=== PATIENT | female | born 1930 | race Caucasian/White ===

== ENCOUNTER 2016-10-20 02:20 | Inpatient (IN) | payer OTHER, MEDICARE ==
[~2016-10-20] VITALS: Ht 175.3 cm; Wt 72.6 kg
[~2016-10-20 02:20] MED LIST: ACETAMINOPHEN500 M4 PO; AMITIZA8 MC1 PO; AMLODIPINE BESYL5 M1 PO; AZO CRANBERRY1 EAC1 PO; CIPRO500 M1 PO; DULOXETINE HCL60 MG PO; FENTANYL1 EAC7 TOP; GABAPENTIN100 M2 PO; LASIX40 M1 PO; LEVOTHYROXINE75 MCG PO; LEXAPRO10 M1 PO; LISINOPRIL2.5 M1 PO; MELATONIN3 M4 PO; MIRALAX17 G1 PO; OMEPRAZOLE10 M1 PO; ROXICODONE15 M1 PO; SPIRONOLACTONE25 M1 PO; TRAMADOL HCL50 M1 PO; VITAMIN D250000 UNIT PO
--- NOTE | 2016-10-20 02:34 | ED GENERAL ADULT ---
History of Present Illness General Chief Complaint: General Adult Stated Complaint: " BIBA PER MEDIC INFECTION" Source: patient, old records, EMS, W10 Exam Limitations: no limitations Vital Signs & Intake/Output Vital Signs & Intake/Output Vital Signs Date Time Temp Pulse Resp B/P Pulse O2 O2 Flow FiO2 Ox Delivery Rate 10/20 0304 Nasal 2.0L Cannula 10/20 0257 100.9 10/20 0223 100.9 123 20 114/55 95 Nasal 2.0L Cannula Allergies Coded Allergies: cetirizine (UNKNOWN PER 03/26/16) diazepam (UNKNOWN PER 03/26/16) Reconcile Medications Acetaminophen 500 MG TABLET 1 TAB PO TID PAIN (Reported) Amlodipine Besylate 5 MG TABLET 1 TAB PO DAILY HTN (Reported) Ciprofloxacin HCl (Cipro) 500 MG TABLET 500 MG PO BID INFECTION Cranberry Conc/C/Bacill Coag (Azo Cranberry Tablet) 1 EACH TABLET 1 TAB PO DAILY SUPPLEMENT (Reported) Duloxetine HCl 60 MG CAPSULE. 1 CAP PO DAILY MENTAL HEALTH (Reported) Ergocalciferol (Vitamin D2) (Vitamin D2) 50,000 UNIT CAPSULE 1 CAP PO Q30D SUPPLEMENT (Reported) Escitalopram Oxalate (Lexapro) 10 MG TABLET 1 TAB PO DAILY MENTAL HEALTH ( Reported) Fentanyl 1 EACH PATCH.TD72 1 PAT TOP Q72H PAIN (Reported) Furosemide (Lasix) 40 MG TABLET 1 TAB PO BID DIURETIC (Reported) Gabapentin 100 MG CAPSULE 2 CAP PO TID UNKNOWN (Reported) Levothyroxine Sodium 75 MCG TABLET 1 TAB PO 0600 THYROID (Reported) Lisinopril 2.5 MG TABLET 1 TAB PO DAILY HTN (Reported) Lubiprostone (Amitiza) 8 MCG CAPSULE 1 CAP PO DAILY GI (Reported) Melatonin 3 MG TABLET 1 TAB PO QPM SLEEP (Reported) Omeprazole 10 MG CAPSULE.DR 1 CAP PO 0600 GI (Reported) Oxycodone HCl (Roxicodone) 15 MG TABLET 1 TAB PO TID PAIN (Reported) moderate to severe pain Polyethylene Glycol 3350 (Miralax) 17 GM POWD.PACK 1 PAC PO DAILY GI ( Reported) dissolve in water Spironolactone 25 MG TABLET 12.5 MG PO DAILY DIURETIC (Reported) Tramadol HCl 50 MG TABLET 50 MG PO Q6 PRN PAIN MILD TO MODERATE Triage Nurses Notes Reviewed? yes HPI: Patient sent in from her senior care for evaluation of fever of 101 and confusion. Patient has a history of dementia but she is more confused than her baseline. Patient is unable to provide any history. ED Sepsis Exam Date of Focused Sepsis Exam: 10/20/16 Time of Focused Sepsis Exam: 314 Sepsis Cardiac Exam: Regular Rate/Rhythm Sepsis Resp Exam: CTA Sepsis Cap Refill Exam: <2 Sec Sepsis Peripheral Pulse Exam: Normal Sepsis Peripheral Pulse Location: Radial Sepsis Skin Color Exam: Normal for Ethnicity Skin Temp/Moisture Exam: Warm/Dry Past History Travel History Traveled to [place] past 21 day No Medical History Any Pertinent Medical History? 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 No Review of Systems Review of Systems Constitutional: Reports: see HPI. Physical Exam Physical Exam General Appearance: well developed/nourished, alert, awake, mild distress Head: atraumatic, normal appearance Eyes: Bilateral: PERRL, EOMI. Ears, Nose, Throat: normal pharynx, normal ENT inspection, hearing grossly normal Neck: normal inspection, supple, full range of motion Respiratory: normal breath sounds, chest non-tender, no respiratory distress, lungs clear Cardiovascular: regular rate/rhythm, normal peripheral pulses, systolic murmur Gastrointestinal: normal bowel sounds, soft, non-tender, no organomegaly Back: normal inspection, normal range of motion Extremities: LLE EDEMA AND ERYTHEMA Neurologic/Psych: no motor/sensory deficits, awake, alert, normal mood/affect Skin: intact, normal color, warm/dry Lymphatic: no anterior cervical venus Core Measures ACS in differential dx? No CVA/TIA Diagnosis: No Severe Sepsis Present: No Septic Shock Present: No Progress Differential Diagnoses I considered the following diagnoses in my evaluation of the patient: [AMI, CELLULITIS, UTI, PNEUMONIA] Plan of Care: Orders Procedure Date/time Status LACTIC ACID 10/20 615 Active Admit to inpatient 10/20 333 Active LACTIC ACID 10/20 315 Active Telemetry/Tinner Automatic 10/20 231 Active Straight Cath 10/20 231 Active BLOOD CULTURE 10/20 231 Active URINALYSIS 10/20 231 Complete TROPONIN LEVEL 10/20 231 Complete COMPREHENSIVE METABOLIC PANEL 10/20 231 Complete CBC WITHOUT DIFFERENTIAL 10/20 231 Complete EKG 10/20 231 Active Laboratory Tests 10/20/16 0322: Urine Color YEL, Urine Clarity CLEAR, Urine pH 7.0, Ur Specific [place] 1.010, Urine Protein TRACE H, Urine Ketones NEG, Urine Nitrite NEG, Urine Bilirubin NEG, Urine Urobilinogen 0.2, Ur Leukocyte Esterase NEG, Ur Microscopic SEDIMENT EXAMINED, Urine RBC 25-50 H, Urine WBC 1-3 H, Ur Epithelial Cells RARE, Urine Hemoglobin LARGE H, Urine Glucose NEG 10/20/16 0240: Anion Gap 10, Estimated GFR 39 L, BUN/Creatinine Ratio 22.3, Glucose 128 H, Calcium 8.2 L, Total Bilirubin 0.7, AST 18, ALT 20, Alkaline Phosphatase 45, Troponin I 0.07, Total Protein 6.7, Albumin 3.4 L, Globulin 3.3, Albumin/ Globulin Ratio 1.0 L, CBC w Diff MAN DIFF ORDERED, RBC 4.29, MCV 75.6 L, MCH 24.6 L, RDW 16.6 H, MPV 7.4, Gran % 91.9 H, Lymphocytes % 4.7 L, Monocytes % 3.3, Eosinophils % 0, Basophils % 0.1, Absolute Granulocytes 10.0 H, Segmented Neutrophils 82 H, Band Neutrophils 7 H, Absolute Lymphocytes 0.5 L, Lymphocytes 5 L, Monocytes 6, Absolute Monocytes 0.4, Absolute Eosinophils 0, Absolute Basophils 0, Platelet Estimate DECREASED, Poikilocytosis FEW, Basophilic Stippling SLIGHT, Anisocytosis 1+, Microcytic Cells 1+, Ovalocytes FEW, Stomatocytes FEW, PUBS MCHC 32.5 L Microbiology 10/20 240 BLOOD: Blood Culture - RECD 10/20 237 BLOOD: Blood Culture - RECD Diagnostic Imaging: Viewed by Me: Radiology Read. Discussed w/RAD: Radiology Read. Radiology Impression: PATIENT: MIHAI DUMONT PRESENT AGE: 86 PATIENT ACCOUNT NO: [id number] : 32 LOCATION: [facility] ORDERING PHYSICIAN: RISSA WALKER MD SERVICE DATE: 10/20/16 EXAM TYPE: RAD - [id number], LEFT EXAMINATION: XR TIBIA AND FIBULA, LEFT CLINICAL INFORMATION: Left lower extremity, erythema and swelling. COMPARISON: Left foot radiography 03/29/2016. TECHNIQUE: 2 views of the left tibia/fibula were obtained. FINDINGS: Diffuse subcutaneous edema about the left lower extremity. No subcutaneous gas is demonstrated. No acute osseous abnormalities. No evidence of osseous erosion. Degenerative changes at the knee. IMPRESSION: Diffuse subcutaneous edema about the left lower extremity concerning for cellulitis. No subcutaneous gas demonstrated. DICTATED BY: ANDRADE BLACKBURN MD DATE/TIME DICTATED:10/20/16303 [employer] HARD[employer] INSTALLER:MONROE DATE/TIME TRANSCRIBED:10/20/16303 CONFIDENTIAL, DO NOT COPY WITHOUT APPROPRIATE AUTHORIZATION. <Electronically signed in Other Vendor System> SIGNED BY: ANDRADE BLACKBURN MD 10/20/16315 CXR Impression: PATIENT: MIHAI DUMONT PRESENT AGE: 86 PATIENT ACCOUNT NO: [id number] : 32 LOCATION: [facility] ORDERING PHYSICIAN: RISSA WALKER MD SERVICE DATE: 10/20/16 EXAM TYPE: RAD - XRY-PORTABLE CHEST XRAY EXAMINATION: XR PORTABLE CHEST CLINICAL INFORMATION: Fever. Pneumonia. COMPARISON: Chest radiography 03/28/2016. TECHNIQUE: Portable view of the chest was obtained. FINDINGS: The lungs are fairly well expanded. There is left greater than right basilar opacification. No pneumothorax. Central vasculature prominence and mild interstitial prominence. Mediastinal contours are unchanged. No acute osseous abnormalities. IMPRESSION: 1. Left greater than right basilar opacification, consider atelectasis or other consolidation such as pneumonia. 2. Possible mild interstitial edema. DICTATED BY: ANDRADE BLACKBURN MD DATE/TIME DICTATED:10/20/16300 [employer] HARDWARE INSTALLER:MONROE DATE/TIME TRANSCRIBED:10/20/16300 CONFIDENTIAL, DO NOT COPY WITHOUT APPROPRIATE AUTHORIZATION. <Electronically signed in Other Vendor System> SIGNED BY: ANDRADE BLACKBURN MD 10/20/16 0319 Initial ED EKG: NSR, LVH, nonspecific ST T wave chg Prior EKG: unchanged Departure Departure Disposition: STILL A PATIENT Condition: Guarded Clinical Impression Primary Impression: Cellulitis Secondary Impressions: Pneumonia Referrals: HAILEY VASQUES MD (PCP/Family) Referred to [facility] as new patient No Departure Forms: Customer Survey General Discharge Information Admission Note Spoke With: HAILEY VASQUES MD Documentation of Exam: Documentation of any treatments & extenuating circumstances including Concerns Regarding Discharge (functional status, medication knowledge or non-compliance, living conditions, etc.) that warrant an admission rather than observation: [IV ABX, IV FLUIDS] Critical Care Note Critical Care Note Critical Care Time: non-applicable
[2016-10-20 02:51] LABS: ABSOLUTE BASOPHIL COUNT 0 /CUMM (0.0-0.2); ABSOLUTE EOSINOPHIL COUNT 0 /CUMM (0.0-0.7); ABSOLUTE LYMPH COUNT 0.5 /CUMM (1.2-3.4); ABSOLUTE MONOCYTE COUNT 0.4 /CUMM (0.10-0.60); BASOPHIL % 0.1 % (0.0-2.0); EOSINOPHIL % 0 % (0-5); GRANULOCYTE % 91.9 % (42.2-75.2); HEMATOCRIT 32.5 % (37-47); MEAN CORPUSCULAR HGB 24.6 PG (27.0-31.0); MEAN CORPUSCULAR HGB CONC 32.5 G/DL (33.0-37.0); MEAN CORPUSCULAR VOLUME 75.6 FL (81.0-99.0); MEAN PLATELET VOLUME 7.4 FL (7.4-10.4); PLATELET COUNT 91 /CUMM (130-400); RBC DISTRIBUTION WIDTH 16.6 % (11.5-14.5); RED BLOOD CELL CT 4.29 /CUMM (4.20-5.40); WHITE BLOOD CELL COUNT 10.9 /CUMM (4.8-10.8)
--- NOTE | 2016-10-20 03:10 | RADIOLOGY REPORT ---
EXAMINATION: XR PORTABLE CHEST CLINICAL INFORMATION: Fever. Pneumonia. COMPARISON: Chest radiography 03/28/2016. TECHNIQUE: Portable view of the chest was obtained. FINDINGS: The lungs are fairly well expanded. There is left greater than right basilar opacification. No pneumothorax. Central vasculature prominence and mild interstitial prominence. Mediastinal contours are unchanged. No acute osseous abnormalities. IMPRESSION: 1. Left greater than right basilar opacification, consider atelectasis or other consolidation such as pneumonia. 2. Possible mild interstitial edema.
--- NOTE | 2016-10-20 03:16 | RADIOLOGY REPORT ---
EXAMINATION: XR TIBIA AND FIBULA, LEFT CLINICAL INFORMATION: Left lower extremity, erythema and swelling. COMPARISON: Left foot radiography 03/29/2016. TECHNIQUE: 2 views of the left tibia/fibula were obtained. FINDINGS: Diffuse subcutaneous edema about the left lower extremity. No subcutaneous gas is demonstrated. No acute osseous abnormalities. No evidence of osseous erosion. Degenerative changes at the knee. IMPRESSION: Diffuse subcutaneous edema about the left lower extremity concerning for cellulitis. No subcutaneous gas demonstrated.
[2016-10-20] MEDS ORDERED: BISACODYL10 M1 PR (03:54)
[2016-10-20] MEDS ORDERED: FLEET ENEMA133 ML PR (03:55)
[2016-10-20] MEDS ORDERED: MILK OF MA400 MG/52 PO (03:56)
[2016-10-20] MEDS ORDERED: MINTOX SUSPENS355 ML PO (03:57)
[2016-10-20 07:08] VITALS: BP 100/50
--- NOTE | 2016-10-20 07:42 | Admission Certification ---
Admission Certification Certification Statement - As attending physician, I certify that at the time of - admission, based on clinical presentation, severity of - symptoms, need for further diagnostic testing and - therapeutic interventions, and risk of adverse outcomes - without in-hospital treatment, in my clinical assessment, - this patient requires an acute hospital stay for a minimum - of two nights or longer. I have also considered psychsocial - factors such as support system, advanced age, financial - issues, cognitive issues, and failed out-patient treatments, - past re-admission history, safety of patient, and lack of - compliance as applicable. Specific rationale supporting this admission is: Patient was found unresponsive and lethargic this morning with a fever of 101 she's got sepsis most likely is from the cellulitis of the leg as well as pneumonia.
--- NOTE | 2016-10-20 07:52 | PN- Att Addend ---
Attending Addendum Attending Brief Note Attending note. 86-year-old lady with long-standing history of chronic cellulitis of the leg with chronic skin changes and chronic pain syndrome patient was found lethargic and unresponsive this morning by the nurse at the [facility] facility also accompanied with a fever of 101. She was transferred to the hospital for evaluation. She is a DNR/DNI do not hospitalize but however this situation did notice was worried about her unresponsiveness and therefore she was transferred to the hospital. Patient is awake alert complaining that she is not feeling well she is weak and her legs are painful. She denies any cough or congestion any nausea vomiting. Past medical history History of CHF hypertension dyslipidemia history of 4 para 4 neuropathy history of dementia history of chronic back pain and chronic leg pain history of osteoarthritis of the lumbosacral spine spinal stenosis and osteoarthritis of the hip. History of GERD peptic ulcer disease history of the CKG stage II History of opioid dependence On examination vital signs blood pressure is 120/60 heart rate is 120 respirations are 22 O2 sat this 95% on 2 L temperature is 100.9. Patient awake alert Conjunctivae is pale sclerae anicteric S1-S2 is normal lungs shows diminished air entry bilaterally both bases abdomen is soft nontender bowel sounds are present Extremities shows chronic skin changes bilateral lower extremities with pigmentation of skin and shriveling of the skin with bipedal edema which is 1-2+ . Labs Hemoglobin is 10.6 hematocrit 32.5 white count 10.9sodium 136 potassium 4.0 chloride 99 bicarbonate 30 [place] 20 creatinine 1.3 UA is negative WBC is 2-3 Chest x-ray shows no evidence of any clear-cut infection. EKG shows normal sinus rhythm with LVH and nonspecific ST-T changes. Assessment most likely sepsis secondary to cellulitis of the leg. The patient IV Unasyn. 2 blood cultures urine cultures repeat chest x-ray after 48 hours continue IV fluids.
--- NOTE | 2016-10-20 08:16 | History & Physical ---
See Addendum General Information and HPI MD Statement: I have seen and personally examined JULIANNA DUMONT and documented this H&P. The patient is a 86 year old F who presented with a patient stated chief complaint of fever and lethary. Source of Information: [facility], ER records Exam Limitations: unable to give history, clinical condition, dementia History of Present Illness: 86-year-old woman with past medical history of hypertension, dementia, stage IV kidney disease, episodes of GI bleed in the past, chronic venous stasis ulcers, chronic cellulitis, thick bark-like legs and feet, who presented to ED from [facility] after she was found to be very lethargic , unresponsive and fever. The patient has advanced dementia and is unable to provide any history. Most of the history was taken from the [facility], ED records and Dr. Vasques, who knows the patient well. I called the facility and spoke with her nurse there, Marcela, who provided with further history. According to her the patient was found to have a fever of 101 at the nursing care facility along with being very lethargic and difficult to arouse. She was given Tylenol. She called Dr. Vasques who suggested to do blood work and give her antibiotics at the facility as the patient is DNI/DNR and DO NOT HOSPITALIZE, however because th patient had altered mental status with a fever she sent the patient to the [facility] ED where she was found to be in sepsis with a fever fof 101, hypotensive to 114/55 --> 81/47, leukocytosis of 20.1, no bands, and AMS. I called the POA listed, Justyna Monteiro (Renee), who is the patient's daughter according to Marcela, multiple times on all three numbers listed to discuss goals of care. The three numbers listed were: Home: Bus: [phone] I left a message on the [email or web address] on the cell phone number ([phone] ). The 'bus' number was reached but they stated there is no employee by the name of Justyna Monteiro (Renee) there. Marcela, the facility nurse, stated she got in touch with the POA before sending the patient to the ED. She also mentioned the POA has recently moved to [place] and previoulsy used to visit Julianna at the nursing care facility. The patient, while being examined by medicine on the floor was awake, alert, oriented to person, knew where she is from, that is [place], answerng all questions appropriately, not in any distress but was in pain and was asking for her oxycodone. Also stated Tylenol is 'useless.' Denied any chest pain, SOB, abdominal pain, N/V/D, but has constipation. Allergies/Medications Allergies: Coded Allergies: cetirizine (UNKNOWN PER 03/26/16) diazepam (UNKNOWN PER 03/26/16) Home Med list Acetaminophen 500 MG TABLET 1 TAB PO TID PAIN (Reported) Bisacodyl 10 MG SUPP.RECT 10 MG LA PRN IF MOM NOT EFFECTIVE (Reported) Cranberry Extract (Cranberry) 200 MG CAPSULE 1 TAB PO DAILY UTI PREVENTION ( Reported) Duloxetine HCl 60 MG CAPSULE.DR 1 CAP PO DAILY MENTAL HEALTH (Reported) Escitalopram Oxalate (Lexapro) 10 MG TABLET 1 TAB PO DAILY MENTAL HEALTH ( Reported) Fentanyl 1 EACH PATCH.TD72 1 PAT TOP Q72H PAIN (Reported) Furosemide (Lasix) 40 MG TABLET 1 TAB PO BID DIURETIC (Reported) Reason to Stop at ADM: HYPOTENSIVE AND ON FLUIDS Gabapentin 100 MG CAPSULE 3 CAP PO TID NEUROPATHY/PAIN (Reported) Levothyroxine Sodium 75 MCG TABLET 1 TAB PO 0600 THYROID (Reported) Lisinopril 2.5 MG TABLET 1 TAB PO DAILY HTN (Reported) Reason to Stop at ADM: HYPOTENSIVE Lubiprostone (Amitiza) 8 MCG CAPSULE 1 CAP PO DAILY GI (Reported) Mag Hydrox/Al Hydrox/Simeth (Mintox Suspension) 200 MG-200 MG-20 MG/5 ML ORAL.SUSP 20 ML PO Q6PRN PRN GI UPSET (Reported) Magnesium Hydroxide (Milk Of Magnesia) 400 MG/5 ML ORAL.SUSP 30 ML PO PRN CONSTIPATION (Reported) Na Phos,M-B/Na Phos,Di-Ba (Fleet Enema) 19 GRAM-7 GRAM/118 ML ENEMA IF DUCOLAX INEFFECTIVE (Reported) Omeprazole 10 MG CAPSULE.DR 1 CAP PO 0600 GI (Reported) Oxycodone HCl (Roxicodone) 15 MG TABLET 1 TAB PO TID PAIN (Reported) Reason to Stop at ADM: as per the [facility], THIS WAS DISCONTINUED ON 09/11/16 Oxycodone HCl 10 MG TABLET 1 TAB PO TID PAIN (Reported) Polyethylene Glycol 3350 (Miralax) 17 GM POWD.PACK 1 PAC PO DAILY GI ( Reported) dissolve in water Spironolactone 25 MG TABLET 12.5 MG PO DAILY DIURETIC (Reported) Reason to Stop at ADM: HYPOTENSIVE Compliance With Home Meds: GOOD Past History Travel History Traveled to [place] past 21 day No Medical History Neurological: dementia, NEUROPATHY EENT: NONE Cardiovascular: CHF, hypertension, hyperlipidemia Respiratory: NONE Gastrointestinal: GERD, peptic ulcer disease, upper GI bleed, duodenitis gastritis Hepatic: NONE Renal: STAGE 4 CKD Musculoskeletal: chronic back pain, osteoarthritis Psychiatric: anxiety Endocrine: hypothyroidism Blood Disorders: thrombocytopenia Cancer(s): NONE 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 [facility] Facility Services at Home: Nursing Primary Language: Romansh Living Will? yes Functional Ability ADLs Needs Assist: dressing, eating, toileting, bathing. Ambulation: LIVES AT A NURSING CARE FACILITY IADLs Needs Assist: shopping, housework, finances, food prep, telephone, transportation, medication admin. Review of Systems Review of Systems Constitutional: Reports: see HPI. EENTM: Reports: no symptoms. Cardiovascular: Reports: no symptoms. Respiratory: Reports: no symptoms. GI: Reports: no symptoms. Genitourinary: Reports: no symptoms. Musculoskeletal: Reports: muscle pain. Skin: Reports: change in skin color, erythema. Neurological/Psychological: Reports: confusion, dementia. Exam & Diagnostic Data Last 24 Hrs of Vital Signs/I&O Vital Signs Date Time Temp Pulse Resp B/P Pulse O2 O2 Flow FiO2 Ox Delivery Rate 10/20 0800 Nasal 2.0L Cannula 10/20 0708 98.8 75 20 100/50 95 Nasal 2.0L Cannula 10/20 0501 98.9 82 18 94/52 99 Nasal 2.0L Cannula 10/20 0430 99.3 10/20 0400 99.3 82 18 81/47 96 Nasal 2.0L Cannula 10/20 0304 Nasal 2.0L Cannula 10/20 0257 100.9 10/20 0223 100.9 123 20 114/55 95 Nasal 2.0L Cannula Intake & Output 10/20 1600 10/20 0800 10/20 0000 Intake Total 500 Output Total Balance 500 Intake, IV 500 Patient 130 lb Weight Physical Exam General Appearance Alert, Cooperative, No Acute Distress, ORIENTED TO PERSON AND KNOWS WHERE SHE IS FROM, DID NOT KNOW SHE IS IN [facility] Neck Supple, No JVD Cardiovascular Regular Rate, Normal S1, Normal S2, No Murmurs Lungs Clear to Auscultation, Normal Air Movement Abdomen Normal Bowel Sounds, Soft, No Tenderness Neurological Normal Speech, Normal Tone, ABLE TO FOLLOW SOME COMMANDS, ANSWERING TO QUESTIONS APPROPRIATELY, UNABLE TO MOVE LEGS, NO SENSATIONS IN THE LEGS Extremities LEG EDEMA, THICK, BARK LIKE SKIN OF BILATERAL EXTREMITIES, FOUL SMELL, ERYTHEMATOUS, HYPERPIGMENTED, LEFT > RIGHT Vascular UNABLE TO FEEL PULSES IN NICOLE FEET DUE TO THICK SKIN Last 24 Hrs of Labs/Khang: Laboratory Tests 10/20/16 0409: Lactic Acid 0.9 10/20/16 0322: Urine Color YEL, Urine Clarity CLEAR, Urine pH 7.0, Ur Specific [place] 1.010, Urine Protein TRACE H, Urine Ketones NEG, Urine Nitrite NEG, Urine Bilirubin NEG, Urine Urobilinogen 0.2, Ur Leukocyte Esterase NEG, Ur Microscopic SEDIMENT EXAMINED, Urine RBC 25-50 H, Urine WBC 1-3 H, Ur Epithelial Cells RARE, Urine Hemoglobin LARGE H, Urine Glucose NEG 10/20/16 0240: Anion Gap 10, Estimated GFR 39 L, BUN/Creatinine Ratio 22.3, Glucose 128 H, Calcium 8.2 L, Total Bilirubin 0.7, AST 18, ALT 20, Alkaline Phosphatase 45, Troponin I 0.07, Total Protein 6.7, Albumin 3.4 L, Globulin 3.3, Albumin/ Globulin Ratio 1.0 L, CBC w Diff MAN DIFF ORDERED, RBC 4.29, MCV 75.6 L, MCH 24.6 L, RDW 16.6 H, MPV 7.4, Gran % 91.9 H, Lymphocytes % 4.7 L, Monocytes % 3.3, Eosinophils % 0, Basophils % 0.1, Absolute Granulocytes 10.0 H, Segmented Neutrophils 82 H, Band Neutrophils 7 H, Absolute Lymphocytes 0.5 L, Lymphocytes 5 L, Monocytes 6, Absolute Monocytes 0.4, Absolute Eosinophils 0, Absolute Basophils 0, Platelet Estimate DECREASED, Poikilocytosis FEW, Basophilic Stippling SLIGHT, Anisocytosis 1+, Microcytic Cells 1+, Ovalocytes FEW, Stomatocytes FEW, PUBS MCHC 32.5 L Microbiology 10/200 BLOOD: Blood Culture - RECD 10/20 237 BLOOD: Blood Culture - RECD Diagnostic Data CXR Results 1. Left greater than right basilar opacification, consider atelectasis or other consolidation such as pneumonia. 2. Possible mild interstitial edema. Other Results x RAY OF TIBIA ANF FIBULA: FINDINGS: Diffuse subcutaneous edema about the left lower extremity. No subcutaneous gas is demonstrated. No acute osseous abnormalities. No evidence of osseous erosion. Degenerative changes at the knee. IMPRESSION: Diffuse subcutaneous edema about the left lower extremity concerning for cellulitis. No subcutaneous gas demonstrated. Assessment/Plan Assessment: 86-year-old woman with past medical history of hypertension, dementia, stage IV kidney disease, episodes of GI bleed, chronic venous stasis ulcers, chronic cellulitis, thick bark-like legs and feet, who presented to ED from [facility] after she was found to be very lethargic, unresponsive and fever. The patient has advanced dementia and is unable to provide any history. Most of the history was taken from the -10, ED records and Dr. Vasques, who knows the patient well. The patient was supposed to be DO NOT HOSPITALIZE but she was sent to the ED and was admited due to sepsis secondary to cellulitis. On admission he was found to have a BP of 114/55 that decraesed to 81/47 but responded to fluids and came up to 100/50 after one bag. Temp of 100.9, but this was post Tyenol that was given at the facility, HR of 123, decreased to 75 after hydration, RR 18, and oxygen saturation of 99 on 2 liters of oxygen. The CHEST X ray showed eft greater than right basilar opacification, consider atelectasis or other consolidation such as pneumonia. [id number], LEFT: Diffuse subcutaneous edema about the left lower extremity concerning for cellulitis. No subcutaneous gas demonstrated. WC 10.1, bands of 7, BUN/Cr 29/1.3, Glucose 128 Assesment and Plan: To general med Vitals every shift 1. Sepsis secondary to cellulitis: - Although the patient is a DNI DNR and do not hospitalize, she has been admitted for sepsis due to cellulitis. It is important to note that the patient has history of chronic cellulitis, chronic venous stasis ulcers, and bark-like thick skin. - For now will follow blood cultures - We'll treat for cellulitis with IV Unasyn - Tylenol as needed - Wound consult - Leg elevation - Compression stockings 2. Chronic kidney disease stage IV: - At baseline Will monitor - Avoid nephrotoxic drugs 3. History of chronic pain: The patient has his chronic pain and opioid dependence - As she came in with lethargy, although her mental status is different and she is very much alert now, will avoid overdose of narcotics - We'll continue his fentanyl patch to avoid withdrawal, 50 g every 72 hours, doron [place] 10/19/2016 could attribute and from [place] - Recently, on 09/11/16, dose of Roxicodone was decreased from 15 mg day to 10 mg daily, will continue with that for now. Will hold or decrease dose further if the patient becomes more lethargic - Patient takes gabapentin 300 mg 3 times a day however because of her kidney distally it is advisable that her dose should be lowered. The pharmacy she will be started on 100 mg 3 times a day. Keeping in mind the patient is DNI DNR and was a do not rehospitalize, a few the aim is for her to be more comfortable and she is drifting more towards comfort care measures then we may increase the dose of gabapentin keeping in mind that comfort measures and pain control would be priorities for Dr. greene and keep the chronic kidney disease in mind. 4. Continue with Lexapro, Cymbalta, levothyroxine, omeprazole 5. Constipation: The patient is on MiraLAX, mag ox, and images are, that should be continued while she is in the hospital 6. Patient has history of hypertension and is on lisinopri 2.5 mg daily, Lasix 40 mg twice a day and Aldactone 12.5 mg by mouth daily. Because she came in with hypotension, will hold off on all these medications for now. Keep hematocrit the respirator status and blood pressure and restart as needed. - EF of 65% on last echocardiogram in March 2016 7. Pain pathway with Tylenol as mild, oxycodone as moderate and fentanyl as severe 8. Regular diet with thin liquids (this was confirmed with Marcela, the patient' s nurse at [facility]) 9. Subcutaneous heparin for DVT prophylaxis 10. DNI/DNR - The patient was actually do not rehospitalize however she was sent to the hospital for fever and altered mental status. I tried calling the power of real estate attorney and all the numbers provided as mentioned in HPI however there was no response. Marcela, the nurse that he whacked said that she got in touch with Meli Monteiro, the power of real estate attorney, and that she is aware her mother is in the hospital. - It is important to get in touch with her again to discuss further goals of care and the extent of medical intervention duing this hospital admission, such as central line and transferred to ICU. As Ranked By This Provider Problem List: 1. Chronic pain 2. Sepsis 3. Hypothyroid 4. Fever 5. CKD (chronic kidney disease) 6. Hypertension 7. Cellulitis Core Measures/Miscellaneous Acute Coronary Syndrome ACS Diagnosis: No Cerebrovascular Accident CVA/TIA Diagnosis: No Congestive Heart Failure CHF Diagnosis: No Venous Thromboembolism VTE Risk Factors: Acute medical illness, Age > 40, Immobility, paresis, Obesity VTE Prophylaxis Ordered Inpt: [facility]- [facility] prophylaxis d/t: No contraindications No VTE Pharm Prophylaxis d/t: No contraindications VTE Diagnosis: No VTE Type: NONE VTE Confirmed by (Test): NONE Severe Sepsis Severe Sepsis Present: No BC x2: Yes Lactic Acid x2: Yes IV ABX Broad Spectrum: Yes Septic Shock Septic Shock Present: No Miscellaneous Documentation Attending Case Discussed With: HAILEY VASQUES MD Primary Care Physician: HAILEY VASQUES MD Patient sees these Specialists NONE Level of Patient Care: General Medicine Resident Review Statement Resident Statement: examined this patient, discussed with applications intern, reviewed EMR data (avail), reviewed images Other Findings: SAME ABOVE
--- NOTE | 2016-10-20 10:42 | Cons- Wound Care ---
General Information and HPI Consulting Request Date of Consult: 10/20/16 Requested By: HAILEY VASQUES MD Reason for Consult: Left leg cellulitis History of Present Illness: Patient is an 86-year-old woman with history of dementia chronic lymphedema chronic kidney disease admitted with fever leukocytosis and suspected cellulitis. She was previously seen for right lower extremity venous stasis ulcer which has healed. Allergies/Medications Allergies: Coded Allergies: cetirizine (UNKNOWN PER 03/26/16) diazepam (UNKNOWN PER 03/26/16) Home Med List: Acetaminophen 500 MG TABLET 1 TAB PO TID PAIN (Reported) Amlodipine Besylate 5 MG TABLET 1 TAB PO DAILY HTN (Reported) Bisacodyl 10 MG SUPP.RECT 10 MG PA PRN IF MOM NOT EFFECTIVE (Reported) Duloxetine HCl 60 MG CAPSULE.DR 1 CAP PO DAILY MENTAL HEALTH (Reported) Escitalopram Oxalate (Lexapro) 10 MG TABLET 1 TAB PO DAILY MENTAL HEALTH ( Reported) Fentanyl 1 EACH PATCH.TD72 1 PAT TOP Q72H PAIN (Reported) Furosemide (Lasix) 40 MG TABLET 1 TAB PO BID DIURETIC (Reported) Gabapentin 100 MG CAPSULE 2 CAP PO TID UNKNOWN (Reported) Levothyroxine Sodium 75 MCG TABLET 1 TAB PO 0600 THYROID (Reported) Lisinopril 2.5 MG TABLET 1 TAB PO DAILY HTN (Reported) Lubiprostone (Amitiza) 8 MCG CAPSULE 1 CAP PO DAILY GI (Reported) Mag Hydrox/Al Hydrox/Simeth (Mintox Suspension) 200 MG-200 MG-20 MG/5 ML ORAL.SUSP 20 ML PO Q6PRN PRN GI UPSET (Reported) Magnesium Hydroxide (Milk Of Magnesia) 400 MG/5 ML ORAL.SUSP 30 ML PO PRN CONSTIPATION (Reported) Melatonin 3 MG TABLET 1 TAB PO QPM SLEEP (Reported) Na Phos,M-B/Na Phos,Di-Ba (Fleet Enema) 19 GRAM-7 GRAM/118 ML ENEMA IF DUCOLAX INEFFECTIVE (Reported) Omeprazole 10 MG CAPSULE.DR 1 CAP PO 0600 GI (Reported) Oxycodone HCl (Roxicodone) 15 MG TABLET 1 TAB PO TID PAIN (Reported) Reason to Stop at ADM: as per the [facility], THIS WAS DISCONTINUED ON 09/11/16 Polyethylene Glycol 3350 (Miralax) 17 GM POWD.PACK 1 PAC PO DAILY GI ( Reported) dissolve in water Spironolactone 25 MG TABLET 12.5 MG PO DAILY DIURETIC (Reported) Tramadol HCl 50 MG TABLET 50 MG PO Q6 PRN PAIN MILD TO MODERATE Review of Systems Review of Systems: Noncontributory Past History Travel History Traveled to [place] past 21 day No Medical History Neurological: dementia, NEUROPATHY EENT: NONE Cardiovascular: CHF, hypertension, hyperlipidemia Respiratory: NONE Gastrointestinal: GERD, peptic ulcer disease, upper GI bleed, duodenitis gastritis Hepatic: NONE Renal: STAGE 4 CKD Musculoskeletal: chronic back pain, osteoarthritis Psychiatric: anxiety Endocrine: hypothyroidism Blood Disorders: thrombocytopenia Cancer(s): NONE [employer] 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 [facility] Facility Services at Home: Nursing Primary Language: Bruneian Living Will? yes ECHO Results (as available) Date of last Echo 03/28/16 EF% 65 Exam & Diagnostic Data Vital Signs and I&O Vital Signs Result Date Time O2 Delivery Nasal Cannula 10/20 08 O2 Flow Rate 2.0L 10/20 08 Pulse Ox 95 10/20 0708 B/P 100/50 10/20 07 Temp 98.8 10/20 0708 Pulse 75 10/20 0708 Resp 20 10/20 0708 Exam of both lower extremities show evidence of chronic edema left greater than right there are more specific changes of lymphedema over the left lower extremity there are no open wounds evident there is significant erythema of the left lower extremity extending to the posterior thigh and the popliteal area with erythema induration and some swelling to dorsalis pedis pulses are palpable bilaterally Assessment/Plan Impression/Plan: 86-year-old woman with chronic lymphedema admitted with suspected cellulitis of the left leg. Her edema appears to have diminished with bedrest. There do not appear to be open wounds though she may have small areas of skin breakdown as the portal of entry. Recommend leg elevation and leg moisturization follow-up cultures and complete her course of antibiotics. She would likely benefit from application of compression stockings following discharge to help better manage her edema. Consult Acknowledgment - Thank you for your consult request.
[2016-10-20] MEDS ORDERED: CRANBERRY200 MG PO (10:45)
[2016-10-20] MEDS ORDERED: OXYCODONE HCL10 M2 PO (10:45)
[2016-10-20 14:24] VITALS: BP 140/80
[2016-10-20 22:30] VITALS: BP 100/50
[2016-10-21 06:30] VITALS: BP 112/58
[2016-10-21 08:03] LABS: ABSOLUTE BASOPHIL COUNT 0 /CUMM (0.0-0.2); ABSOLUTE EOSINOPHIL COUNT 0.1 /CUMM (0.0-0.7); ABSOLUTE GRANULOCYTE CT 5.9 /CUMM (1.4-6.5); ABSOLUTE LYMPH COUNT 0.8 /CUMM (1.2-3.4); ABSOLUTE MONOCYTE COUNT 0.3 /CUMM (0.10-0.60); BASOPHIL % 0.1 % (0.0-2.0); EOSINOPHIL % 0.8 % (0-5); GRANULOCYTE % 83.1 % (42.2-75.2); HEMATOCRIT 30.3 % (37-47); MEAN CORPUSCULAR HGB 24.9 PG (27.0-31.0); MEAN CORPUSCULAR HGB CONC 32.8 G/DL (33.0-37.0); MEAN CORPUSCULAR VOLUME 75.9 FL (81.0-99.0); MEAN PLATELET VOLUME 8.1 FL (7.4-10.4); RBC DISTRIBUTION WIDTH 16.2 % (11.5-14.5); RED BLOOD CELL CT 3.99 /CUMM (4.20-5.40); WHITE BLOOD CELL COUNT 7.1 /CUMM (4.8-10.8)
[2016-10-21 09:03] VITALS: BP 120/70
--- NOTE | 2016-10-21 09:03 | Event Note ---
Event Note Event Note: Troponin elevated to 0.12, patient has ongoing chest pain alongwith shortness of breath and nausea. No ekg findings, will transfer to telemetry floor for continous cardiac monitoring. Will trend troponin and ekg. Attending made aware of this event, spoke to , he is okay with the transfer, [facility].
--- NOTE | 2016-10-21 09:20 | PN- Housestaff ---
DANNA PONCE 10/21/16 0911: Subjective Follow-up For: Sepsis secondary to cellulitis: Chronic kidney disease stage IV: Complaints: nausea Subjective: Patient was seen and examined this morning. She was complaining of nausea but denied any chest pain or shortness of breath. Of note patient complained of chest pain around 5:30 AM this morning and EKG and troponin were ordered and around 8:30 AM results came back and her troponins went up from 07 on admission to 0.1 210 creatinine went down from 1.2-1.1. Due to concern of ACS EKG was reviewed which didn't show any acute changes but was informed and I spoke with Dr. Berry and was advised to transfer patient to telemetry floor for closer monitoring. Review of Systems Constitutional: Reports: weakness. EENTM: Denies: blurred vision. Cardiovascular: Reports: edema. Denies: chest pain. Respiratory: Denies: cough, short of breath. Gastrointestinal: Reports: bloating, nausea. Genitourinary: Denies: dysuria. Musculoskeletal: Reports: joint pain. Objective Last 24 Hrs of Vital Signs/I&O Vital Signs Date Time Temp Pulse Resp B/P Pulse O2 O2 Flow FiO2 Ox Delivery Rate 10/21 0903 98.2 71 20 120/70 97 Room Air 10/21 0800 95 Nasal 2.0L Cannula 10/21 0630 97.5 60 18 112/58 95 Nasal 2.0L Cannula 10/20 2230 98.5 76 20 100/50 92 Nasal 2.0L Cannula 10/20 1424 98.5 80 20 140/80 94 10/20 1318 Nasal 2.0L Cannula Intake & Output 10/21 1600 10/21 0800 10/21 0000 Intake Total 600 240 Output Total 200 250 325 Balance -200 350 -85 Intake, IV 600 Intake, Oral 240 Number 1 1 2 Bowel Movements Output, Urine 200 250 325 Physical Exam General Appearance: Alert, Oriented X3, No Acute Distress Cardiovascular: systolic murmur Lungs: Normal Air Movement Abdomen: distended Extremities: bilateral lower extremity edema with chronic skin changes Current Medications: Current Medications Sig/Kian Start time Last Medication Dose Route Stop Time Status Admin Acetaminophen 500 MG TID 10/20 1000 AC 10/20 PO 2126 Acetaminophen 650 MG Q6P PRN 10/20 0830 AC 10/21 PO 0316 Al Hydroxide/Mg 30 ML Q6P PRN 10/20 0945 AC Hydroxide PO Ampicillin Sodium/ 1,500 MG Q12H 10/20 1000 AC 10/21 Sulbactam Sodium IV 0851 Sodium Chloride 100 ML Aspirin 325 MG ONCE ONE 10/21 0900 DC 10/21 PO 10/21 0901 0902 Bisacodyl 10 MG DAILY PRN 10/20 0945 AC [place] Duloxetine HCl 60 MG DAILY 10/21 1000 AC PO Escitalopram Oxalate 10 MG DAILY 10/21 1000 AC PO Fentanyl Citrate 50 MCG Q72H 10/20 0945 AC TOP Gabapentin 100 MG TID 10/20 1600 AC 10/20 PO 2126 Heparin Sodium 5,000 UNIT Q8 10/20 1400 AC 10/21 (Porcine) SC 0614 Influenza Virus 0.5 ML ONCE ONE 10/20 1515 DC Vaccine IM 10/20 1516 Levothyroxine Sodium 0.075 MG 0600 10/21 0600 AC 10/21 PO 0613 Lubiprostone 8 MCG DAILY 10/20 1043 AC PO Magnesium Hydroxide 30 ML DAILY PRN 10/20 0945 AC PO Morphine Sulfate 2 MG Q6 PRN 10/21 0900 AC IV Nitroglycerin 0.4 MG Q 5 MINUTES X 3 DO.. 10/21 0900 AC SL Omeprazole 20 MG DAILY AC 10/20 0945 AC 10/21 PO 0613 Ondansetron HCl 4 MG Q6 PRN 10/21 0900 AC 10/21 IV 0858 Oxycodone HCl 10 MG Q8 10/20 1400 AC 10/21 PO 0618 Oxycodone HCl 5 MG Q6P PRN 10/20 1000 AC 10/20 PO 1126 Polyethylene Glycol 17 GM DAILY 10/20 1000 AC PO Sodium Chloride 1,000 ML Q13H 10/20 0830 AC 10/20 IV 2127 Last 24 Hrs of Lab/Khang Results Last 24 Hrs of Labs/Mics: Laboratory Tests 10/21/16614: Troponin I Cancelled 10/21/16614: Anion Gap 9, Estimated GFR 47 L, BUN/Creatinine Ratio 22.7, Troponin I 0.12 *H, CBC w Diff Pending, WBC Pending, RBC Pending, Hgb Pending, Hct Pending, MCV Pending, MCH Pending, RDW Pending, Plt Count Pending, MPV Pending, PUBS MCHC Pending Assessment/Plan Assessment: 6-year-old woman with past medical history of hypertension, dementia, stage IV kidney disease, episodes of GI bleed, chronic venous stasis ulcers, chronic cellulitis, thick bark-like legs and feet, who presented to ED from [facility] after she was found to be very lethargic, unresponsive and fever. The patient has advanced dementia and is unable to provide any history. Most of the history was taken from the [facility], ED records and Dr. Madsen, who knows the patient well. The patient was supposed to be DO NOT HOSPITALIZE but she was sent to the ED and was admited due to sepsis secondary to cellulitis. On admission he was found to have a BP of 114/55 that decraesed to 81/47 but responded to fluids and came up to 100/50 after one bag. Temp of 100.9, but this was post Tyenol that was given at the facility, HR of 123, decreased to 75 after hydration, RR 18, and oxygen saturation of 99 on 2 liters of oxygen. The CHEST X ray showed eft greater than right basilar opacification, consider atelectasis or other consolidation such as pneumonia. [id number], LEFT: Diffuse subcutaneous edema about the left lower extremity concerning for cellulitis. No subcutaneous gas demonstrated. WC 10.1, bands of 7, BUN/Cr 29/1.3, Glucose 128 Assesment and Plan: To general med Vitals every shift 1. Sepsis secondary to cellulitis: - Although the patient is a DNI DNR and do not hospitalize, she has been admitted for sepsis due to cellulitis. It is important to note that the patient has history of chronic cellulitis, chronic venous stasis ulcers, and bark-like thick skin. - -Patient is on IV Unasyn - Tylenol as needed - Wound consult appreciated - Leg elevation - Compression stockings 2. Chronic kidney disease stage IV: - At baseline Will monitor - Avoid nephrotoxic drugs 3. History of chronic pain: The patient has his chronic pain and opioid dependence - As she came in with lethargy, although her mental status is different and she is very much alert now, will avoid overdose of narcotics - We'll continue his fentanyl patch to avoid withdrawal, 50 g every 72 hours, [facility] 10/19/2016 could attribute and from [facility] - Recently, on 09/11/16, dose of Roxicodone was decreased from 15 mg day to 10 mg daily, will continue with that for now. Will hold or decrease dose further if the patient becomes more lethargic - Patient takes gabapentin 300 mg 3 times a day however because of her kidney distally it is advisable that her dose should be lowered. The pharmacy she will be started on 100 mg 3 times a day. Keeping in mind the patient is DNI DNR and was a do not rehospitalize, a few the aim is for her to be more comfortable and she is drifting more towards comfort care measures then we may increase the dose of gabapentin keeping in mind that comfort measures and pain control would be priorities for Dr. greene and keep the chronic kidney disease in mind. 4. Continue with Lexapro, Cymbalta, levothyroxine, omeprazole 5. Constipation: The patient is on MiraLAX, mag ox, and images are, that should be continued while she is in the hospital 6. Patient has history of hypertension and is on lisinopri 2.5 mg daily, Lasix 40 mg twice a day and Aldactone 12.5 mg by mouth daily. Because she came in with hypotension, will hold off on all these medications for now. Keep hematocrit the respirator status and blood pressure and restart as needed. - EF of 65% on last echocardiogram in March 2016 7. Pain pathway with Tylenol as mild, oxycodone as moderate and fentanyl as severe 8. Regular diet with thin liquids (this was confirmed with Marcela, the patient' s nurse at [facility]) 9. Subcutaneous heparin for DVT prophylaxis 10. An episode of chest pain, nausea and elevated troponins We have to rule out ACS. Patient needs to be transferred to telemetry floor for closer monitoring. Patient was discussed with Dr. Berry and he will see the patient today. Dr. Julian was also informed. We will trend troponins and EKGs. 11. DNI/DNR - The patient was actually do not rehospitalize however she was sent to the hospital for fever and altered mental status. I tried calling the power of corporate associate attorney and all the numbers provided as mentioned in HPI however there was no response. Marcela, the nurse that he whacked said that she got in touch with Meli Monteiro, the power of corporate associate attorney, and that she is aware her mother is in the hospital. - It is important to get in touch with her again to discuss further goals of care and the extent of medical intervention duing this hospital admission, such as central line and transferred to ICU. Problem List: 1. Cellulitis 2. CKD (chronic kidney disease) 3. Hypertension Pain Ratin Pain Location: Lower extremities Pain Goal: Remain pain free Pain Plan: Tylenol Tomorrow's Labs & Rationales: CBC and CMP TIFFANIE ANNA MD 10/21/16 1211: Objective Last 24 Hrs of Vital Signs/I&O Vital Signs Date Time Temp Pulse Resp B/P Pulse O2 O2 Flow FiO2 Ox Delivery Rate 10/21 1045 98.3 79 20 118/54 94 Nasal 2.0L Cannula 10/21 0903 98.2 71 20 120/70 97 Room Air 10/21 0800 95 Nasal 2.0L Cannula 10/21 0630 97.5 60 18 112/58 95 Nasal 2.0L Cannula 10/20 2230 98.5 76 20 100/50 92 Nasal 2.0L Cannula 10/20 1424 98.5 80 20 140/80 94 10/20 1318 Nasal 2.0L Cannula Intake & Output 10/21 1600 10/21 0800 10/21 0000 Intake Total 600 240 Output Total 200 250 325 Balance -200 350 -85 Intake, IV 600 Intake, Oral 240 Number 1 1 2 Bowel Movements Output, Urine 200 250 325 Attending MD Review Statement Attending Statement Attending MD Statement: examined this patient, discuss w/resident/PA/DIVING JUDGE, agreed w/resident/PA/DIVING JUDGE, reviewed EMR data (avail), amended to note Attending Assessment/Plan: Mrs. Monroe was interviewed, examined, and her EMR reviewed. She denies fever, chills, chest pain and shortness of breath. At the time of her examination she is afebrile with stable vital signs. Physical exam shows bilateral fine rales at both bases. Cardiovascular exam reveals regular rate and rhythm with a 3/6 systolic ejection murmur. Lower extremities are notable for edema and stasis changes. They are bilaterally mildly warm to the touch. WBCs are as noted above and cultures are pending. Changes and troponin level are noted. EKG now shows Q waves in leads 3 and aVF. Culture should be followed and antibiotics adjusted accordingly. We await cardiology input but in the meantime we will restart her lisinopril and initiate beta magdy therapy with metoprolol 12.5 mg twice a day. Present maintenance medication should be continued.
[2016-10-21 10:36] LABS: PLATELET COUNT 69 /CUMM (130-400)
[2016-10-21 10:45] VITALS: BP 118/54
--- NOTE | 2016-10-21 15:28 | Cons- Cardiology ---
General Information and HPI Consulting Request Date of Consult: 10/21/16 Requested By: HAILEY VASQUES MD Reason for Consult: Positive troponin History of Present Illness: The patient is an 86-year-old female with history of hypertension, stage IV kidney disease, dementia, chronic venous stasis ulcers, and chronic cellulitis. She is sent to the hospital from her senior care for fever with lethargy and decreased responsiveness. The patient is feeling better now. She denies any recent chest pain, although she does note that she has had chest discomfort with exertion in the past. No current shortness of breath. No diaphoresis. She is found to have sepsis secondary to cellulitis, and is admitted for antibiotic therapy. I am consulted because of a positive troponin. Allergies/Medications Allergies: Coded Allergies: cetirizine (UNKNOWN PER 03/26/16) diazepam (UNKNOWN PER 03/26/16) Home Med List: Acetaminophen 500 MG TABLET 1 TAB PO TID PAIN (Reported) Amoxicillin/Potassium Clav (Augmentin 875-125 Tablet) 875 MG-125 MG TABLET 1 TAB PO BID ANTIBIOTIC, INFECTION Bisacodyl 10 MG SUPP.RECT 10 MG AK PRN IF MOM NOT EFFECTIVE (Reported) Cranberry Extract (Cranberry) 200 MG CAPSULE 1 TAB PO DAILY UTI PREVENTION ( Reported) Duloxetine HCl 60 MG CAPSULE.DR 1 CAP PO DAILY MENTAL HEALTH (Reported) Escitalopram Oxalate (Lexapro) 10 MG TABLET 1 TAB PO DAILY MENTAL HEALTH ( Reported) Fentanyl 1 EACH PATCH.TD72 1 PAT TOP Q72H PAIN (Reported) Furosemide (Lasix) 40 MG TABLET 1 TAB PO BID DIURETIC (Reported) Reason to Stop at ADM: HYPOTENSIVE AND ON FLUIDS Gabapentin 100 MG CAPSULE 3 CAP PO TID NEUROPATHY/PAIN (Reported) Levothyroxine Sodium 75 MCG TABLET 1 TAB PO 0600 THYROID (Reported) Lisinopril 2.5 MG TABLET 1 TAB PO DAILY HTN (Reported) Reason to Stop at ADM: HYPOTENSIVE Lubiprostone (Amitiza) 8 MCG CAPSULE 1 CAP PO DAILY GI (Reported) Mag Hydrox/Al Hydrox/Simeth (Mintox Suspension) 200 MG-200 MG-20 MG/5 ML ORAL.SUSP 20 ML PO Q6PRN PRN GI UPSET (Reported) Magnesium Hydroxide (Milk Of Magnesia) 400 MG/5 ML ORAL.SUSP 30 ML PO PRN CONSTIPATION (Reported) Metoprolol Tartrate 25 MG TABLET 0.5 MG PO BID [employer] Na Phos,M-B/Na Phos,Di-Ba (Fleet Enema) 19 GRAM-7 GRAM/118 ML ENEMA IF DUCOLAX INEFFECTIVE (Reported) Omeprazole 10 MG CAPSULE.DR 1 CAP PO 0600 GI (Reported) Oxycodone HCl 10 MG TABLET 1 TAB PO TID PAIN (Reported) Polyethylene Glycol 3350 (Miralax) 17 GM POWD.PACK 1 PAC PO DAILY GI ( Reported) dissolve in water Spironolactone 25 MG TABLET 12.5 MG PO DAILY DIURETIC (Reported) Reason to Stop at ADM: HYPOTENSIVE Current Medications: Current Medications Sig/Kian Start time Last Medication Dose Route Stop Time Status Admin Acetaminophen 650 MG .STK-MED ONE 10/21 0312 DC PO 10/21 0313 Acetaminophen 500 MG TID 10/20 1000 AC 10/21 PO 0931 Acetaminophen 650 MG Q6P PRN 10/20 0830 AC 10/21 PO 0316 Al Hydroxide/Mg 30 ML Q6P PRN 10/20 0945 AC Hydroxide PO Ampicillin Sodium/ 1,500 MG Q12H 10/20 1000 AC 10/21 Sulbactam Sodium IV 0851 Sodium Chloride 100 ML Aspirin 325 MG ONCE ONE 10/21 0900 DC 10/21 PO 10/21 0901 0902 Bisacodyl 10 MG DAILY PRN 10/20 0945 AC [place] Duloxetine HCl 60 MG DAILY 10/21 1000 AC 10/21 PO 0932 Escitalopram Oxalate 10 MG DAILY 10/21 1000 AC 10/21 PO 0932 Fentanyl Citrate 50 MCG Q72H 10/20 0945 AC TOP Gabapentin 100 MG TID 10/20 1600 AC 10/21 PO 0932 Heparin Sodium 5,000 UNIT Q8 10/20 1400 AC 10/21 (Porcine) SC 1336 Levothyroxine Sodium 0.075 MG 0600 10/21 0600 AC 10/21 PO 0613 Lisinopril 2.5 MG DAILY 10/21 1245 AC 10/21 PO 1441 Lubiprostone 8 MCG DAILY 10/20 1043 AC 10/21 PO 0931 Magnesium Hydroxide 30 ML DAILY PRN 10/20 0945 AC PO Metoprolol Tartrate 12.5 MG BID 10/21 1246 AC 10/21 PO 1442 Morphine Sulfate 2 MG Q6 PRN 10/21 0900 AC IV Nitroglycerin 0.4 MG Q 5 MINUTES X 3 DO.. 10/21 0900 AC SL Omeprazole 20 MG DAILY AC 10/20 0945 AC 10/21 PO 0613 Ondansetron HCl 4 MG Q6 PRN 10/21 0900 AC 10/21 IV 0858 Oxycodone HCl 10 MG Q8 10/21 1400 AC 10/21 PO 1336 Oxycodone HCl 10 MG Q8 10/20 1400 DC 10/21 PO 0618 Oxycodone HCl 5 MG Q6P PRN 10/20 1000 AC 10/21 PO 0931 Patient Medication 1 UNIT ONE NR 10/21 1345 DC Teaching ED 10/21 1400 Polyethylene Glycol 17 GM DAILY 10/20 1000 AC PO Sodium Chloride 1,000 ML Q13H 10/20 0830 AC 10/21 IV 1242 Review of Systems Review of Systems: No rash. No tremor. No diaphoresis. No melena. 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 [facility] Facility Services at Home: Nursing Primary Language: Citizen Of [place] Smoking Status: Never Smoked Living Will? yes Functional Ability ADLs Needs Assist: dressing, eating, toileting, bathing. Ambulation: LIVES AT A NURSING CARE FACILITY IADLs Needs Assist: shopping, housework, finances, food prep, telephone, transportation, medication admin. ECHO Results (as available) Date of last Echo 03/28/16 EF% 65 Exam & Diagnostic Data Vital Signs and I&O Vital Signs Date Time Temp Pulse Resp B/P Pulse O2 O2 Flow FiO2 Ox Delivery Rate 10/21 1442 74 122/64 10/21 1441 72 122/64 10/21 1045 Nasal 2.0L Cannula 10/21 1045 98.3 79 20 118/54 94 Nasal 2.0L Cannula 10/21 0903 98.2 71 20 120/70 97 Room Air 10/21 0800 95 Nasal 2.0L Cannula 10/21 0630 97.5 60 18 112/58 95 Nasal 2.0L Cannula 10/20 2230 98.5 76 20 100/50 92 Nasal 2.0L Cannula Intake & Output 10/21 1600 10/21 0800 10/21 0000 10/20 1600 10/20 0800 10/20 0000 Intake Total 1320 600 240 400 500 Output Total 700 250 325 950 Balance 620 350 -85 -550 500 Intake, IV 600 600 500 Intake, Oral 720 240 400 Number 1 1 2 Bowel Movements Output, Urine 700 250 325 950 Patient 160 lb 130 lb Weight Physical Exam: Gen: The patient is in no acute distress HEENT: Normal nose, ears, and oropharynx. Pupils equal bilaterally. Conjunctiva normal. Neck: Supple with no JVD, no masses, and no thyromegaly Lungs: Clear to auscultation with normal respiratory effort Heart: RRR, S1, S2, 2/6 systolic murmur. 2+ peripheral edema, 2+ pulses in the lower extremities bilaterally Abdomen: Soft, nontender, no masses. No hepatomegaly. No splenomegaly Extremities: No clubbing or cyanosis. Normal muscle strength in the upper and lower extremities Skin: Normal skin turgor with venous stasis changes Neuro: Cranial nerves intact. Sensation intact Psych: Alert and oriented 3 with appropriate affect Labs/Khang Results: Laboratory Tests 10/21 10/21 10/21 1200 0615 0615 Chemistry Sodium (137 - 145 mmol/L) 139 Potassium (3.5 - 5.1 mmol/L) 3.8 Chloride (98 - 107 mmol/L) 103 Carbon Dioxide (22 - 30 mmol/L) 27 Anion Gap (5 - 16) 9 BUN (7 - 17 mg/dL) 25 H Creatinine (0.5 - 1.0 mg/dL) 1.1 H Estimated GFR (>60 ml/min) 47 L BUN/Creatinine Ratio (7 - 25 %) 22.7 Troponin I (< 0.11 ng/ml) 0.11 *H Cancelled 0.12 *H Hematology CBC w Diff NO MAN DIFF REQ WBC (4.8 - 10.8 /CUMM) 7.1 RBC (4.20 - 5.40 /CUMM) 3.99 L Hgb (12.0 - 16.0 G/DL) 9.9 L Hct (37 - 47 %) 30.3 L MCV (81.0 - 99.0 FL) 75.9 L MCH (27.0 - 31.0 PG) 24.9 L RDW (11.5 - 14.5 %) 16.2 H Plt Count (130 - 400 /CUMM) 69 L MPV (7.4 - 10.4 FL) 8.1 Gran % (42.2 - 75.2 %) 83.1 H Lymphocytes % (20.5 - 51.1 %) 11.9 L Monocytes % (1.7 - 9.3 %) 4.1 Eosinophils % (0 - 5 %) 0.8 Basophils % (0.0 - 2.0 %) 0.1 Absolute Granulocytes (1.4 - 6.5 /CUMM) 5.9 Absolute Lymphocytes (1.2 - 3.4 /CUMM) 0.8 L Absolute Monocytes (0.10 - 0.60 /CUMM) 0.3 Absolute Eosinophils (0.0 - 0.7 /CUMM) 0.1 Absolute Basophils (0.0 - 0.2 /CUMM) 0 PUBS MCHC (33.0 - 37.0 G/DL) 32.8 L 10/2015 0409 0322 Chemistry Lactic Acid (0.7 - 2.1 mmol/L) Cancelled 0.9 Urines Urine Color (YEL,AMB,STR) YEL Urine Clarity (CLEAR) CLEAR Urine pH (5.0 - 8.0) 7.0 Ur Specific [place] (1.001 - 1.035) 1.010 Urine Protein (NEG,<30 MG/DL) TRACE H Urine Ketones (NEG) NEG Urine Nitrite (NEG) NEG Urine Bilirubin (NEG) NEG Urine Urobilinogen (0.1 - 1.0 EU/dl) 0.2 Ur Leukocyte Esterase (NEG) NEG Ur Microscopic SEDIMENT EXAMINED Urine RBC (0 - 5 /HPF) 25-50 H Urine WBC (0 - 2 /HPF) 1-3 H Ur Epithelial Cells (NONE,FEW) RARE Urine Hemoglobin (NEG) LARGE H Urine Glucose (N MG/DL) NEG 10/20 0240 Chemistry Sodium (137 - 145 mmol/L) 138 Potassium (3.5 - 5.1 mmol/L) 4.0 Chloride (98 - 107 mmol/L) 99 Carbon Dioxide (22 - 30 mmol/L) 30 Anion Gap (5 - 16) 10 BUN (7 - 17 mg/dL) 29 H Creatinine (0.5 - 1.0 mg/dL) 1.3 H Estimated GFR (>60 ml/min) 39 L BUN/Creatinine Ratio (7 - 25 %) 22.3 Glucose (65 - 99 mg/dL) 128 H Calcium (8.4 - 10.2 mg/dL) 8.2 L Total Bilirubin (0.2 - 1.3 mg/dL) 0.7 AST (14 - 36 U/L) 18 ALT (9 - 52 U/L) 20 Alkaline Phosphatase (<127 U/L) 45 Troponin I (< 0.11 ng/ml) 0.07 Total Protein (6.3 - 8.2 g/dL) 6.7 Albumin (3.5 - 5.0 g/dL) 3.4 L Globulin (1.9 - 4.2 gm/dL) 3.3 Albumin/Globulin Ratio (1.1 - 2.2 %) 1.0 L Hematology CBC w Diff MAN DIFF ORDERED WBC (4.8 - 10.8 /CUMM) 10.9 H RBC (4.20 - 5.40 /CUMM) 4.29 Hgb (12.0 - 16.0 G/DL) 10.6 L Hct (37 - 47 %) 32.5 L MCV (81.0 - 99.0 FL) 75.6 L MCH (27.0 - 31.0 PG) 24.6 L RDW (11.5 - 14.5 %) 16.6 H Plt Count (130 - 400 /CUMM) 91 L MPV (7.4 - 10.4 FL) 7.4 Gran % (42.2 - 75.2 %) 91.9 H Lymphocytes % (20.5 - 51.1 %) 4.7 L Monocytes % (1.7 - 9.3 %) 3.3 Eosinophils % (0 - 5 %) 0 Basophils % (0.0 - 2.0 %) 0.1 Absolute Granulocytes (1.4 - 6.5 /CUMM) 10.0 H Segmented Neutrophils (42.2 - 75.2 %) 82 H Band Neutrophils (0.0 - 5.0 %) 7 H Absolute Lymphocytes (1.2 - 3.4 /CUMM) 0.5 L Lymphocytes (20.5 - 51.1 %) 5 L Monocytes (1.7 - 9.3 %) 6 Absolute Monocytes (0.10 - 0.60 /CUMM) 0.4 Absolute Eosinophils (0.0 - 0.7 /CUMM) 0 Absolute Basophils (0.0 - 0.2 /CUMM) 0 Platelet Estimate (ADEQUATE) DECREASED Poikilocytosis FEW Basophilic Stippling SLIGHT Anisocytosis 1+ Microcytic Cells 1+ Ovalocytes FEW Stomatocytes FEW PUBS MCHC (33.0 - 37.0 G/DL) 32.5 L Diagnostic Data EKG Results EKG tracing is independently reviewed, and reveals normal sinus rhythm at 70, left atrial melena, inferior infarct age undetermined, possible anterior infarct age undetermined CXR Results 1. Left greater than right basilar opacification, consider atelectasis or other consolidation such as pneumonia. 2. Possible mild interstitial edema. Other Results Echocardiogram 03/28/16: Normal size left ventricle. Mild concentric left ventricular hypertrophy. Normal left ventricular ejection fraction visually estimated at greater than 65 %. Mildly elevated LVOT velocity at 1.4 m/s. Normal left ventricular diastolic filling pattern for age. Normal right ventricular size and function. Borderline atrial dilatation. Trace mitral regurgitation. Mild aortic stenosis. Trace tricuspid regurgitation. Mildly dilated IVC. Assessment/Plan Assessment/Plan Assessment: 1. Dementia 2. Hypertension 3. Chronic kidney disease 4. Sepsis secondary to cellulitis 5. Mild troponin elevation with minor EKG changes. Likely demand ischemia. No evidence of acute coronary syndrome at this time. Plan: * Antibiotics as per the medical service * Continue low-dose metoprolol * Continue to monitor troponin. * Repeat EKG tomorrow. Consult Acknowledgment - Thank you for your consult request.
[2016-10-21 16:00] VITALS: BP 122/60
[2016-10-22] VITALS: BP 130/54
[2016-10-22 06:36] LABS: ABSOLUTE BASOPHIL COUNT 0 /CUMM (0.0-0.2); ABSOLUTE EOSINOPHIL COUNT 0 /CUMM (0.0-0.7); ABSOLUTE GRANULOCYTE CT 7.2 /CUMM (1.4-6.5); ABSOLUTE LYMPH COUNT 0.7 /CUMM (1.2-3.4); ABSOLUTE MONOCYTE COUNT 0.4 /CUMM (0.10-0.60); BASOPHIL % 0.1 % (0.0-2.0); EOSINOPHIL % 0.5 % (0-5); GRANULOCYTE % 86.2 % (42.2-75.2); HEMATOCRIT 31.9 % (37-47); MEAN CORPUSCULAR HGB 24.9 PG (27.0-31.0); MEAN CORPUSCULAR HGB CONC 32.4 G/DL (33.0-37.0); MEAN CORPUSCULAR VOLUME 76.6 FL (81.0-99.0); MEAN PLATELET VOLUME 8.2 FL (7.4-10.4); PLATELET COUNT 89 /CUMM (130-400); RBC DISTRIBUTION WIDTH 16.4 % (11.5-14.5); RED BLOOD CELL CT 4.17 /CUMM (4.20-5.40)
[2016-10-22 07:09] LABS: WHITE BLOOD CELL COUNT 8.4 /CUMM (4.8-10.8)
[2016-10-22 08:08] VITALS: BP 140/70
--- NOTE | 2016-10-22 13:00 | PN- Att Addend ---
Attending Addendum Attending Brief Note Mrs. Monroe was interviewed, examined and her EMR was reviewed. Of note is a low-grade temperature to 99.2 with an increase in oxygen requirement as well as mild to moderate tachypnea. Her surveillance culture is growing MRSA as well as 1 of 2 blood cultures with gram-positive cocci and clusters. Her previous chest x-ray is showing mildly increased interstitial markings. We will institute contact precautions and follow her blood culture to tailor her antibiotic regimen. In addition given her pulmonary findings above we should do a follow-up chest x-ray and if indicated restart her diuretic.
--- NOTE | 2016-10-22 13:03 | RADIOLOGY REPORT ---
EXAMINATION: XR CHEST CLINICAL INFORMATION: Sepsis and leukocytosis. Evaluate for pneumonia. COMPARISON: 10/20/2016 TECHNIQUE: PA and lateral views of the chest were obtained. FINDINGS: Interval worsening bilateral patchy pulmonary opacities -- now involving upper lobes -- from pneumonia and/or superimposed septic emboli. Small bilateral pleural effusions. Stable cardiomegaly. Atherosclerotic calcification of the thoracic aorta. Bones appear diffusely osteopenic. IMPRESSION: Interval worsening pulmonary disease. There are patchy bilateral airspace opacities and small pleural effusions.
--- NOTE | 2016-10-22 15:44 | PN- Housestaff ---
Subjective Follow-up For: Sepsis secondary to cellulitis Chronic kidney disease stage IV Subjective: I saw and examined the patient today morning. She is doing much better today, alert and oriented. Review of Systems Constitutional: Reports: see HPI, malaise, weakness. EENTM: Reports: no symptoms. Cardiovascular: Reports: see HPI, edema. Denies: chest pain. Respiratory: Denies: cough, short of breath. Comments: ROS negative except the above. Objective Last 24 Hrs of Vital Signs/I&O Vital Signs Date Time Temp Pulse Resp B/P Pulse O2 O2 Flow FiO2 Ox Delivery Rate 10/22 1600 97.6 84 18 142/70 93 Nasal 5.0L Cannula 10/22 1600 95 Nasal 5.0L Cannula 10/22 0808 97.0 70 20 140/70 93 Nasal 5.0L Cannula 10/22 0800 94 Nasal 5.0L Cannula 10/22 0000 94 Nasal 4.0L Cannula 10/22 0000 99.2 77 26 130/54 94 Nasal 4.0L Cannula Intake & Output 10/22 1600 10/22 0800 10/22 0000 Intake Total 1000 120 682 Output Total 550 200 200 Balance 450 -80 482 Intake, IV 600 562 Intake, Oral 400 120 120 Number 0 0 Bowel Movements Output, Urine 550 200 200 Physical Exam General Appearance: Alert, Oriented X3, No Acute Distress Skin: No Rashes HEENT: Atraumatic, PERRLA Neck: Supple, No JVD Cardiovascular: Regular Rate, Normal S1, Normal S2, systolic murmur Lungs: Clear to Auscultation Abdomen: Normal Bowel Sounds, Soft, No Tenderness Neurological: Normal Speech Extremities: No Clubbing, No Cyanosis Vascular: Pulses Symmetrical Current Medications: Current Medications Sig/Kian Start time Last Medication Dose Route Stop Time Status Admin Acetaminophen 500 MG TID 10/20 1000 AC 10/22 PO 1529 Acetaminophen 650 MG Q6P PRN 10/20 0830 AC 10/21 PO 0316 Al Hydroxide/Mg 30 ML Q6P PRN 10/20 0945 AC Hydroxide PO Ampicillin Sodium/ 1,500 MG Q12H 10/20 1000 AC 10/22 Sulbactam Sodium IV 1000 Sodium Chloride 100 ML Bisacodyl 10 MG DAILY PRN 10/20 0945 AC OK Duloxetine HCl 60 MG DAILY 10/21 1000 AC 10/22 PO 1006 Escitalopram Oxalate 10 MG DAILY 10/21 1000 AC 10/22 PO 1005 Fentanyl Citrate 50 MCG Q72H 10/20 0945 AC TOP Furosemide 40 MG 7:30 AM, & 4:30 PM 10/23 0730 AC PO Furosemide 40 MG ONCE ONE 10/22 1430 DC 10/22 IV 10/22 1431 1513 Gabapentin 100 MG TID 10/20 1600 AC 10/22 PO 1530 Heparin Sodium 5,000 UNIT Q8 10/20 1400 AC 10/22 (Porcine) SC 1348 Levothyroxine Sodium 0.075 MG 0600 10/21 0600 AC 10/22 PO 0541 Lisinopril 2.5 MG DAILY 10/21 1245 AC 10/22 PO 1529 Lubiprostone 8 MCG DAILY 10/20 1043 AC 10/22 PO 1530 Magnesium Hydroxide 30 ML DAILY PRN 10/20 0945 PO Metoprolol Tartrate 12.5 MG BID 10/21 1246 AC 10/22 PO 1100 Morphine Sulfate 2 MG Q6 PRN 10/21 0900 AC IV Nitroglycerin 0.4 MG Q 5 MINUTES X 3 DO.. 10/21 0900 AC SL Omeprazole 20 MG DAILY AC 10/20 0945 AC 10/22 PO 0541 Ondansetron HCl 4 MG Q6 PRN 10/21 0900 AC 10/21 IV 1802 Oxycodone HCl 10 MG Q8 10/21 1400 AC 10/22 PO 1345 Oxycodone HCl 5 MG Q6P PRN 10/20 1000 AC 10/22 PO 0828 Polyethylene Glycol 17 GM DAILY 10/20 1000 AC 10/22 PO 1006 Sodium Chloride 1,000 ML Q13H 10/20 0830 AC 10/22 IV 1513 Last 24 Hrs of Lab/Khang Results Last 24 Hrs of Labs/Mics: Laboratory Tests 10/22/16 0600: Sodium Cancelled, Potassium Cancelled, Chloride Cancelled, Carbon Dioxide Cancelled, Anion Gap Cancelled, BUN Cancelled, Creatinine Cancelled, BUN/ Creatinine Ratio Cancelled, CBC w Diff Cancelled, WBC Cancelled, RBC Cancelled, Hgb Cancelled, Hct Cancelled, MCV Cancelled, MCH Cancelled, RDW Cancelled, Plt Count Cancelled, MPV Cancelled, PUBS MCHC Cancelled 10/22/16 0514: Anion Gap 13, Estimated GFR 43 L, BUN/Creatinine Ratio 17.5, Phosphorus 3.1, Magnesium 2.1, CBC w Diff NO MAN DIFF REQ, RBC 4.17 L, MCV 76.6 L, MCH 24.9 L , RDW 16.4 H, MPV 8.2, Gran % 86.2 H, Lymphocytes % 8.8 L, Monocytes % 4.4, Eosinophils % 0.5, Basophils % 0.1, Absolute Granulocytes 7.2 H, Absolute Lymphocytes 0.7 L, Absolute Monocytes 0.4, Absolute Eosinophils 0, Absolute Basophils 0, PUBS MCHC 32.4 L Assessment/Plan Assessment: 86-year-old woman with past medical history of hypertension, dementia, stage IV kidney disease, episodes of GI bleed, chronic venous stasis ulcers, chronic cellulitis, thick bark-like legs and feet, who presented to ED from [facility] after she was found to be very lethargic, unresponsive and fever. The patient has advanced dementia and is unable to provide any history. Most of the history was taken from the , ED records and Dr. Madsen, who knows the patient well. The patient was supposed to be DO NOT HOSPITALIZE but she was sent to the ED and was admited due to sepsis secondary to cellulitis. On admission he was found to have a BP of 114/55 that decraesed to 81/47 but responded to fluids and came up to 100/50 after one bag. Temp of 100.9, but this was post Tyenol that was given at the facility, HR of 123, decreased to 75 after hydration, RR 18, and oxygen saturation of 99 on 2 liters of oxygen. The CHEST X ray showed eft greater than right basilar opacification, consider atelectasis or other consolidation such as pneumonia. [id number], LEFT: Diffuse subcutaneous edema about the left lower extremity concerning for cellulitis. No subcutaneous gas demonstrated. WC 10.1, bands of 7, BUN/Cr 29/1.3, Glucose 128 Assesment and Plan: To general med Vitals every shift 1. Sepsis secondary to cellulitis - Although the patient is a DNI DNR and do not hospitalize, she has been admitted for sepsis due to cellulitis. It is important to note that the patient has history of chronic cellulitis, chronic venous stasis ulcers, and bark-like thick skin. * Cultures positive for gram positive cocci. 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 * Patient is on IV Unasyn * Wound consult appreciated * Leg elevation * Compression stockings * ?? ECHO to rule out endocarditis. * May need prolonged antibiotics in view of recurrent cellulitis. 2. Chronic kidney disease stage IV * At baseline Will monitor * Avoid nephrotoxic drugs 3. History of chronic pain and opioid dependence * As she came in with lethargy, although her mental status is different and she is very much alert now, will avoid overdose of narcotics * We'll continue her fentanyl patch to avoid withdrawal, 50 g every 72 hours, last [place] 10/19/2016 could attribute and from [facility] * Recently, on 09/11/16, dose of Roxicodone was decreased from 15 mg day to 10 mg daily, will continue with that for now. Will hold or decrease dose further if the patient becomes more lethargic * Patient takes gabapentin 300 mg 3 times a day however because of her kidney distally it is advisable that her dose should be lowered. The pharmacy she will be started on 100 mg 3 times a day. * Keeping in mind the patient is DNI DNR and was a do not rehospitalize, a few the aim is for her to be more comfortable and she is drifting more towards comfort care measures then we may increase the dose of gabapentin keeping in mind that comfort measures and pain control would be priorities for Dr. greene and keep the chronic kidney disease in mind. 4. Continue with Lexapro, Cymbalta, levothyroxine, omeprazole 5. Constipation: * The patient is on MiraLAX, mag ox, and images are, that should be continued while she is in the hospital 6. history of hypertension * on lisinopri 2.5 mg daily, Lasix 40 mg twice a day and Aldactone 12.5 mg by mouth daily. Because she came in with hypotension, will hold off on all these medications for now. Keep hematocrit the respirator status and blood pressure and restart as needed. * EF of 65% on last echocardiogram in March 2016 7. Pain pathway with Tylenol as mild, oxycodone as moderate and fentanyl as severe 8. Regular diet with thin liquids (this was confirmed with Marcela, the patient' s nurse at [facility]) 9. Subcutaneous heparin for DVT prophylaxis 10. An episode of chest pain, nausea and elevated troponins We have to rule out ACS. Patient needs to be transferred to telemetry floor for closer monitoring. Patient was discussed with Dr. Berry and he will see the patient today. Dr. Phillips was also informed. We will trend troponins and EKGs. 11. DNI/DNR * The patient was actually do not rehospitalize however she was sent to the hospital for fever and altered mental status. I tried calling the power of securities attorney and all the numbers provided as mentioned in HPI however there was no response. Marcela, the nurse that he whacked said that she got in touch with Meli Monteiro, the power of securities attorney, and that she is aware her mother is in the hospital. * It is important to get in touch with her again to discuss further goals of care and the extent of medical intervention duing this hospital admission, such as central line and transferred to tele. Problem List: 1. Cellulitis 2. Hypertension 3. CKD (chronic kidney disease) 4. Sepsis 5. Elevated troponin Pain Ratin Pain Location: Lower extremity cellulitis Pain Goal: Pain 4 or less Pain Plan: tyleonol PRN Tomorrow's Labs & Rationales: cbc and bep
[2016-10-22 16:00] VITALS: BP 142/70
--- NOTE | 2016-10-22 20:00 | PN- Cardiology ---
Subjective Subjective: The patient denies any chest pain or shortness of breath. No palpitations. No diaphoresis. She is noted to have a blood culture which is positive for gram- positive cocci. Objective Vital Signs and I&Os Vital Signs Date Time Temp Pulse Resp B/P Pulse O2 O2 Flow FiO2 Ox Delivery Rate 10/22 1600 97.6 84 18 142/70 93 Nasal 5.0L Cannula 10/22 1600 95 Nasal 5.0L Cannula 10/22 0808 97.0 70 20 140/70 93 Nasal 5.0L Cannula 10/22 08 94 Nasal 5.0L Cannula 10/22 0000 94 Nasal 4.0L Cannula 10/22 0000 99.2 77 26 130/54 94 Nasal 4.0L Cannula 10/21 2108 77 30 130/58 Intake & Output 10/22 1600 10/22 0810/22 0000 10/21 1600 10/21 0800 10/21 0000 Intake Total 1000 918 742 8630 600 240 Output Total 550 200 200 700 250 325 Balance 450 -80 482 620 350 -85 Intake, IV 600 562 600 600 Intake, Oral 400 120 120 720 240 Number 0 0 1 1 2 Bowel Movements Output, Urine 550 200 200 700 250 325 Physical Exam: Gen: The patient is in no acute distress HEENT: Normal nose, ears, and oropharynx. Pupils equal bilaterally. Conjunctiva normal. Neck: Supple with no JVD, no masses, and no thyromegaly Lungs: Clear to auscultation with normal respiratory effort Heart: RRR, S1, S2, 2/6 systolic murmur. 2+ peripheral edema, 2+ pulses in the lower extremities bilaterally Abdomen: Soft, nontender, no masses. No hepatomegaly. No splenomegaly Extremities: No clubbing or cyanosis. Normal muscle strength in the upper and lower extremities Skin: Normal skin turgor with venous stasis changes Neuro: Cranial nerves intact. Sensation intact Current Medications: Current Medications Sig/Kian Start time Last Medication Dose Route Stop Time Status Admin Acetaminophen 500 MG TID 10/20 1000 AC 10/22 PO 1529 Acetaminophen 650 MG Q6P PRN 10/20 0830 AC 10/21 PO 0316 Al Hydroxide/Mg 30 ML Q6P PRN 10/20 0945 AC Hydroxide PO Ampicillin Sodium/ 1,500 MG Q12H 10/20 1000 AC 10/22 Sulbactam Sodium IV 1000 Sodium Chloride 100 ML Bisacodyl 10 MG DAILY PRN 10/20 0945 AC [place] Duloxetine HCl 60 MG DAILY 10/21 1000 AC 10/22 PO 1006 Escitalopram Oxalate 10 MG DAILY 10/21 1000 AC 10/22 PO 1005 Fentanyl Citrate 50 MCG Q72H 10/20 0945 AC TOP Furosemide 40 MG 7:30 AM, & 4:30 PM 10/23 0730 AC PO Furosemide 40 MG ONCE ONE 10/22 1430 DC 10/22 IV 10/22 1431 1513 Gabapentin 100 MG TID 10/20 1600 AC 10/22 PO 1530 Heparin Sodium 5,000 UNIT Q8 10/20 1400 AC 10/22 (Porcine) SC 1348 Levothyroxine Sodium 0.075 MG 0600 10/21 0600 AC 10/22 PO 0541 Lisinopril 2.5 MG DAILY 10/21 1245 AC 10/22 PO 1529 Lubiprostone 8 MCG DAILY 10/20 1043 AC 10/22 PO 1530 Magnesium Hydroxide 30 ML DAILY PRN 10/20 0945 AC PO Metoprolol Tartrate 12.5 MG BID 10/21 1246 AC 10/22 PO 1100 Morphine Sulfate 2 MG Q6 PRN 10/21 0900 AC IV Nitroglycerin 0.4 MG Q 5 MINUTES X 3 DO.. 10/21 0900 AC SL Omeprazole 20 MG DAILY AC 10/20 0945 AC 10/22 PO 0541 Ondansetron HCl 4 MG Q6 PRN 10/21 0900 AC 10/21 IV 1802 Oxycodone HCl 10 MG Q8 10/21 1400 AC 10/22 PO 1345 Oxycodone HCl 5 MG Q6P PRN 10/20 1000 AC 10/22 PO 0828 Polyethylene Glycol 17 GM DAILY 10/20 1000 AC 10/22 PO 1006 Sodium Chloride 1,000 ML Q13H 10/20 0830 AC 10/22 IV 1513 Results Last 48 Hrs of Labs/Mics: Laboratory Tests 10/22/16 0600: Sodium Cancelled, Potassium Cancelled, Chloride Cancelled, Carbon Dioxide Cancelled, Anion Gap Cancelled, BUN Cancelled, Creatinine Cancelled, BUN/ Creatinine Ratio Cancelled, CBC w Diff Cancelled, WBC Cancelled, RBC Cancelled, Hgb Cancelled, Hct Cancelled, MCV Cancelled, MCH Cancelled, RDW Cancelled, Plt Count Cancelled, MPV Cancelled, PUBS MCHC Cancelled 10/22/16 0514: Anion Gap 13, Estimated GFR 43 L, BUN/Creatinine Ratio 17.5, Phosphorus 3.1, Magnesium 2.1, CBC w Diff NO MAN DIFF REQ, RBC 4.17 L, MCV 76.6 L, MCH 24.9 L , RDW 16.4 H, MPV 8.2, Gran % 86.2 H, Lymphocytes % 8.8 L, Monocytes % 4.4, Eosinophils % 0.5, Basophils % 0.1, Absolute Granulocytes 7.2 H, Absolute Lymphocytes 0.7 L, Absolute Monocytes 0.4, Absolute Eosinophils 0, Absolute Basophils 0, PUBS MCHC 32.4 L 10/21/16 1758: Troponin I 0.10 10/21/16 1200: Troponin I 0.11 *H 10/21/16 0615: Troponin I Cancelled 10/21/16 0615: Anion Gap 9, Estimated GFR 47 L, BUN/Creatinine Ratio 22.7, Troponin I 0.12 *H, CBC w Diff NO MAN DIFF REQ, RBC 3.99 L, MCV 75.9 L, MCH 24.9 L, RDW 16.2 H, MPV 8.1, Gran % 83.1 H, Lymphocytes % 11.9 L, Monocytes % 4.1, Eosinophils % 0.8, Basophils % 0.1, Absolute Granulocytes 5.9, Absolute Lymphocytes 0.8 L, Absolute Monocytes 0.3, Absolute Eosinophils 0.1, Absolute Basophils 0, PUBS MCHC 32.8 L Microbiology 10/21 1016 UPPER RESP: Surveillance Culture - COMP METH RESIST STAPH AUREUS Assessment/Plan Assessment/Plan Assessment: 1. Dementia 2. Hypertension 3. Chronic kidney disease 4. Sepsis secondary to cellulitis 5. Mild troponin elevation with minor EKG changes. Likely demand ischemia. No evidence of acute coronary syndrome at this time. 6. Blood culture positive for gram-positive cocci Plan: * Antibiotics as per the medical service * Further dilatation of positive blood culture is pending. * Continue low-dose metoprolol Continue telemetry? Yes
[2016-10-22 23:00] VITALS: BP 130/58
[2016-10-23 07:54] LABS: ABSOLUTE BASOPHIL COUNT 0 /CUMM (0.0-0.2); ABSOLUTE EOSINOPHIL COUNT 0.1 /CUMM (0.0-0.7); ABSOLUTE GRANULOCYTE CT 3.4 /CUMM (1.4-6.5); ABSOLUTE LYMPH COUNT 0.9 /CUMM (1.2-3.4); ABSOLUTE MONOCYTE COUNT 0.4 /CUMM (0.10-0.60); BASOPHIL % 0.3 % (0.0-2.0); EOSINOPHIL % 1.2 % (0-5); GRANULOCYTE % 70.9 % (42.2-75.2); MEAN CORPUSCULAR HGB 24.7 PG (27.0-31.0); MEAN CORPUSCULAR HGB CONC 32.7 G/DL (33.0-37.0); MEAN CORPUSCULAR VOLUME 75.7 FL (81.0-99.0); MEAN PLATELET VOLUME 8.1 FL (7.4-10.4); RBC DISTRIBUTION WIDTH 16.1 % (11.5-14.5); RED BLOOD CELL CT 3.49 /CUMM (4.20-5.40); WHITE BLOOD CELL COUNT 4.7 /CUMM (4.8-10.8)
[2016-10-23 09:01] VITALS: BP 118/58
--- NOTE | 2016-10-23 09:11 | PN- Att Addend ---
Attending Addendum Attending Brief Note Attending note. Patient feels a lot better she is also looks better, she has no complaints today her leg pain and swelling is markedly decreased. Vital signs blood pressure 130/58 heart rate is 72 respirations are 18 temperature is 98.0 O2 sat is 97% On examination patient is awake alert oriented 3 S1-S2 is normal Lungs are good by basilar crackles. With diminished breath sound both bases. Abdomen is soft nontender bowel sounds are present Both lower 70 shows chronic skin changes. Labs sodium 1:30 potassium 3.5 chloride 99 bicarbonate is 30 [place] is 16 creatinine 1.1 Today shows small the atelectasis at bases abdomen is atelectasis with small effusions. Blood cultures were +1 of them of the 2 cultures were positive history of MRSA. Assessment the cellulitis of the leg. With the patient on IV Unasyn. Plan #1 is switched to by mouth patient to by mouth Augmentin #21 other cultures is positive most like most likely contaminant. #3 bibasilar atelectasis, basal patient out of bed to chair incentive spirometry. Await identification of further bacteria and for a patient's cultures are stable discharge the [facility] on by mouth Augmentin.
[2016-10-23] MEDS ORDERED: AUGMENTIN 500-1 EACH PO (09:28)
[2016-10-23] MEDS ORDERED: TOPROL XL25 M1 PO (09:29)
[2016-10-23] MEDS ORDERED: METOPROLOL TART25 M1 PO (09:30)
--- NOTE | 2016-10-23 09:38 | Patient Discharge Instructions ---
Discharge Instructions General Discharge Information You were seen/treated for: Sepsis secondary to left leg cellulitis Demand ischemia Watch for these problems: Fever or chills Increasing pain in the infected area Worsening redness or swelling Pus or drainage from the infected area Other wound care: Please elevate your legs and keep them moisturized as much as possible. Wear compression stockings to improve blood flow in your legs. Special Instructions: Please see your primary care physician Dr. Madsen within one week of discharge. Please follow up with regional facilities manager Dr. Berry for your heart within one week of discharge. [facility] within two weeks of discharge. Diet Continue normal diet: Yes Recommended Diet: Regular Activity Activity Self Limited: Yes Additional ACTIVITY Info: As tolerated with assistance Acute Coronary Syndrome Inclusion Criteria At DC or during hospital stay patient has or had the following: ACS DIAGNOSIS No Discharge Core Measures Meds if any: Prescribed or Continued at Discharge Meds if any: NOT Prescribed or Continued at Discharge Congestive Heart Failure Inclusion Criteria At DC or during hospital stay patient has or had the following: CHF DIAGNOSIS No Discharge Core Measures Meds if any: Prescribed or Continued at Discharge Meds if any: NOT Prescribed or Continued at Discharge Cerebrovascular accident Inclusion Criteria At DC or during hospital stay patient has or had the following: CVA/TIA Diagnosis No Discharge Core Measures Meds if any: Prescribed or Continued at Discharge Meds if any: NOT Prescribed or Continued at Discharge Venous thromboembolism Inclusion Criteria VTE Diagnosis No VTE Type NONE VTE Confirmed by (Test) NONE Discharge Core Measures - Per Current guidelines, there needs to be overlap - treatment for the first 5 days of Warfarin therapy. - If discharged on Warfarin prior to 5 days of - overlap therapy, the patient will need to be - assessed for post discharge needs including - *Post discharge parental anticoagulation - *Warfarin and/or parental anticoagulation education - *Follow up date to check INR post discharge At least 5 days overlap therapy as Inpatient No Meds if any: Prescribed or Continued at Discharge Note: Overlap Therapy is Warfarin and Anticoagulant Meds if any: NOT Prescribed or Continued at Discharge
[2016-10-23] MEDS ORDERED: AUGMENTIN 875-1 EACH PO (09:43)
[2016-10-23 09:51] LABS: HEMATOCRIT 26.4 % (37-47)
[2016-10-23 09:52] LABS: PLATELET COUNT 75 /CUMM (130-400)
--- NOTE | 2016-10-23 10:48 | Discharge Summary ---
Visit Information Visit Dates Admission Date: 10/20/16 Discharge Date: 10/23/16 Hospital Course Course Attending Physician: HAILEY VASQUES MD Primary Care Physician: HAILEY VASQUES MD Consulting Request: Consulting Specialty: Cardiology Consulting Physician: Jarred Berry MD Reason for Consult: Positive troponin Hospital Course: Ms Monroe is a 86 y/o F with PMHx of dementia, HTN, CKD stage IV and chronic venous insufficiency who was BIBA from [facility] after found to be febrile, lethargic and unresponsive. On initial presentation, patient was febrile with Tmax 100.9, tachycardic to 123 and hypotensive to 81/47 , which improved with fluid resuscitation, and saturating at 95% on 2 L NC. Examination of bilateral lower extremities showed chronic edema and venous stasis changes, left worse than right. Labs revealed WBC 10.9 and 7% bands, H/H 10.6/32.5, platelets 91 and BUN/Cr 29/1.3. Urinalysis was negative. CXR was without clear evidence of infection. X-Ray of left tibia/fibula showed diffuse subcutaneous edema involving the left lower extremity concerning for cellulitis and no subcutaneous gas. Patient was admitted for sepsis secondary to left leg cellulitis. Below are the issues that were actively addressed during current admission: #Sepsis secondary to cellulitis of the left leg: Patient met the criteria for severe sepsis on admission in the presence of fever, tachycardia and hypotension. Patient was initially given 1 dose each of IV azithromycin and ceftriaxone and later switched to Unasyn which he received for 3 days (10/20-10/23 ) with improvement of symptoms including mental status, leg pain and swelling. Sepsis resolved; patient defervesced and leukocytosis improved. Patient received IV fluids with improvement of creatinine to 1.1 on day of discharge. One out of two sets of blood cultures from admission (10/20) grew diptheroids which was most likely a contaminant. Blood cultures were repeated the following day (10/21 ), however only one set of cultures could be drawn which grew MRSA. Wound care team was consulted who were unable to detect open wounds on patient's legs but felt that she could have small areas as skin breakdown as portals of entry. * Patient was discharged on 5-day course of Augmentin 875 mg PO BID for a total of 8 days of antibiotics. * Patient was instructed to elevate her legs, keep them moisturized and wear compression stockings according to recommendations from the wound care team. #Demand ischemia: Patient had a mild elevation in her troponins to 0.12, but the troponin curve remained flat and serial EKGs showed normal sinus rhythm and only minor nonspecific ST-T changes. Patient was started on metoprolol 12.5 mg PO BID. Help Aid Dr. Berry was consulted who felt that this represented demand ischemia and also recommended continuing the low-dose metoprolol. * Patient was given outpatient referral for Dr. Berry. * Metoprolol 12.5 mg PO BID was added to discharge medications. Allergies: Coded Allergies: cetirizine (UNKNOWN PER 03/26/16) diazepam (UNKNOWN PER 03/26/16) Disposition Summary Disposition Principal Diagnosis: Sepsis secondary to left leg cellulitis Additional Diagnosis: Demand ischemia Discharge Disposition: SNF Discharge Instructions General Discharge Information Code Status: Do Not Resucitate/Intubat Patient's Diet: Regular Patient's Activity: As tolerated with assistance Follow-Up Instructions/Appts: Please elevate your legs and keep them moisturized as much as possible. Wear compression stockings to improve blood flow in your legs. Please see your primary care physician Dr. Vasques within one week of discharge. Please follow up with supervisor mold construction Dr. Berry for your heart within one week of discharge. Please [facility] within two weeks of discharge. Medications at Discharge Discharge Medications: Stop taking the following medications: Oxycodone HCl (Roxicodone) 15 MG TABLET ORAL THREE TIMES DAILY Continue taking these medications: Levothyroxine Sodium (Levothyroxine Sodium) 75 MCG TABLET 1 Tablet ORAL 0600 Qty = 14 Comments: GIVEN 10/23/16 @ 0617 Omeprazole (Omeprazole) 10 MG CAPSULE. 1 Capsule ORAL 0600 Qty = 30 Comments: GIVEN 10/23/16 @ 616 Polyethylene Glycol 3350 (Miralax) 17 GM POWD.PACK 1 Packet ORAL DAILY Instructions: dissolve in water Comments: GIVEN 10/23/16 @ 0919 Duloxetine HCl (Duloxetine HCl) 60 MG CAPSULE. 1 Capsule ORAL DAILY Comments: GIVEN 10/23/16 @ 18 Lubiprostone (Amitiza) 8 MCG CAPSULE 1 Capsule ORAL DAILY Comments: GIVEN 10/23/16 @ 0918 Lisinopril (Lisinopril) 2.5 MG TABLET 1 Tablet ORAL DAILY Instructions: Reason to Stop at ADM: HYPOTENSIVE Comments: GIVEN 10/23/16 @ 0918 Escitalopram Oxalate (Lexapro) 10 MG TABLET 1 Tablet ORAL DAILY Comments: GIVEN 10/23/16 @ 0918 Spironolactone (Spironolactone) 25 MG TABLET 12.5 Milligram ORAL DAILY Instructions: Reason to Stop at ADM: HYPOTENSIVE Comments: NOT GIVEN Furosemide (Lasix) 40 MG TABLET 1 Tablet ORAL TWICE DAILY Instructions: Reason to Stop at ADM: HYPOTENSIVE AND ON FLUIDS Comments: GIVEN 10/23/16 @ 0639 Acetaminophen (Acetaminophen) 500 MG TABLET 1 Tablet ORAL THREE TIMES DAILY Comments: GIVEN 10/23/16 @ 0918 Fentanyl (Fentanyl) 1 EACH PATCH.TD72 1 Patch On the skin Q72H Qty = 10 Comments: GIVEN 10/23/16 @ 0919 Gabapentin (Gabapentin) 100 MG CAPSULE 3 Capsule ORAL THREE TIMES DAILY Qty = 60 Comments: GIVEN 10/23/16 @ 0918 Bisacodyl (Bisacodyl) 10 MG SUPP.RECT 10 Milligram RECTALLY as needed for IF MOM NOT EFFECTIVE Comments: NOT GIVEN Na Phos,M-B/Na Phos,Di-Ba (Fleet Enema) 19 GRAM-7 GRAM/118 ML ENEMA RECTALLY as needed for IF DUCOLAX INEFFECTIVE Comments: NOT GIVEN Magnesium Hydroxide (Milk Of Magnesia) 400 MG/5 ML ORAL.SUSP 30 Milliliters ORAL as needed for CONSTIPATION Mag Hydrox/Al Hydrox/Simeth (Mintox Suspension) 200 MG-200 MG-20 MG/5 ML ORAL.SUSP 20 Milliliters ORAL EVERY 6 HOURS NEEDED as needed for GI UPSET Comments: NOT GIVEN Oxycodone HCl (Oxycodone HCl) 10 MG TABLET 1 Tablet ORAL THREE TIMES DAILY Comments: GIVEN 10/23/16 @ 0617 Cranberry Extract (Cranberry) 200 MG CAPSULE 1 Tablet ORAL DAILY Comments: NOT GIVEN Start taking the following new medications: Metoprolol Tartrate (Metoprolol Tartrate) 25 MG TABLET 0.5 Milligram ORAL TWICE DAILY Days = 30 No Refills Comments: GIVEN 10/23/16 @ 0918 Amoxicillin/Potassium Clav (Augmentin 875-125 Tablet) 875 MG-125 MG TABLET 1 Tablet ORAL TWICE DAILY Qty = 10 No Refills Comments: NOT GIVEN Copies To: DAVID WYNN,RAMÓN Iraheta; CAPRICE WYNN,HAILEY Edge; SEVERO WYNN,JARRED
[2016-10-23 11:07] VITALS: BP 118/58
== END 2016-10-23 12:15 | DRG 872 ==
LOC: ERH 02:20 → 2NA 03:33 → ERHI 03:33 → CRI 03:33 → 1NO 03:33 → 2NA 05:39 → CRI 10-21 09:54 → 1NO 10-22 15:46
PROVIDERS: Emergency Medicine; Internal Medicine; Internal Medicine Interventional Cardiology; ADMIT Internal Medicine
DX: A41.9 Sepsis, unspecified organism (principal); N18.4 Chronic kidney disease, stage 4 (severe); D69.6 Thrombocytopenia, unspecified; I24.8 Other forms of acute ischemic heart disease; I13.0 Hypertensive heart and chronic kidney disease with heart failure and stage 1 through stage 4 chronic kidney disease, or unspecified chronic kidney disease; I50.9 Heart failure, unspecified; F03.90 Unspecified dementia, unspecified severity, without behavioral disturbance, psychotic disturbance, mood disturbance, and anxiety; L03.115 Cellulitis of right lower limb; F11.20 Opioid dependence, uncomplicated; L03.116 Cellulitis of left lower limb; E78.5 Hyperlipidemia, unspecified; I87.8 Other specified disorders of veins; E03.9 Hypothyroidism, unspecified; I89.0 Lymphedema, not elsewhere classified
CPT/HCPCS: 1NP; 2NASP; CCU; 36415; 73590-LT; 81001; 82436; 87040; 87071; 90662; 93005; 93010; 96374; 96375; J0456; J0696; J1644; J1940; J2405; J7040

== ENCOUNTER 2018-05-06 16:24 | Inpatient (IN) | payer OTHER, MEDICARE ==
[~2018-05-06] VITALS: Ht 162.6 cm; Wt 68.6 kg
[~2018-05-06 16:24] MED LIST changes: +AUGMENTIN 500-1 EACH PO; +AUGMENTIN 875-1 EACH PO; +BISACODYL10 M1 PR; +CRANBERRY200 MG PO; +DURAGESIC1 EACH TD; -FENTANYL1 EAC7 TOP; +FLEET ENEMA133 ML PR; +METOPROLOL TART25 M1 PO; +MILK OF MA400 MG/52 PO; +MINTOX SUSPENS355 ML PO; +OXYCODONE HCL10 M2 PO; +TOPROL XL25 M1 PO
--- NOTE | 2018-05-06 16:48 | ED GENERAL ADULT ---
History of Present Illness General Chief Complaint: Altered Mental Status Stated Complaint: BIBA,AMS Source: EMS Exam Limitations: confusion, dementia, poor historian Allergies Coded Allergies: cetirizine (UNKNOWN PER 03/26/16) diazepam (UNKNOWN PER 03/26/16) Reconcile Medications Acetaminophen 500 MG TABLET 1 TAB PO TID PAIN (Reported) Bisacodyl 10 MG SUPP.RECT 10 MG MA PRN IF MOM NOT EFFECTIVE (Reported) Cranberry Extract (Cranberry) 200 MG CAPSULE 1 TAB PO DAILY UTI PREVENTION ( Reported) Duloxetine HCl 60 MG CAPSULE.DR 1 CAP PO DAILY MENTAL HEALTH (Reported) Escitalopram Oxalate (Lexapro) 10 MG TABLET 1 TAB PO DAILY MENTAL HEALTH ( Reported) Fentanyl 1 EACH PATCH.TD72 1 PAT TOP Q72H PAIN (Reported) Furosemide (Lasix) 40 MG TABLET 1 TAB PO BID DIURETIC (Reported) Reason to Stop at ADM: HYPOTENSIVE AND ON FLUIDS Gabapentin 100 MG CAPSULE 3 CAP PO TID NEUROPATHY/PAIN (Reported) Levothyroxine Sodium 75 MCG TABLET 1 TAB PO 0600 THYROID (Reported) Lisinopril 2.5 MG TABLET 1 TAB PO DAILY HTN (Reported) Reason to Stop at ADM: HYPOTENSIVE Lubiprostone (Amitiza) 8 MCG CAPSULE 1 CAP PO DAILY GI (Reported) Mag Hydrox/Al Hydrox/Simeth (Mintox Suspension) 200 MG-200 MG-20 MG/5 ML ORAL.SUSP 20 ML PO Q6PRN PRN GI UPSET (Reported) Magnesium Hydroxide (Milk Of Magnesia) 400 MG/5 ML ORAL.SUSP 30 ML PO PRN CONSTIPATION (Reported) Metoprolol Tartrate 25 MG TABLET 0.5 MG PO BID [facility] Na Phos,M-B/Na Phos,Di-Ba (Fleet Enema) 19 GRAM-7 GRAM/118 ML ENEMA IF DUCOLAX INEFFECTIVE (Reported) Omeprazole 10 MG CAPSULE.DR 1 CAP PO 0600 GI (Reported) Oxycodone HCl 10 MG TABLET 1 TAB PO TID PAIN (Reported) Polyethylene Glycol 3350 (Miralax) 17 GM POWD.PACK 1 PAC PO DAILY GI ( Reported) dissolve in water Spironolactone 25 MG TABLET 12.5 MG PO DAILY DIURETIC (Reported) Reason to Stop at ADM: HYPOTENSIVE Triage Note: PT BIBA FROM [facility] WITH C/O AMS AND HYPOTENSION. PER EMS, PT WAS RECENTLY TREATED AT ANOTHER ACUTE FACILITY FOR A UTI AND WAS DC'd. EMS REPORTED TO EMS THAT PT IS NOW EXHIBITING SIMILAR SX PRIOR TO PREVIOUS ILLNESS. PT ARRIVES LETHARGIC AND MINIMALLY RESPONSIVE, HYPOTENSIVE WITH SBP IN 80's. PLACED ON TELEMETRY WITH NSR IN 70's. (Carlita Bardales) Vital Signs & Intake/Output Vital Signs & Intake/Output Vital Signs Date Time Temp Pulse Resp B/P B/P Pulse O2 O2 Flow FiO2 Mean Ox Delivery Rate 05/06 2245 69 116/57 05/06 2114 79/49 05/06 1839 98.7 67 16 93/53 95 Nasal 2.0L Cannula 05/06 1806 75 85/56 05/06 1805 95 Nasal 2.0L Cannula 05/06 1635 99.1 70 20 80/47 95 Nasal 2.0L Cannula (Balaji WYNN,Inder Iraheta) Past History Travel History Traveled to [place] past 21 day No Medical History Neurological: dementia, NEUROPATHY EENT: NONE Cardiovascular: CHF, hypertension, hyperlipidemia Respiratory: NONE Gastrointestinal: GERD, peptic ulcer disease, upper GI bleed, duodenitis gastritis Hepatic: NONE Renal: STAGE 4 CKD UTI Musculoskeletal: chronic back pain, osteoarthritis Psychiatric: anxiety Endocrine: hypothyroidism Blood Disorders: thrombocytopenia Cancer(s): NONE FRONT END DRIVER/Reproductive: NONE Other Medical Hx: HISTORY OF OPIATE/BENZO ABUSE History of MRSA: Yes History of VRE: No History of CDIFF: No Surgical History Surgical History: hysterectomy, s/p ORIF right hip Psychosocial History Who do you live with Patient/Self Services at Home Nursing Family History Family History, If Any: Relation not specified for: No pertinent family history (Carlita Bardales) Progress Plan of Care: Orders Procedure Date/time Status US-RENAL/KIDNEY 05/07 0600 Active TROPONIN LEVEL 05/07 0500 Active TOTAL IRON BINDING CAPACITY 05/07 0500 Active FERRITIN 05/07 0500 Active SERUM IRON 05/07 0500 Active CBC WITHOUT DIFFERENTIAL 05/07 0500 Active Regular Diet 05/06 D Active Code Status 05/06 2223 Active Pathway - chart 05/06 2205 Active Add-on Test (ER Only) 05/06 220 Active Patient Data 05/06 2149 Active Admit to inpatient 05/06 2148 Active Intake & Output 05/06 2131 Active LACTIC ACID 05/06 1934 Active URINE LYTES, SPOT 05/06 1740 Complete TSH REFLEX 05/06 1735 Complete CORTISOL PM 05/06 1735 Complete CULTURE,URINE 05/06 1634 Active BLOOD CULTURE 05/06 1634 Active URINALYSIS 05/06 1634 Complete TROPONIN LEVEL 05/06 1634 Complete LACTIC ACID 05/06 1634 Complete COMPREHENSIVE METABOLIC PANEL 05/06 1634 Complete CBC WITHOUT DIFFERENTIAL 05/06 1634 Complete EKG 05/06 1634 Active VTE Mechanical Prophylaxis 05/06 UNK Active Hemoccult 05/06 UNK Active Perez, Insertion/Removal/Asses 05/06 UNK Active Current Medications Sig/Kian Start time Last Medication Dose Stop Time Status Admin Ceftriaxone Sodium 1,000 MG DAILY 05/07 09 AC (Rocephin) Duloxetine HCl 60 MG DAILY 05/07 09 AC (Cymbalta) Escitalopram Oxalate 10 MG DAILY 05/07 09 AC (Lexapro) Polyethylene Glycol 17 GM DAILY 05/07 09 AC (Miralax) Senna/Docusate Sodium 2 TAB DAILY 05/07 09 AC (Senokot S) Omeprazole 40 MG DAILY AC 05/07 0700 AC (Prilosec) Heparin Sodium 5,000 UNIT Q8 05/07 0600 AC (Porcine) Levothyroxine Sodium 0.075 MG 0600 05/07 0600 AC (Synthroid) Fentanyl Citrate 50 MCG Q72H 05/06 2315 UNVr (Duragesic) Sodium Chloride 1,000 ML Q10H 05/06 2315 UNVr (Normal Saline 0.9%) Oxycodone HCl 5 MG TID PRN 05/06 2245 AC (Roxicodone) Acetaminophen 325 MG Q6P PRN 05/06 2215 AC (Tylenol) Laboratory Tests 05/06/18 1740: Urinalysis LIGHT H, Urine Color YEL, Urine Clarity CLEAR, Urine pH 6.0, Ur Specific Hanna 1.020, Urine Protein NEG, Urine Ketones NEG, Urine Nitrite NEG, Urine Bilirubin NEG, Urine Urobilinogen 0.2, Ur Leukocyte Esterase NEG, Ur Microscopic SEDIMENT EXAMINED, Urine RBC RARE, Urine WBC RARE, Ur Epithelial Cells FEW, Hyaline Casts 1-3 H, Urine Hemoglobin TRACE-INTACT, Urine Glucose NEG 05/06/18 1740: Ur Random Creatinine 73.0, Ur Random Sodium 28 L, Ur Random Potassium 42.4, Fraction Sodium Excret 1.4 H 05/06/18 1735: Anion Gap 11, Estimated GFR 9 L, BUN/Creatinine Ratio 8.8, Glucose 93, Lactic Acid 0.8, Calcium 7.7 L, Total Bilirubin 0.5, AST 35, ALT 37, Alkaline Phosphatase 37, Troponin I 0.03, Total Protein 5.7 L, Albumin 2.8 L, Globulin 2.9, Albumin/Globulin Ratio 1.0 L, TSH &T3 &Free T4 Intrp 1.170, Cortisol PM Sample 7.0, CBC w Diff NO MAN DIFF REQ, RBC 3.88 L, MCV 70.8 L, MCH 22.8 L, MCHC 32.2 L, RDW 17.3 H, MPV 7.3 L, Gran % 65.7, Lymphocytes % 21.5, Monocytes % 10.7 H, Eosinophils % 1.8, Basophils % 0.3, Absolute Granulocytes 2.7, Absolute Lymphocytes 0.9 L, Absolute Monocytes 0.4, Absolute Eosinophils 0.1, Absolute Basophils 0 05/06/18 1657: TSH &T3 &Free T4 Intrp Cancelled Microbiology 05/06 1740 URINE ROUT: Urine Culture - RECD 05/06 1735 BLOOD: Blood Culture - RECD 05/06 1720 BLOOD: Blood Culture - RECD (Balaji WYNN,Inder Iraheta) Departure Departure Condition: Stable Referrals: Salinas Madsen MD (PCP/Family) Departure Forms: Customer Survey General Discharge Information (Carlita Bardales) Admission Note Spoke With: Tg Pastor MD Documentation of Exam: Documentation of any treatments & extenuating circumstances including Concerns Regarding Discharge (functional status, medication knowledge or non-compliance, living conditions, etc.) that warrant an admission rather than observation: [ HYPOTENSION, CELLULITIS, CURRENTLY BEING TREATED WITH CIPRO FOR UTI, UA CURERENTLY CLEAN, PT REMIANS HYPOTENSIVE, LAST EF 65% IN 2016, D/W FAMILY, DNR/ DNI BUT THEY WOULD LIKE A CENTRAL LINE WITH PRESSURES NEEDED, ADMIT TO ICU, AGGRESSIVE HYDRATION, IV ABX, CRITICAL CARE CONSULT, PRESSURES NEEDED] PA/STEAM CLEANING MACHINE OPERATOR Co-Sign Statement Statement: ED Attending supervision documentation- [X] I saw and evaluated the patient. I have also reviewed all the pertinent lab results and diagnostic results. I agree with the findings and the plan of care as documented in the PA's/STEAM CLEANING MACHINE OPERATOR's documentation. [X] I have reviewed the ED Record and agree with the PA's/STEAM CLEANING MACHINE OPERATOR's documentation. [] Additions or exceptions (if any) to the PAs/STEAM CLEANING MACHINE OPERATOR's note and plan are summarized below: [SEE ABOVE] (Balaji WYNN,Inder Iraheta)
[2018-05-06 18:04] LABS: ABSOLUTE BASOPHIL COUNT 0 /CUMM (0.0-0.2); ABSOLUTE EOSINOPHIL COUNT 0.1 /CUMM (0.0-0.7); ABSOLUTE GRANULOCYTE CT 2.7 /CUMM (1.4-6.5); ABSOLUTE LYMPH COUNT 0.9 /CUMM (1.2-3.4); ABSOLUTE MONOCYTE COUNT 0.4 /CUMM (0.10-0.60); BASOPHIL % 0.3 % (0.0-2.0); EOSINOPHIL % 1.8 % (0-5); GRANULOCYTE % 65.7 % (42.2-75.2); HEMATOCRIT 27.5 % (37-47); MEAN CORPUSCULAR HGB 22.8 PG (27.0-31.0); MEAN CORPUSCULAR HGB CONC 32.2 G/DL (33.0-37.0); MEAN CORPUSCULAR VOLUME 70.8 FL (81.0-99.0); MEAN PLATELET VOLUME 7.3 FL (7.4-10.4); PLATELET COUNT 175 /CUMM (130-400); RBC DISTRIBUTION WIDTH 17.3 % (11.5-14.5); RED BLOOD CELL CT 3.88 /CUMM (4.20-5.40); WHITE BLOOD CELL COUNT 4.2 /CUMM (4.8-10.8)
--- NOTE | 2018-05-06 18:27 | RADIOLOGY REPORT ---
EXAMINATION: CHEST 1 VIEW CLINICAL INFORMATION: Altered mental status. COMPARISON: 10/22/2016. TECHNIQUE: An AP view of the chest is provided. FINDINGS: The cardiac silhouette is stable. The mediastinal and hilar contours are unremarkable. There are neither pleural effusions nor pneumothoraces. There are no consolidations. The osseous structures are unremarkable. IMPRESSION: No evidence for acute disease.
--- NOTE | 2018-05-06 22:07 | History & Physical ---
Daniel Pugh MD 05/06/18 8567: General Information and HPI MD Statement: I have seen and personally examined MIHAI DUMONT and documented this H&P. The patient is a 88 year old F who presented with a patient stated chief complaint of altered mental status and hypotension. Source of Information: patient, old records, [facility] Exam Limitations: clinical condition, dementia History of Present Illness: 88 year old female with past medical history significant for HTN, h/o NSTEMI, CKD Stage IIIA, chronic venous insufficiency, peptic ulcer disease, depression, chronic pain, and dementia was brought in from [place] for a change in mental status and hypotension. She is able to provide a very limited history due to dementia and most of the history is obtained from the [facility]. The patient was recently treated with Ciprofloxacin 500mg po bid started 05/01/18 for a UTI. She complains of dysuria and feeling cold. She denies any fevers. She states she is having some difficulty breathing but denies cough, congestion, or sore throat. She was placed on 2L of supplemental oxygen in the ED. She denies any complaints of pain. She apparently was difficult to arouse this morning, with laboratory abnormalities including anemia and worsening renal function. She was found to be hypotensive with an SBP in the 80s and brought to the hospital. In the ED, she had a chest x-ray, blood and urine cultures were performed. She was bolused two liters of crystalloid with an improvement in her systolic blood pressure. She was given a dose of vancomycin and ceftriaxone for possible sepsis and admitted to critical care for further management. Allergies/Medications Allergies: Coded Allergies: cetirizine (UNKNOWN PER 03/26/16) diazepam (UNKNOWN PER 03/26/16) Compliance With Home Meds: GOOD Past History Travel History Traveled to [place] past 21 day No Medical History Neurological: dementia, NEUROPATHY EENT: NONE Cardiovascular: CHF, hypertension, hyperlipidemia Respiratory: NONE Gastrointestinal: GERD, peptic ulcer disease, upper GI bleed, duodenitis gastritis Hepatic: NONE Renal: STAGE 4 CKD UTI Musculoskeletal: chronic back pain, osteoarthritis Psychiatric: anxiety Endocrine: hypothyroidism Blood Disorders: thrombocytopenia Cancer(s): NONE 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 yes Functional Ability ADLs Needs Assist: dressing, eating, toileting, bathing. Ambulation: LIVES AT A NURSING CARE FACILITY IADLs Needs Assist: shopping, housework, finances, food prep, telephone, transportation, medication admin. Review of Systems Review of Systems Constitutional: Reports: see HPI. Comments patient unable to provide a meaningful review of systems because of dementia Exam & Diagnostic Data Last 24 Hrs of Vital Signs/I&O Vital Signs Date Time Temp Pulse Resp B/P B/P Pulse O2 O2 Flow FiO2 Mean Ox Delivery Rate 05/06 2114 79/49 05/06 1839 98.7 67 16 93/53 95 Nasal 2.0L Cannula 05/06 1806 75 85/56 05/06 1805 95 Nasal 2.0L Cannula 05/06 1635 99.1 70 20 80/47 95 Nasal 2.0L Cannula Physical Exam General Appearance Alert, Cooperative, No Acute Distress, oriented to self only, on 2L NC, no respiratory distress Skin No Rashes, No Breakdown Skin Temp/Moisture Exam: Warm/Dry HEENT Atraumatic, PERRLA, EOMI Neck Supple, No JVD Cardiovascular Regular Rate, Normal S1, Normal S2, systolic murmur 2/6 Lungs Clear to Auscultation, Normal Air Movement Abdomen Normal Bowel Sounds, Soft, No Tenderness, No Masses Extremities chronic venous insufficiency changes of the bilateral lower extremities, skin thickening, some brawny mild edema, lymphedema left worse than right Sepsis Peripheral Pulse Location: Radial Sepsis Peripheral Pulse Exam: Normal Sepsis Cap Refill Exam: <2 Sec Last 24 Hrs of Labs/Khang: Laboratory Tests 05/06/180: Urinalysis LIGHT H, Urine Color YEL, Urine Clarity CLEAR, Urine pH 6.0, Ur Specific Lindley 1.020, Urine Protein NEG, Urine Ketones NEG, Urine Nitrite NEG, Urine Bilirubin NEG, Urine Urobilinogen 0.2, Ur Leukocyte Esterase NEG, Ur Microscopic SEDIMENT EXAMINED, Urine RBC RARE, Urine WBC RARE, Ur Epithelial Cells FEW, Hyaline Casts 1-3 H, Urine Hemoglobin TRACE-INTACT, Urine Glucose NEG 05/06/180: Ur Random Creatinine 73.0, Ur Random Sodium 28 L, Ur Random Potassium 42.4, Fraction Sodium Excret 1.4 H 05/06/18 1735: Anion Gap 11, Estimated GFR 9 L, BUN/Creatinine Ratio 8.8, Glucose 93, Lactic Acid 0.8, Calcium 7.7 L, Total Bilirubin 0.5, AST 35, ALT 37, Alkaline Phosphatase 37, Troponin I 0.03, Total Protein 5.7 L, Albumin 2.8 L, Globulin 2.9, Albumin/Globulin Ratio 1.0 L, TSH &T3 &Free T4 Intrp 1.170, Cortisol PM Sample Pending, CBC w Diff NO MAN DIFF REQ, RBC 3.88 L, MCV 70.8 L, MCH 22.8 L, MCHC 32.2 L, RDW 17.3 H, MPV 7.3 L, Gran % 65.7, Lymphocytes % 21.5, Monocytes % 10.7 H, Eosinophils % 1.8, Basophils % 0.3, Absolute Granulocytes 2.7, Absolute Lymphocytes 0.9 L, Absolute Monocytes 0.4, Absolute Eosinophils 0.1, Absolute Basophils 0 05/06/18 1657: TSH &T3 &Free T4 Intrp Cancelled Microbiology 05/06 1740 URINE ROUT: Urine Culture - RECD 05/06 1735 BLOOD: Blood Culture - RECD 05/06 1720 BLOOD: Blood Culture - RECD Diagnostic Data EKG Results sinus rhythm, old inferior infarct CXR Results no acute disease Assessment/Plan Assessment: 88 year old female with past medical history significant for HTN, CKD Stage IIIA , chronic venous insufficiency, peptic ulcer disease, depression, chronic pain, and dementia was brought in from [place] for a change in mental status and hypotension. She was admitted to critical care for hypotension not responsive to fluid resuscitation and sepsis evaluation. Hypotension: SBP in the 80s Given 3L crystalloid resuscitation in the ED Continue maintanence NS @ 75cc/hr Bolus as needed to maintain MAP >65 Consider central line and pressors if necessary Hold all antihypertensive: metoprolol, lisinopril, aldactone TSH wnl, check random cortisol Lactic acid wnl Rule out sepsis, h/o pseudomonas bacteremia Urinalysis not suggestive of infection, although she recently completed antibiotics Continue ceftriaxone 1g daily, given 1 dose of vancomycin for possible stasis dermatitis LLE Follow up blood and urine cultures Anemia: Microcytic anemia Hemoglobin ~9, was 10-11 last month Repeat CBC Guiaic stool Check iron studies Acute kidney injury on CKD Stage IIIA: Possibly medication related, on diuretics, and recently added ciprofloxacin Creatinine elevated to 4.8, previously baseline around 1.3 Urinalysis unremarkable, no pyuria, proteinuria, LE or nitrite, hyaline casts Check urine electrolytes, FeNa Continue IVFs Repeat renal function Avoid nephrotoxins, NSAIDs, contrast Restart ACEi when BP permits Perez catheter, strict I/O's Check renal ultrasound Chronic pain: Continue fentanyl patch Continue oxycodone 5mg prn Continue cymbalta Gabapentin held for now Depression: Continue lexapro Hypothyroidism: TSH wnl Continue synthroid HTN: Aldactone, lasix, and metoprolol on hold h/o HFpEF/NSTEMI: Should be on aspirin, statin, ACEi therapy Metoprolol, lasix, and aldactone held EKG sinus rhythm, old inferior infarct Check troponins and EKGs x 2, first troponin 0.03 proBNP elevated to 5650 Chronic venous insufficiency: Restart diuretics as blood pressure allows Evidence of peripheral vascular disease in the LLE popliteal/SFA on arterial ultrasound 2015 Consider venous doppler for DVT evaluation PUD: Continue PO PPI Regular diet DVT ppx-heparin sc DNR As Ranked By This Provider Problem List: 1. Cellulitis of left leg 2. Sepsis 3. CKD (chronic kidney disease) 4. Hypotension 5. Altered mental status 6. Acute kidney injury Core Measures/Misc (07/08) Acute Coronary Syndrome ACS Diagnosis: No Congestive Heart Failure Congestive Heart Failure Diagnosis No Cerebrovascular Accident CVA/TIA Diagnosis: No VTE (View Protocol) VTE Risk Factors Age>40 No Mechanical VTE Prophylaxis d/t N/A MechProphylax Ordered No VTE Pharm Prophylaxis d/t NA PharmProphylax ordered Sepsis (View protocol) Sepsis Present: No If YES complete Sepsis Event Note If YES complete Sepsis Event Note Tg Pastor MD 05/06/18 7684: General Information and HPI Allergies/Medications Home Med list Acetaminophen 500 MG TABLET 1 TAB PO TID PAIN (Reported) Bisacodyl 10 MG SUPP.RECT 10 MG [place] PRN IF MOM NOT EFFECTIVE (Reported) Cranberry Extract (Cranberry) 200 MG CAPSULE 1 TAB PO DAILY UTI PREVENTION ( Reported) Duloxetine HCl 60 MG CAPSULE.DR 1 CAP PO DAILY MENTAL HEALTH (Reported) Escitalopram Oxalate (Lexapro) 10 MG TABLET 1 TAB PO DAILY MENTAL HEALTH ( Reported) Fentanyl (Duragesic) 25 MCG/HOUR PATCH.TD72 1 PATCH TD Q72 PAIN (Reported) Furosemide (Lasix) 40 MG TABLET 0.75 TAB PO BID DIURETIC (Reported) Reason to Stop at ADM: HYPOTENSIVE AND ON FLUIDS Gabapentin 100 MG CAPSULE 3 CAP PO TID NEUROPATHY/PAIN (Reported) Levothyroxine Sodium (Synthroid) 88 MCG TABLET 1 TAB PO DAILY HYPOTHYROID ( Reported) Lubiprostone (Amitiza) 8 MCG CAPSULE 1 CAP PO DAILY GI (Reported) Mag Hydrox/Al Hydrox/Simeth (Mintox Suspension) 200 MG-200 MG-20 MG/5 ML ORAL.SUSP 20 ML PO Q6PRN PRN GI UPSET (Reported) Magnesium Hydroxide (Milk Of Magnesia) 400 MG/5 ML ORAL.SUSP 30 ML PO PRN CONSTIPATION (Reported) Metoprolol Tartrate 25 MG TABLET 0.5 MG PO BID HEART HEALTH Na Phos,M-B/Na Phos,Di-Ba (Fleet Enema) 19 GRAM-7 GRAM/118 ML ENEMA IF DUCOLAX INEFFECTIVE (Reported) Omeprazole 10 MG CAPSULE.DR 1 CAP PO 0600 GI (Reported) Oxycodone HCl 10 MG TABLET 0.5 TAB PO TID PAIN (Reported) Polyethylene Glycol 3350 (Miralax) 17 GM POWD.PACK 1 PAC PO DAILY GI ( Reported) dissolve in water Spironolactone 25 MG TABLET 12.5 MG PO DAILY DIURETIC (Reported) Reason to Stop at ADM: HYPOTENSIVE Core Measures/Misc (07/08) Sepsis (View protocol) If YES complete Sepsis Event Note If YES complete Sepsis Event Note Attending MD Review Statement Attending Statement Attending MD Statement: examined this patient, discuss w/resident/PA/NUCLEAR INSTRUCTOR, agreed w/resident/PA/NUCLEAR INSTRUCTOR, reviewed EMR data (avail), discussed with nursing, amended to note Attending Assessment/Plan: 86-year-old female with history of dementia, kidney disease stage IV, chronic leg swelling secondary to venous stasis, hypothyroidism, depression, chronic pain syndrome. Sent in from [place] term with reports of altered mental status. She was found to be hypotensive in the emergency room with blood pressure in the 70s. No clear etiology of infectious process other than chronic bilateral lower extremity swelling. She has had a history of cellulitis of lower extremities in the past that was bacteremic in the past. She was started empirically on vancomycin and Rocephin and was referred to the medical service for further evaluation and management. Unable to obtain any reasonable history from the patient due to her dementia. She did answer simple questions. She did complain of generalized pain. Pupils were equal and reactive. No jugular venous distention. Heart sounds are regular with a 3/6 systolic murmur. Lungs are clear to auscultation bilaterally. Abdomen was nondistended soft and nontender. She has bilateral lower extremity lymphedema. There is no open areas. There is no area of erythema. She has a skin lesion on the left shoulder. Problems: 1. Septic shock 2. Bilateral chronic lymphedema 3. Hypothyroidism 4. Chronic pain syndrome 5. Dementia 6. Acute kidney injury 7. Acute on chronic anemia. Plan: -Admit to inpatient medical service. -Close monitoring in the intensive care unit. -Patient presents with evidence of sepsis. Etiology does not appear clear present. Broad-spectrum antibiotic therapy with IV vancomycin given history of MRSA bacteremia and Rocephin for possible cellulitis. -Continue aggressive hydration to maintain a map of greater than 60. Following 3 L of fluid if patient remains hypotensive with map less than 60 recommend placement of a triple-lumen catheter and initiation of vasopressor therapy. If blood pressure is stable recommend maintaining patient on D5 half-normal saline at 100 cc an hour for another 1 L. -Hold metoprolol, lisinopril, Lasix, Aldactone. -Hold gabapentin. Hold oxycodone may resume if blood pressure is stable in a.m. -Okay to continue her fentanyl patch for now for pain control. -Trend cardiac enzymes. Obtain echocardiogram to rule out cardiogenic component to her shock. -Follow-up on cultures. -Repeat hemoglobin level tonight and again in the morning. Check stool guaiac. If hemoglobin levels continue to trend downwards and stool guaiac positive obtain GI consultation. -Obtain renal sonogram to rule out obstructive disease as contributing to her HPI and also to evaluate for possible renal source of infection. -DVT prophylaxis heparin subcu. -Recommend cleaning legs thoroughly with warm water and soap.
[2018-05-06] MEDS ORDERED: SYNTHROID88 MCG PO (23:58)
[2018-05-07] VITALS: BP 104/52
[2018-05-07 02:16] LABS: ABSOLUTE BASOPHIL COUNT 0 /CUMM (0.0-0.2); ABSOLUTE EOSINOPHIL COUNT 0 /CUMM (0.0-0.7); ABSOLUTE GRANULOCYTE CT 3.3 /CUMM (1.4-6.5); ABSOLUTE LYMPH COUNT 0.6 /CUMM (1.2-3.4); ABSOLUTE MONOCYTE COUNT 0.5 /CUMM (0.10-0.60); BASOPHIL % 0.1 % (0.0-2.0); EOSINOPHIL % 0.8 % (0-5); GRANULOCYTE % 75.1 % (42.2-75.2); HEMATOCRIT 27.9 % (37-47); MEAN CORPUSCULAR HGB 23.3 PG (27.0-31.0); MEAN CORPUSCULAR HGB CONC 32.3 G/DL (33.0-37.0); MEAN PLATELET VOLUME 7.7 FL (7.4-10.4); PLATELET COUNT 161 /CUMM (130-400); RBC DISTRIBUTION WIDTH 16.9 % (11.5-14.5); RED BLOOD CELL CT 3.87 /CUMM (4.20-5.40); WHITE BLOOD CELL COUNT 4.4 /CUMM (4.8-10.8)
[2018-05-07 04:54] LABS: ABSOLUTE BASOPHIL COUNT 0 /CUMM (0.0-0.2); ABSOLUTE EOSINOPHIL COUNT 0 /CUMM (0.0-0.7); ABSOLUTE GRANULOCYTE CT 2.9 /CUMM (1.4-6.5); ABSOLUTE LYMPH COUNT 0.6 /CUMM (1.2-3.4); ABSOLUTE MONOCYTE COUNT 0.4 /CUMM (0.10-0.60); BASOPHIL % 0.4 % (0.0-2.0); EOSINOPHIL % 0.9 % (0-5); GRANULOCYTE % 73.5 % (42.2-75.2); HEMATOCRIT 28.4 % (37-47); MEAN CORPUSCULAR HGB 23.2 PG (27.0-31.0); MEAN CORPUSCULAR VOLUME 72.5 FL (81.0-99.0); MEAN PLATELET VOLUME 7.4 FL (7.4-10.4); PLATELET COUNT 164 /CUMM (130-400); RBC DISTRIBUTION WIDTH 17.1 % (11.5-14.5); RED BLOOD CELL CT 3.92 /CUMM (4.20-5.40)
--- NOTE | 2018-05-07 07:20 | Cons- CRCU ---
Derrick WYNN,[facility] 05/07/18 0720: General Information and HPI Consulting Request Date of Consult: 05/07/18 Requested By: Dr Pastor. Reason for Consult: Hypertension Infection Source of Information: W10 Exam Limitations: confusion History of Present Illness: 88 year old female with past medical history significant for HTN, h/o NSTEMI, CKD Stage IIIA, chronic venous insufficiency, peptic ulcer disease, depression, chronic pain, and dementia was brought in from [place] for a change in mental status and hypotension. She is able to provide a very limited history due to dementia and most of the history is obtained from the W10. The patient was recently treated with Ciprofloxacin 500mg po bid started 05/01/18 for a UTI. She complains of dysuria and feeling cold. She denies any fevers. She states she is having some difficulty breathing but denies cough, congestion, or sore throat. She was placed on 2L of supplemental oxygen in the ED. She denies any complaints of pain. She apparently was difficult to arouse this morning, with laboratory abnormalities including anemia and worsening renal function. She was found to be hypotensive with an SBP in the 80s and brought to the hospital. In the ED, she had a chest x-ray, blood and urine cultures were performed. She was bolused two liters of crystalloid with an improvement in her systolic blood pressure. She was given a dose of vancomycin and ceftriaxone for possible sepsis and admitted to critical care for further management. Allergies/Medications Allergies: Coded Allergies: cetirizine (UNKNOWN PER 03/26/16) diazepam (UNKNOWN PER 03/26/16) Home Med List: Acetaminophen 500 MG TABLET 1 TAB PO TID PAIN (Reported) Bisacodyl 10 MG SUPP.RECT 10 MG NH PRN IF MOM NOT EFFECTIVE (Reported) Cranberry Extract (Cranberry) 200 MG CAPSULE 1 TAB PO DAILY UTI PREVENTION ( Reported) Duloxetine HCl 60 MG CAPSULE.DR 1 CAP PO DAILY MENTAL HEALTH (Reported) Escitalopram Oxalate (Lexapro) 10 MG TABLET 1 TAB PO DAILY MENTAL HEALTH ( Reported) Fentanyl (Duragesic) 25 MCG/HOUR PATCH.TD72 1 PATCH TD Q72 PAIN (Reported) Furosemide (Lasix) 40 MG TABLET 0.75 TAB PO BID DIURETIC (Reported) Reason to Stop at ADM: HYPOTENSIVE AND ON FLUIDS Gabapentin 100 MG CAPSULE 3 CAP PO TID NEUROPATHY/PAIN (Reported) Levothyroxine Sodium (Synthroid) 88 MCG TABLET 1 TAB PO DAILY HYPOTHYROID ( Reported) Lubiprostone (Amitiza) 8 MCG CAPSULE 1 CAP PO DAILY GI (Reported) Mag Hydrox/Al Hydrox/Simeth (Mintox Suspension) 200 MG-200 MG-20 MG/5 ML ORAL.SUSP 20 ML PO Q6PRN PRN GI UPSET (Reported) Magnesium Hydroxide (Milk Of Magnesia) 400 MG/5 ML ORAL.SUSP 30 ML PO PRN CONSTIPATION (Reported) Metoprolol Tartrate 25 MG TABLET 0.5 MG PO BID [facility] Na Phos,M-B/Na Phos,Di-Ba (Fleet Enema) 19 GRAM-7 GRAM/118 ML ENEMA IF DUCOLAX INEFFECTIVE (Reported) Omeprazole 10 MG CAPSULE.DR 1 CAP PO 0600 GI (Reported) Oxycodone HCl 10 MG TABLET 0.5 TAB PO TID PAIN (Reported) Polyethylene Glycol 3350 (Miralax) 17 GM POWD.PACK 1 PAC PO DAILY GI ( Reported) dissolve in water Spironolactone 25 MG TABLET 12.5 MG PO DAILY DIURETIC (Reported) Reason to Stop at ADM: HYPOTENSIVE Review of Systems Review of Systems Constitutional: Reports: no symptoms (and everybody in a month 9 pre). 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 Extended Care Facility Services at Home: Nursing Primary Language: Congolese Smoking Status: Unknown If Ever Smoked Living Will? yes Functional Ability ADLs Needs Assist: dressing, eating, toileting, bathing. Ambulation: LIVES AT A NURSING CARE FACILITY IADLs Needs Assist: shopping, housework, finances, food prep, telephone, transportation, medication admin. Exam & Diagnostic Data Last 24 Hrs of Vital Signs/I&O Vital Signs Date Time Temp Pulse Resp B/P B/P Pulse O2 O2 Flow FiO2 Mean Ox Delivery Rate 05/07 1600 98.6 73 18 102/60 99 Nasal 2.0L Cannula 05/07 1600 95 Nasal 2.0L Cannula 05/07 1200 94 Nasal 2.0L Cannula 05/07 0800 97.7 64 25 96/46 92 Nasal 2.0L Cannula 05/07 0800 93 Nasal 2.0L Cannula 05/07 0400 97 Nasal 2.0L Cannula 05/07 0000 97.6 78 22 104/52 92 Nasal 2.0L Cannula 05/06 2355 92 Nasal 2.0L Cannula 05/06 2245 69 116/57 05/06 2114 79/49 Intake & Output 05/07 1600 05/07 0800 05/07 0000 Intake Total 2009 1682 1250 Output Total 750 650 800 Balance 1260 1032 450 Intake, IV 1290 1682 1250 Intake, Oral 720 0 Number 1 1 Bowel Movements Output, Urine 750 650 800 Patient 66.848 kg 63.673 kg 63.673 kg Weight Weight Bed scale Bed scale Bed scale Measurement Method Physical Exam General Appearance: alert, awake, oriented to person and place Other Physical Findings: Skin No Rashes, No Breakdown Skin Temp/Moisture Exam: Warm/Dry HEENT Atraumatic, PERRLA, EOMI Neck Supple, No JVD Cardiovascular Regular Rate, Normal S1, Normal S2, systolic murmur 2/6 Lungs Clear to Auscultation, Normal Air Movement Abdomen Normal Bowel Sounds, Soft, No Tenderness, No Masses Extremities chronic venous insufficiency changes of the bilateral lower extremities, skin thickening, some brawny mild edema, lymphedema left worse than right Last 48 Hrs of Labs/Khang: Laboratory Tests 05/07/18 1059: Troponin I 0.06 05/07/18 0420: Iron 38, TIBC 290, Ferritin 39.4, Troponin I 0.05 05/07/18 0420: Anion Gap 11, Estimated GFR 11 L, Glucose 88, Calcium 7.0 L, Phosphorus 6.1 H , Magnesium 1.8, Total Bilirubin 0.4, AST 27, ALT 28, Albumin 2.3 L, CBC w Diff NO MAN DIFF REQ, RBC 3.92 L, MCV 72.5 L, MCH 23.2 L, MCHC 32.0 L, RDW 17.1 H, MPV 7.4, Gran % 73.5, Lymphocytes % 16.1 L, Monocytes % 9.1, Eosinophils % 0.9, Basophils % 0.4, Absolute Granulocytes 2.9, Absolute Lymphocytes 0.6 L, Absolute Monocytes 0.4, Absolute Eosinophils 0, Absolute Basophils 0 05/07/18 0200: CBC w Diff NO MAN DIFF REQ, RBC 3.87 L, MCV 72.0 L, MCH 23.3 L, MCHC 32.3 L, RDW 16.9 H, MPV 7.7, Gran % 75.1, Lymphocytes % 13.2 L, Monocytes % 10.8 H, Eosinophils % 0.8, Basophils % 0.1, Absolute Granulocytes 3.3, Absolute Lymphocytes 0.6 L, Absolute Monocytes 0.5, Absolute Eosinophils 0, Absolute Basophils 0 05/06/18 1934: Lactic Acid Cancelled 05/06/18 1740: Urinalysis LIGHT H, Urine Color YEL, Urine Clarity CLEAR, Urine pH 6.0, Ur Specific [place] 1.020, Urine Protein NEG, Urine Ketones NEG, Urine Nitrite NEG, Urine Bilirubin NEG, Urine Urobilinogen 0.2, Ur Leukocyte Esterase NEG, Ur Microscopic SEDIMENT EXAMINED, Urine RBC RARE, Urine WBC RARE, Ur Epithelial Cells FEW, Hyaline Casts 1-3 H, Urine Hemoglobin TRACE-INTACT, Urine Glucose NEG 05/06/18 1740: Ur Random Creatinine 73.0, Ur Random Sodium 28 L, Ur Random Potassium 42.4, Fraction Sodium Excret 1.4 H 05/06/18 1735: Anion Gap 11, Estimated GFR 9 L, BUN/Creatinine Ratio 8.8, Glucose 93, Lactic Acid 0.8, Calcium 7.7 L, Total Bilirubin 0.5, AST 35, ALT 37, Alkaline Phosphatase 37, Troponin I 0.03, Total Protein 5.7 L, Albumin 2.8 L, Globulin 2.9, Albumin/Globulin Ratio 1.0 L, TSH &T3 &Free T4 Intrp 1.170, Cortisol PM Sample 7.0, CBC w Diff NO MAN DIFF REQ, RBC 3.88 L, MCV 70.8 L, MCH 22.8 L, MCHC 32.2 L, RDW 17.3 H, MPV 7.3 L, Gran % 65.7, Lymphocytes % 21.5, Monocytes % 10.7 H, Eosinophils % 1.8, Basophils % 0.3, Absolute Granulocytes 2.7, Absolute Lymphocytes 0.9 L, Absolute Monocytes 0.4, Absolute Eosinophils 0.1, Absolute Basophils 0 05/06/18 1657: TSH &T3 &Free T4 Intrp Cancelled Assessment/Plan CRCU Impression/Plan: 88-year-old lady with a past medical history significant for hypertension, CHF, CAD, hypothyroidism, also arthritis, peptic ulcer disease, chronic venous stasis change on both lower extremities, currently residing at [facility] presented to [facility] ED for evaluation of altered mental status and progressive decrease of oral intake in the past few days. On presentation patient is found to have hypotension with systolic in the 80s in addition to altered mental status. Patient was admitted to ICU for close monitoring of hypertensive with possible infection as the cause. CXR and UA unremarkable. Impression and plan Respiratory: Currently on 2 L nasal cannula, patient does not appear in any respiratory distress. Chest x-ray is unremarkable for any acute infectious pathology. We'll taper off oxygen appropriately to maintain sats above 90%. Infection: Her hypotension and a white count of 4 suggestive of infection especially the context of left lower extremity which is more erythematous compared to the right one, these findings could suggest cellulitis. The induration on the left deltoid area c with no significant could also possibly be associated with infection especially given that records indicate her PCP had once obtain cultures after drainage which were positive for MRSA. For now we'll continue with ceftriaxone and follow-up on white count and blood cultures tomorrow morning. Cardiovascular: Her hypotension is most likely secondary to dehydration as the BUN/creatinine and acute on chronic rise of creatinine is suggestive of prerenal etiology from dehydration. She did improve after IV fluids hydration. We'll continue with hydration and monitor ins and outs. Hematology: Chronic anemia with an MCV of 72 suggestive of microcytic anemia. Unclear whether this is iron deficiency or CKD (this normally presents with an normocytic anemia). There is no acute blood loss right now. We'll continue to monitor H&H. Metabolic: JETHRO superimposed on CKD as evident by an elevated creatinine of 5.0 on presentation when compared to average baseline of 1.2. Acute kidney injury is probably secondary to acute tubular necrosis secondary to infection/sepsis as evident by urine sediment and a FeNa of greater than 1 dehydration. There is a component of prerenal azotemia given that she improved with IV fluid hydration. Phosphatemia is more consistent with worsening kidney function. We'll continue with IV hydration, trend kidney function and start calcium carbonate as a phosphate binder per nephrology recommendation. Alimentary; we'll continue regular diet. Neurology; no focal neurological deficit. Awake and alert oriented to person and place only. Will avoid any delirium triggers such as constipation, pain, unnecessary nursing intervention.. Consult Acknowledgment - Thank you for your consult request. Chance Gonzalez MD 05/07/18 0914: Assessment/Plan CRCU Other Findings/Comments: I have: examined this patient, reviewed aval EMR data, personally reviewd images, discussd w/resident/PA/PRECISE WINDER, discussed mgmt plan w/jhonny, discussed mgmt plan w/CM, discussed mgmt plan w/pt, agreed w/resident/PA/PRECISE WINDER, amended to note. Impression 88 year old woman * Hypotension - can be secondary to dehydration and pre-renal azotemia and also consistent with severe sepsis secondary to most likely cellulitis of LE, also a left shoulder purulence and fluctuation * JETHRO likely secondary to dehydration/pre-renal azotemia * anemia Plan -antibiotics - vancomycin and ceftriaxone were administered overnight -will call Dr. Barreto for tailoring antibiotics -will call surgical consultation for evaluation if the left shoulder requires any I&D -nephrology consultation -continue IVF -check ECHO given systolic murmur -dc steroids for now DVT prophylaxis at all times TTS 40 min Per the ER documentation - discussion documented that patient is DNR/DNI Consult Acknowledgment - Thank you for your consult request.
[2018-05-07 08:00] VITALS: BP 96/46
--- NOTE | 2018-05-07 08:57 | ULTRASOUND REPORT ---
EXAMINATION: US RETROPERITONEAL COMPLETE (RENAL) CLINICAL INFORMATION: Hypotension. JETHRO. COMPARISON: Chest CTA 10/29/2012. TECHNIQUE: Real-time imaging of the kidneys and bladder. The study was performed portably. FINDINGS: RIGHT KIDNEY: 11.6 x 5.0 x 6.3 cm (SAG x AP x TRV). The kidney is normal in size, contour, and echogenicity. Renal cortical thickness is normal. No calculi or focal parenchymal lesions. No hydronephrosis. LEFT KIDNEY: Not visualized. In correlation with prior studies including chest CTA from 08/29/2013 there is marked left renal atrophy. BLADDER: Empty and not well evaluated. The ureteral jets were not seen. IMPRESSION: Normal appearance of the right kidney. Left kidney is markedly atrophic and could not be visualized.
--- NOTE | 2018-05-07 11:26 | Cons- Nephrology ---
General Information and HPI Consulting Request Date of Consult: 05/07/18 Requested By: Tg Pastor MD Reason for Consult: JETHRO Source of Information: old records Exam Limitations: dementia History of Present Illness: The patient is an 88-year-old woman with a past medical history most significant for stage III chronic kidney disease with baseline creatinine approximately 1.2- 1.5 with an atrophic left kidney, hypertension, CAD, chronic venous insufficiency, peptic ulcer disease who presents from extended care facility with altered mental status and hypotension. 3 difficult to obtain history from the patient as she is not specific, however, it sounds like she went to her primary care doctor on 05/01unclear if this is an appointment previously scheduled or for specific reasonsat which time she was thought to have a urinary tract infection and started on ciprofloxacin 500 mg by mouth twice a day. He is unable to remember any symptoms that she was having at that time but says that she always feels bad. She was sent in for altered mental status. In the Emergency room, initial blood pressure 80/47 heart rate 70afebrile. She was found on lab work to have a creatinine 5.0, bicarbonate 28, lactate 0.8, negative troponin, albumin 2.8, white count 4.2, hemoglobin 8.8. No Peripheral eosinophilia. Urinalysis negative for protein or cells. FENa 1.4%Chest x-ray negative for any acute disease. Renal ultrasound unable to visualize left kidney which was noted to be markedly atrophic in 2012. Right kidney 11.6 cm without any hydronephrosis. The thought is that she may have left lower extremity cellulitis and/or possible left shoulder infection as well for which she has been started on empiric abx. She has received approx 3L of IVF. SBP now Patient herself is not a good historian, however, her outpatient med list (lives at an [facility]) noted 30 mg of Lasix twice a day with spironolactone 12.5 mg daily. I don't see any NSAIDs. She is unable to detail any history of urinary difficulties. She is unable to tell me how her PO intake has been. Allergies/Medications Allergies: Coded Allergies: cetirizine (UNKNOWN PER 03/26/16) diazepam (UNKNOWN PER 03/26/16) Home Med List: Acetaminophen 500 MG TABLET 1 TAB PO TID PAIN (Reported) Bisacodyl 10 MG SUPP.RECT 10 MG IA PRN IF MOM NOT EFFECTIVE (Reported) Cranberry Extract (Cranberry) 200 MG CAPSULE 1 TAB PO DAILY UTI PREVENTION ( Reported) Duloxetine HCl 60 MG CAPSULE.DR 1 CAP PO DAILY MENTAL HEALTH (Reported) Escitalopram Oxalate (Lexapro) 10 MG TABLET 1 TAB PO DAILY MENTAL HEALTH ( Reported) Fentanyl (Duragesic) 25 MCG/HOUR PATCH.TD72 1 PATCH TD Q72 PAIN (Reported) Furosemide (Lasix) 40 MG TABLET 0.75 TAB PO BID DIURETIC (Reported) Reason to Stop at ADM: HYPOTENSIVE AND ON FLUIDS Gabapentin 100 MG CAPSULE 3 CAP PO TID NEUROPATHY/PAIN (Reported) Levothyroxine Sodium (Synthroid) 88 MCG TABLET 1 TAB PO DAILY HYPOTHYROID ( Reported) Lubiprostone (Amitiza) 8 MCG CAPSULE 1 CAP PO DAILY GI (Reported) Mag Hydrox/Al Hydrox/Simeth (Mintox Suspension) 200 MG-200 MG-20 MG/5 ML ORAL.SUSP 20 ML PO Q6PRN PRN GI UPSET (Reported) Magnesium Hydroxide (Milk Of Magnesia) 400 MG/5 ML ORAL.SUSP 30 ML PO PRN CONSTIPATION (Reported) Metoprolol Tartrate 25 MG TABLET 0.5 MG PO BID [facility] Na Phos,M-B/Na Phos,Di-Ba (Fleet Enema) 19 GRAM-7 GRAM/118 ML ENEMA IF DUCOLAX INEFFECTIVE (Reported) Omeprazole 10 MG CAPSULE.DR 1 CAP PO 0600 GI (Reported) Oxycodone HCl 10 MG TABLET 0.5 TAB PO TID PAIN (Reported) Polyethylene Glycol 3350 (Miralax) 17 GM POWD.PACK 1 PAC PO DAILY GI ( Reported) dissolve in water Spironolactone 25 MG TABLET 12.5 MG PO DAILY DIURETIC (Reported) Reason to Stop at ADM: HYPOTENSIVE Current Medications: Current Medications Sig/Kian Start time Last Medication Dose Route Stop Time Status Admin Acetaminophen 325 MG Q6P PRN 05/06 2215 AC PO Ceftriaxone Sodium 1,000 MG DAILY 05/07 0900 DC IV Ceftriaxone Sodium 1,000 MG DAILY 05/07 0900 AC 05/07 IV 1014 Ceftriaxone Sodium 0 .STK-MED ONE 05/06 1813 DC .ROUTE Ceftriaxone Sodium 1,000 MG ONCE ONE 05/06 1700 DC 05/06 IV 05/06 1701 1825 Duloxetine HCl 60 MG DAILY 05/07 0900 AC 05/07 PO 0901 Escitalopram Oxalate 10 MG DAILY 05/07 0900 CAN PO Fentanyl Citrate 25 MCG Q72H 05/06 2345 AC TOP Fentanyl Citrate 50 MCG Q72H 05/06 2315 DC TOP Heparin Sodium 5,000 UNIT Q8 05/07 0600 AC 05/07 (Porcine) SC 0627 Hydrocortisone 50 MG Q8H 05/07 0730 DC 05/07 Sodium Succinate IV 0752 Levothyroxine Sodium 0.075 MG 0600 05/07 0600 CAN PO Levothyroxine Sodium 0.088 MG 0600 05/07 0600 AC 05/07 PO 0900 Omeprazole 40 MG DAILY AC 05/07 0700 AC 05/07 PO 0900 Oxycodone HCl 5 MG TID PRN 05/06 2245 DC PO Polyethylene Glycol 17 GM DAILY 05/07 0900 AC 05/07 PO 0901 Senna/Docusate Sodium 2 TAB DAILY 05/07 0900 AC 05/07 PO 0900 Sodium Chloride 1,000 ML BOLUS ONE 05/07 0200 DC 05/07 IV 05/07 0259 0200 Sodium Chloride 1,000 ML Q10H 05/06 2315 AC 05/07 IV 0901 Sodium Chloride 1,000 ML BOLUS ONE 05/06 2145 DC 05/06 IV 05/06 2244 2205 Sodium Chloride 1,000 ML BOLUS ONE 05/06 2115 DC 05/06 IV 05/06 2214 2130 Sodium Chloride 1,000 ML BOLUS ONE 05/06 1700 DC 05/06 IV 05/06 1759 1804 Vancomycin HCl 0 .STK-MED ONE 05/06 1814 DC .ROUTE Vancomycin HCl 1,000 MG ONCE ONE 05/06 1700 DC 05/06 Sodium Chloride 250 ML IV 05/06 1759 1825 Review of Systems Review of Systems: ROS limited by dementia - unable to obtain. The patient herself is not really able to provide any complaints Past History Travel History Traveled to [place] past 21 day No Medical History Blood Transfusion Hx: No Neurological: dementia, NEUROPATHY EENT: NONE Cardiovascular: CHF, hypertension, hyperlipidemia Respiratory: NONE Gastrointestinal: GERD, peptic ulcer disease, upper GI bleed, duodenitis gastritis Hepatic: NONE Renal: STAGE 4 CKD UTI Musculoskeletal: chronic back pain, osteoarthritis Psychiatric: anxiety Endocrine: hypothyroidism Blood Disorders: thrombocytopenia Cancer(s): NONE GALLERY OR MUSEUM GUIDE/Reproductive: NONE Other Medical Hx: HISTORY OF OPIATE/BENZO ABUSE Surgical History Surgical History: hysterectomy, s/p ORIF right hip Family History Relations & Conditions If Any: Relation not specified for: No pertinent family history Psychosocial History Where Do You Live? Extended Care Facility Services at Home: Nursing Primary Language: Burmese Smoking Status: Unknown If Ever Smoked Living Will? yes Functional Ability ADLs Needs Assist: dressing, eating, toileting, bathing. Ambulation: LIVES AT A NURSING CARE FACILITY IADLs Needs Assist: shopping, housework, finances, food prep, telephone, transportation, medication admin. Exam & Diagnostic Data Vital Signs and I&O Vital Signs Date Time Temp Pulse Resp B/P B/P Pulse O2 O2 Flow FiO2 Mean Ox Delivery Rate 05/07 0800 97.7 64 25 96/46 92 Nasal 2.0L Cannula 05/07 0800 93 Nasal 2.0L Cannula 05/07 0400 97 Nasal 2.0L Cannula 05/07 0000 97.6 78 22 104/52 92 Nasal 2.0L Cannula 05/06 2355 92 Nasal 2.0L Cannula 05/06 2245 69 116/57 05/06 2114 79/49 05/06 1839 98.7 67 16 93/53 95 Nasal 2.0L Cannula 05/06 1806 75 85/56 05/06 1805 95 Nasal 2.0L Cannula 05/06 1635 99.1 70 20 80/47 95 Nasal 2.0L Cannula Intake & Output 05/07 1600 05/07 0400 05/06 1600 05/06 0400 05/05 1600 05/05 0400 Intake Total 1682 1250 Output Total 650 800 Balance 1032 450 Intake, IV 1682 1250 Intake, Oral 0 Number 1 Bowel Movements Output, Urine 650 800 Patient 147 lb 140 lb Weight Weight Bed scale Bed scale Measurement Method Physical Exam: Gen - chronically ill appearing in no clear distress Head - NCAT Eyes - anicteric sclera, EOMI Neck - supple, no LAD CV - RRR, no m/r/g Chest - clear anteriorly, no w/r/r Abd - soft, NTND Upper ext - warm, no edema Lower ext - warm, purplish discoloration with some erythema on LLE, trace edema Skin - significant chronic venous stasis of b/l LE, no jaundice Neuro - alert, oriented to place but not time; not completely oriented to situation Results Pertinent Lab Results: Laboratory Tests 05/07 05/07 05/07 1059 0420 0420 Chemistry Sodium (137 - 145 mmol/L) 140 Potassium (3.5 - 5.1 mmol/L) 4.2 Chloride (98 - 107 mmol/L) 104 Carbon Dioxide (22 - 30 mmol/L) 25 Anion Gap (5 - 16) 11 BUN (7 - 17 mg/dL) 37 H Creatinine (0.5 - 1.0 mg/dL) 4.0 H Estimated GFR (>60 ml/min) 11 L Glucose (65 - 99 mg/dL) 88 Calcium (8.4 - 10.2 mg/dL) 7.0 L Phosphorus (2.5 - 4.5 mg/dL) 6.1 H Magnesium (1.6 - 2.3 mg/dL) 1.8 Iron (37 - 170 ug/dL) 38 TIBC (265 - 497 ug/dL) 290 Ferritin (11.1 - 264 ng/mL) 39.4 Total Bilirubin (0.2 - 1.3 mg/dL) 0.4 AST (14 - 36 U/L) 27 ALT (9 - 52 U/L) 28 Troponin I (< 0.11 ng/ml) Pending 0.05 Albumin (3.5 - 5.0 g/dL) 2.3 L Hematology CBC w Diff NO MAN DIFF REQ WBC (4.8 - 10.8 /CUMM) 4.0 L RBC (4.20 - 5.40 /CUMM) 3.92 L Hgb (12.0 - 16.0 G/DL) 9.1 L Hct (37 - 47 %) 28.4 L MCV (81.0 - 99.0 FL) 72.5 L MCH (27.0 - 31.0 PG) 23.2 L MCHC (33.0 - 37.0 G/DL) 32.0 L RDW (11.5 - 14.5 %) 17.1 H Plt Count (130 - 400 /CUMM) 164 MPV (7.4 - 10.4 FL) 7.4 Gran % (42.2 - 75.2 %) 73.5 Lymphocytes % (20.5 - 51.1 %) 16.1 L Monocytes % (1.7 - 9.3 %) 9.1 Eosinophils % (0 - 5 %) 0.9 Basophils % (0.0 - 2.0 %) 0.4 Absolute Granulocytes (1.4 - 6.5 /CUMM) 2.9 Absolute Lymphocytes (1.2 - 3.4 /CUMM) 0.6 L Absolute Monocytes (0.10 - 0.60 /CUMM) 0.4 Absolute Eosinophils (0.0 - 0.7 /CUMM) 0 Absolute Basophils (0.0 - 0.2 /CUMM) 0 05/07 05/06 0200 1934 Chemistry Lactic Acid Cancelled Hematology CBC w Diff NO MAN DIFF REQ WBC (4.8 - 10.8 /CUMM) 4.4 L RBC (4.20 - 5.40 /CUMM) 3.87 L Hgb (12.0 - 16.0 G/DL) 9.0 L Hct (37 - 47 %) 27.9 L MCV (81.0 - 99.0 FL) 72.0 L MCH (27.0 - 31.0 PG) 23.3 L MCHC (33.0 - 37.0 G/DL) 32.3 L RDW (11.5 - 14.5 %) 16.9 H Plt Count (130 - 400 /CUMM) 161 MPV (7.4 - 10.4 FL) 7.7 Gran % (42.2 - 75.2 %) 75.1 Lymphocytes % (20.5 - 51.1 %) 13.2 L Monocytes % (1.7 - 9.3 %) 10.8 H Eosinophils % (0 - 5 %) 0.8 Basophils % (0.0 - 2.0 %) 0.1 Absolute Granulocytes (1.4 - 6.5 /CUMM) 3.3 Absolute Lymphocytes (1.2 - 3.4 /CUMM) 0.6 L Absolute Monocytes (0.10 - 0.60 /CUMM) 0.5 Absolute Eosinophils (0.0 - 0.7 /CUMM) 0 Absolute Basophils (0.0 - 0.2 /CUMM) 0 05/06 05/06 1740 1740 Urines Urinalysis LIGHT H Urine Color (YEL,AMB,STR) YEL Urine Clarity (CLEAR) CLEAR Urine pH (5.0 - 8.0) 6.0 Ur Specific [place] (1.001 - 1.035) 1.020 Urine Protein (NEG,<30 MG/DL) NEG Urine Ketones (NEG) NEG Urine Nitrite (NEG) NEG Urine Bilirubin (NEG) NEG Urine Urobilinogen (0.1 - 1.0 EU/dl) 0.2 Ur Leukocyte Esterase (NEG) NEG Ur Microscopic SEDIMENT EXAMINED Urine RBC (0 - 5 /HPF) RARE Urine WBC (0 - 2 /HPF) RARE Ur Epithelial Cells (NONE,FEW) FEW Hyaline Casts (0/LPF) 1-3 H Urine Hemoglobin (NEG) TRACE-INTACT Ur Random Creatinine (mg/dL) 73.0 Ur Random Sodium (30 - 90 mmol/L) 28 L Ur Random Potassium (mmol/L) 42.4 Fraction Sodium Excret (<1% %) 1.4 H Urine Glucose (N MG/DL) NEG 05/06 05/06 1735 1657 Chemistry Sodium (137 - 145 mmol/L) 135 L Potassium (3.5 - 5.1 mmol/L) 4.6 Chloride (98 - 107 mmol/L) 95 L Carbon Dioxide (22 - 30 mmol/L) 28 Anion Gap (5 - 16) 11 BUN (7 - 17 mg/dL) 42 H Creatinine (0.5 - 1.0 mg/dL) 4.8 H Estimated GFR (>60 ml/min) 9 L BUN/Creatinine Ratio (7 - 25 %) 8.8 Glucose (65 - 99 mg/dL) 93 Lactic Acid (0.7 - 2.1 mmol/L) 0.8 Calcium (8.4 - 10.2 mg/dL) 7.7 L Total Bilirubin (0.2 - 1.3 mg/dL) 0.5 AST (14 - 36 U/L) 35 ALT (9 - 52 U/L) 37 Alkaline Phosphatase (<127 U/L) 37 Troponin I (< 0.11 ng/ml) 0.03 Total Protein (6.3 - 8.2 g/dL) 5.7 L Albumin (3.5 - 5.0 g/dL) 2.8 L Globulin (1.9 - 4.2 gm/dL) 2.9 Albumin/Globulin Ratio (1.1 - 2.2 %) 1.0 L TSH &T3 &Free T4 Intrp (0.270 - 4.20 uIU/mL) 1.170 Cancelled Cortisol PM Sample (1.7 - 14.1) 7.0 Hematology CBC w Diff NO MAN DIFF REQ WBC (4.8 - 10.8 /CUMM) 4.2 L RBC (4.20 - 5.40 /CUMM) 3.88 L Hgb (12.0 - 16.0 G/DL) 8.8 L Hct (37 - 47 %) 27.5 L MCV (81.0 - 99.0 FL) 70.8 L MCH (27.0 - 31.0 PG) 22.8 L MCHC (33.0 - 37.0 G/DL) 32.2 L RDW (11.5 - 14.5 %) 17.3 H Plt Count (130 - 400 /CUMM) 175 MPV (7.4 - 10.4 FL) 7.3 L Gran % (42.2 - 75.2 %) 65.7 Lymphocytes % (20.5 - 51.1 %) 21.5 Monocytes % (1.7 - 9.3 %) 10.7 H Eosinophils % (0 - 5 %) 1.8 Basophils % (0.0 - 2.0 %) 0.3 Absolute Granulocytes (1.4 - 6.5 /CUMM) 2.7 Absolute Lymphocytes (1.2 - 3.4 /CUMM) 0.9 L Absolute Monocytes (0.10 - 0.60 /CUMM) 0.4 Absolute Eosinophils (0.0 - 0.7 /CUMM) 0.1 Absolute Basophils (0.0 - 0.2 /CUMM) 0 Imaging/Other Studies: EXAM TYPE: US - US-RENAL/KIDNEY EXAMINATION: US RETROPERITONEAL COMPLETE (RENAL) CLINICAL INFORMATION: Hypotension. JETHRO. COMPARISON: Chest CTA 10/29/2012. TECHNIQUE: Real-time imaging of the kidneys and bladder. The study was performed portably. FINDINGS: RIGHT KIDNEY: 11.6 x 5.0 x 6.3 cm (SAG x AP x TRV). The kidney is normal in size, contour, and echogenicity. Renal cortical thickness is normal. No calculi or focal parenchymal lesions. No hydronephrosis. LEFT KIDNEY: Not visualized. In correlation with prior studies including chest CTA from 08/29/2013 there is marked left renal atrophy. BLADDER: Empty and not well evaluated. The ureteral jets were not seen. IMPRESSION: Normal appearance of the right kidney. Left kidney is markedly atrophic and could not be visualized. Assessment/Plan Assessment/Recommendations Assessment: Stage III CKD - nonproteinuric - likely 2/2 reduced nephron mass in the setting of an atrophic L kidney. May also be a component of age related changes. Cannot get a great history in terms of her HTN as to whether or not this may be contributing to her baseline kidney disease. Although a UA cannot rule out non- albumin protein, I think it'd be OK to hold off on a paraprotein work-up at her age with her comorbidities. JETHRO - Likely 2/2 ATN in the setting of hypotension and likely sepsis. Should note that ciprofloxacin can cause crystal induced ATN. Her SCr is getting better with IVF and improvement in her blood pressure (there may be some component of pre-renal azotemia). [place] urine sediment supportive of these diagnoses. Doubt infection related GN and/or acute interstitial nephritis which are both associated with an active urine sediment. Hypocalcemia/Hypophosphatemia - Electrolyte derangements commonly seen in JETHRO from CaXPhos deposition and decreased 25 Vit D activation. Can be fixed with calcium based phos binders. Anemia - Not clearly related to kidney disease presuming that this is all acute. Would look for other etiologies. Recommendations: -Cont supportive care/IVF resuscitation as you are -Start calcium acetate 667mg TID with meals -No dialysis need at this time Please call [phone] with ?'s
--- NOTE | 2018-05-07 12:06 | Cons- General Surgery ---
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 She was found to have what was thought to be an abscess on her Left Shoulder and surgery was consulted. The nurse reports that she aspirated some purulent fluid from proximal to the lesion. Nursing states she has also been complaining of pain in the area. They have been dressing the area with a dry sterile dressing and a tegederm. No further history is able to be obtained secondary to her dementia and sepsis. Allergies/Medications Allergies: Coded Allergies: cetirizine (UNKNOWN PER 03/26/16) diazepam (UNKNOWN PER 03/26/16) Home Med List: Acetaminophen 500 MG TABLET 1 TAB PO TID PAIN (Reported) Bisacodyl 10 MG SUPP.RECT 10 MG MS PRN IF MOM NOT EFFECTIVE (Reported) Cranberry Extract (Cranberry) 200 MG CAPSULE 1 TAB PO DAILY UTI PREVENTION ( Reported) Duloxetine HCl 60 MG CAPSULE.DR 1 CAP PO DAILY MENTAL HEALTH (Reported) Escitalopram Oxalate (Lexapro) 10 MG TABLET 1 TAB PO DAILY MENTAL HEALTH ( Reported) Fentanyl (Duragesic) 25 MCG/HOUR PATCH.TD72 1 PATCH TD Q72 PAIN (Reported) Furosemide (Lasix) 40 MG TABLET 0.75 TAB PO BID DIURETIC (Reported) Reason to Stop at ADM: HYPOTENSIVE AND ON FLUIDS Gabapentin 100 MG CAPSULE 3 CAP PO TID NEUROPATHY/PAIN (Reported) Levothyroxine Sodium (Synthroid) 88 MCG TABLET 1 TAB PO DAILY HYPOTHYROID ( Reported) Lubiprostone (Amitiza) 8 MCG CAPSULE 1 CAP PO DAILY GI (Reported) Mag Hydrox/Al Hydrox/Simeth (Mintox Suspension) 200 MG-200 MG-20 MG/5 ML ORAL.SUSP 20 ML PO Q6PRN PRN GI UPSET (Reported) Magnesium Hydroxide (Milk Of Magnesia) 400 MG/5 ML ORAL.SUSP 30 ML PO PRN CONSTIPATION (Reported) Metoprolol Tartrate 25 MG TABLET 0.5 MG PO BID [facility] Na Phos,M-B/Na Phos,Di-Ba (Fleet Enema) 19 GRAM-7 GRAM/118 ML ENEMA IF DUCOLAX INEFFECTIVE (Reported) Omeprazole 10 MG CAPSULE.DR 1 CAP PO 0600 GI (Reported) Oxycodone HCl 10 MG TABLET 0.5 TAB PO TID PAIN (Reported) Polyethylene Glycol 3350 (Miralax) 17 GM POWD.PACK 1 PAC PO DAILY GI ( Reported) dissolve in water Spironolactone 25 MG TABLET 12.5 MG PO DAILY DIURETIC (Reported) Reason to Stop at ADM: HYPOTENSIVE Current Medications: Current Medications Sig/Kian Start time Last Medication Dose Route Stop Time Status Admin Acetaminophen 325 MG Q6P PRN 05/06 2215 AC PO Calcium Acetate 667 MG WITH MEALS 05/07 1200 AC PO Ceftriaxone Sodium 1,000 MG DAILY 05/07 0900 DC IV Ceftriaxone Sodium 1,000 MG DAILY 05/07 0900 AC 05/07 IV 1014 Ceftriaxone Sodium 0 .STK-MED ONE 05/06 1813 DC .ROUTE Ceftriaxone Sodium 1,000 MG ONCE ONE 05/06 1700 DC 05/06 IV 05/06 1701 1825 Duloxetine HCl 60 MG DAILY 05/07 0900 AC 05/07 PO 0901 Escitalopram Oxalate 10 MG DAILY 05/07 0900 CAN PO Fentanyl Citrate 25 MCG Q72H 05/06 2345 AC TOP Fentanyl Citrate 50 MCG Q72H 05/06 2315 DC TOP Heparin Sodium 5,000 UNIT Q8 05/07 0600 AC 05/07 (Porcine) SC 0627 Hydrocortisone 50 MG Q8H 05/07 0730 DC 05/07 Sodium Succinate IV 0752 Levothyroxine Sodium 0.075 MG 0600 05/07 0600 CAN PO Levothyroxine Sodium 0.088 MG 0600 05/07 0600 AC 05/07 PO 0900 Omeprazole 40 MG DAILY AC 05/07 0700 AC 05/07 PO 0900 Oxycodone HCl 5 MG TID PRN 05/06 2245 DC PO Polyethylene Glycol 17 GM DAILY 05/07 0900 AC 05/07 PO 0901 Senna/Docusate Sodium 2 TAB DAILY 05/07 0900 AC 05/07 PO 0900 Sodium Chloride 1,000 ML BOLUS ONE 05/07 0200 DC 05/07 IV 05/07 0259 0200 Sodium Chloride 1,000 ML Q10H 05/06 2315 AC 05/07 IV 0901 Sodium Chloride 1,000 ML BOLUS ONE 05/06 2145 DC 05/06 IV 05/06 2244 2205 Sodium Chloride 1,000 ML BOLUS ONE 05/06 2115 DC / IV 05/06 2214 2130 Sodium Chloride 1,000 ML BOLUS ONE 05/06 1700 DC 05/06 IV 05/06 1759 1804 Vancomycin HCl 0 .STK-MED ONE 05/06 1814 DC .ROUTE Vancomycin HCl 1,000 MG ONCE ONE 05/06 1700 DC 05/06 Sodium Chloride 250 ML IV 05/06 1759 1825 Past History Medical History Blood Transfusion Hx: No Neurological: dementia, NEUROPATHY EENT: NONE Cardiovascular: CHF, hypertension, hyperlipidemia Respiratory: NONE Gastrointestinal: GERD, peptic ulcer disease, upper GI bleed, duodenitis gastritis Hepatic: NONE Renal: STAGE 4 CKD UTI Musculoskeletal: chronic back pain, osteoarthritis Psychiatric: anxiety Endocrine: hypothyroidism Blood Disorders: thrombocytopenia Cancer(s): NONE 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 Extended Care Facility Services at Home: Nursing Primary Language: Faroese Smoking Status: Unknown If Ever Smoked Living Will? yes Functional Ability ADLs Needs Assist: dressing, eating, toileting, bathing. Ambulation: LIVES AT A NURSING CARE FACILITY IADLs Needs Assist: shopping, housework, finances, food prep, telephone, transportation, medication admin. Review of Systems Review of Systems: unable to be obtained Exam & Diagnostic Data Vital Signs and I&O Vital Signs Date Time Temp Pulse Resp B/P B/P Pulse O2 O2 Flow FiO2 Mean Ox Delivery Rate 05/07 0800 97.7 64 25 96/46 92 Nasal 2.0L Cannula 05/07 0800 93 Nasal 2.0L Cannula 05/07 0400 97 Nasal 2.0L Cannula 05/07 0000 97.6 78 22 104/52 92 Nasal 2.0L Cannula 05/06 2355 92 Nasal 2.0L Cannula 05/06 2245 69 116/57 05/064 79/49 05/06 1839 98.7 67 16 93/53 95 Nasal 2.0L Cannula 05/06 1806 75 85/56 05/06 1805 95 Nasal 2.0L Cannula 05/06 1635 99.1 70 20 80/47 95 Nasal 2.0L Cannula Intake & Output 05/07 0800 05/07 0000 05/06 1600 05/06 0800 05/06 0000 Intake Total 1682 1250 Output Total 650 800 Balance 1032 450 Intake, IV 1682 1250 Intake, Oral 0 Number 1 Bowel Movements Output, Urine 650 800 Patient 147 lb 140 lb 140 lb Weight Weight Bed scale Bed scale Bed scale Measurement Method Physical Exam: General: Arousable but drowsy Left Shoulder: 0.5cm round Lesion noted over the humeral head, spongy in nature with noted vascularity, some blood expressed, circumfrentially noted ecchymosis measuring 2.5cm, non tender on my examination Last 24 Hours of Labs: Laboratory Tests 05/07 05/07 05/07 1059 0420 0420 Chemistry Sodium (137 - 145 mmol/L) 140 Potassium (3.5 - 5.1 mmol/L) 4.2 Chloride (98 - 107 mmol/L) 104 Carbon Dioxide (22 - 30 mmol/L) 25 Anion Gap (5 - 16) 11 BUN (7 - 17 mg/dL) 37 H Creatinine (0.5 - 1.0 mg/dL) 4.0 H Estimated GFR (>60 ml/min) 11 L Glucose (65 - 99 mg/dL) 88 Calcium (8.4 - 10.2 mg/dL) 7.0 L Phosphorus (2.5 - 4.5 mg/dL) 6.1 H Magnesium (1.6 - 2.3 mg/dL) 1.8 Iron (37 - 170 ug/dL) 38 TIBC (265 - 497 ug/dL) 290 Ferritin (11.1 - 264 ng/mL) 39.4 Total Bilirubin (0.2 - 1.3 mg/dL) 0.4 AST (14 - 36 U/L) 27 ALT (9 - 52 U/L) 28 Troponin I (< 0.11 ng/ml) Pending 0.05 Albumin (3.5 - 5.0 g/dL) 2.3 L Hematology CBC w Diff NO MAN DIFF REQ WBC (4.8 - 10.8 /CUMM) 4.0 L RBC (4.20 - 5.40 /CUMM) 3.92 L Hgb (12.0 - 16.0 G/DL) 9.1 L Hct (37 - 47 %) 28.4 L MCV (81.0 - 99.0 FL) 72.5 L MCH (27.0 - 31.0 PG) 23.2 L MCHC (33.0 - 37.0 G/DL) 32.0 L RDW (11.5 - 14.5 %) 17.1 H Plt Count (130 - 400 /CUMM) 164 MPV (7.4 - 10.4 FL) 7.4 Gran % (42.2 - 75.2 %) 73.5 Lymphocytes % (20.5 - 51.1 %) 16.1 L Monocytes % (1.7 - 9.3 %) 9.1 Eosinophils % (0 - 5 %) 0.9 Basophils % (0.0 - 2.0 %) 0.4 Absolute Granulocytes (1.4 - 6.5 /CUMM) 2.9 Absolute Lymphocytes (1.2 - 3.4 /CUMM) 0.6 L Absolute Monocytes (0.10 - 0.60 /CUMM) 0.4 Absolute Eosinophils (0.0 - 0.7 /CUMM) 0 Absolute Basophils (0.0 - 0.2 /CUMM) 0 05/07 05/06 0200 1934 Chemistry Lactic Acid Cancelled Hematology CBC w Diff NO MAN DIFF REQ WBC (4.8 - 10.8 /CUMM) 4.4 L RBC (4.20 - 5.40 /CUMM) 3.87 L Hgb (12.0 - 16.0 G/DL) 9.0 L Hct (37 - 47 %) 27.9 L MCV (81.0 - 99.0 FL) 72.0 L MCH (27.0 - 31.0 PG) 23.3 L MCHC (33.0 - 37.0 G/DL) 32.3 L RDW (11.5 - 14.5 %) 16.9 H Plt Count (130 - 400 /CUMM) 161 MPV (7.4 - 10.4 FL) 7.7 Gran % (42.2 - 75.2 %) 75.1 Lymphocytes % (20.5 - 51.1 %) 13.2 L Monocytes % (1.7 - 9.3 %) 10.8 H Eosinophils % (0 - 5 %) 0.8 Basophils % (0.0 - 2.0 %) 0.1 Absolute Granulocytes (1.4 - 6.5 /CUMM) 3.3 Absolute Lymphocytes (1.2 - 3.4 /CUMM) 0.6 L Absolute Monocytes (0.10 - 0.60 /CUMM) 0.5 Absolute Eosinophils (0.0 - 0.7 /CUMM) 0 Absolute Basophils (0.0 - 0.2 /CUMM) 0 05/06 05/06 1740 1740 Urines Urinalysis LIGHT H Urine Color (YEL,AMB,STR) YEL Urine Clarity (CLEAR) CLEAR Urine pH (5.0 - 8.0) 6.0 Ur Specific [place] (1.001 - 1.035) 1.020 Urine Protein (NEG,<30 MG/DL) NEG Urine Ketones (NEG) NEG Urine Nitrite (NEG) NEG Urine Bilirubin (NEG) NEG Urine Urobilinogen (0.1 - 1.0 EU/dl) 0.2 Ur Leukocyte Esterase (NEG) NEG Ur Microscopic SEDIMENT EXAMINED Urine RBC (0 - 5 /HPF) RARE Urine WBC (0 - 2 /HPF) RARE Ur Epithelial Cells (NONE,FEW) FEW Hyaline Casts (0/LPF) 1-3 H Urine Hemoglobin (NEG) TRACE-INTACT Ur Random Creatinine (mg/dL) 73.0 Ur Random Sodium (30 - 90 mmol/L) 28 L Ur Random Potassium (mmol/L) 42.4 Fraction Sodium Excret (<1% %) 1.4 H Urine Glucose (N MG/DL) NEG 05/06 05/06 1735 1657 Chemistry Sodium (137 - 145 mmol/L) 135 L Potassium (3.5 - 5.1 mmol/L) 4.6 Chloride (98 - 107 mmol/L) 95 L Carbon Dioxide (22 - 30 mmol/L) 28 Anion Gap (5 - 16) 11 BUN (7 - 17 mg/dL) 42 H Creatinine (0.5 - 1.0 mg/dL) 4.8 H Estimated GFR (>60 ml/min) 9 L BUN/Creatinine Ratio (7 - 25 %) 8.8 Glucose (65 - 99 mg/dL) 93 Lactic Acid (0.7 - 2.1 mmol/L) 0.8 Calcium (8.4 - 10.2 mg/dL) 7.7 L Total Bilirubin (0.2 - 1.3 mg/dL) 0.5 AST (14 - 36 U/L) 35 ALT (9 - 52 U/L) 37 Alkaline Phosphatase (<127 U/L) 37 Troponin I (< 0.11 ng/ml) 0.03 Total Protein (6.3 - 8.2 g/dL) 5.7 L Albumin (3.5 - 5.0 g/dL) 2.8 L Globulin (1.9 - 4.2 gm/dL) 2.9 Albumin/Globulin Ratio (1.1 - 2.2 %) 1.0 L TSH &T3 &Free T4 Intrp (0.270 - 4.20 uIU/mL) 1.170 Cancelled Cortisol PM Sample (1.7 - 14.1) 7.0 Hematology CBC w Diff NO MAN DIFF REQ WBC (4.8 - 10.8 /CUMM) 4.2 L RBC (4.20 - 5.40 /CUMM) 3.88 L Hgb (12.0 - 16.0 G/DL) 8.8 L Hct (37 - 47 %) 27.5 L MCV (81.0 - 99.0 FL) 70.8 L MCH (27.0 - 31.0 PG) 22.8 L MCHC (33.0 - 37.0 G/DL) 32.2 L RDW (11.5 - 14.5 %) 17.3 H Plt Count (130 - 400 /CUMM) 175 MPV (7.4 - 10.4 FL) 7.3 L Gran % (42.2 - 75.2 %) 65.7 Lymphocytes % (20.5 - 51.1 %) 21.5 Monocytes % (1.7 - 9.3 %) 10.7 H Eosinophils % (0 - 5 %) 1.8 Basophils % (0.0 - 2.0 %) 0.3 Absolute Granulocytes (1.4 - 6.5 /CUMM) 2.7 Absolute Lymphocytes (1.2 - 3.4 /CUMM) 0.9 L Absolute Monocytes (0.10 - 0.60 /CUMM) 0.4 Absolute Eosinophils (0.0 - 0.7 /CUMM) 0.1 Absolute Basophils (0.0 - 0.2 /CUMM) 0 Assessment/Plan Assessment/Plan This is an 88 year old female with past medical history significant for HTN, h/o NSTEMI, CKD Stage IIIA, chronic venous insufficiency, peptic ulcer disease, depression, chronic pain, and dementia who is admitted to the ICU with sepsis and hypotension. She was found to have what was thought to be an abscess on her Left Shoulder and surgery was consulted. Appears to be either traumatic or possibly a SCCA. Consider x-ray/us to r/o traumatic cause or abscess/cellulitis, if negative may need to consider biopsy to r/o skin cancer. Case d/w Dr. Cervantes. Will follow peripherally, please call with any problems, questions, concerns or change in clinical picture. Thank you for allowing us to participate in this patients care. Problem List: 1. Shoulder lesion, left Consult Acknowledgment - Thank you for your consult request. Helen WOODSDevante 05/07/18 8873: Assessment/Plan Consult Acknowledgment - Thank you for your consult request. Attending MD Review Statement Attending Statement Attending MD Statement: examined this patient, discuss w/resident/PA/ASSOCIATE ACCOUNT MANAGER, agreed w/resident/PA/ASSOCIATE ACCOUNT MANAGER, reviewed EMR data (avail), reviewed images Attending Assessment/Plan: Patient seen and examined, agree with above. Left shoulder lesion examined, no evidence of purulent drainage, no obvious palpable fluctuance/induration. Karla ?~ 1cm mass vs collection. Unlikely source of infection, could have been a small cyst that drained but unclear, no acute surgical intervention, care as per ICU team, reconsult as needed.
[2018-05-07 16:00] VITALS: BP 102/60
--- NOTE | 2018-05-07 16:21 | ULTRASOUND REPORT ---
EXAMINATION: US SUPERFICIAL IMAGING, EXTREMITY CLINICAL INFORMATION: Fluctuating area, minimal pus expressed. Please assess the left deltoid area. Abscess versus soft tissues. COMPARISON: None TECHNIQUE: Focused ultrasound of the region of clinical concern in the left upper biceps region was performed. FINDINGS: In region of the patient's clinical concern, there is a 1.7 x 0.6 x 1.5 cm superficial complex avascular fluid collection with internal echogenic foci, suggestive of calcifications. On the images submitted for review, the collection appears to be within the superficial soft tissues, overlying the muscle bundles and separate from the glenohumeral joint. Finding may represent a ganglion cyst with internal calcifications versus a complex infected fluid collection. IMPRESSION: Complex superficial fluid collection in the superficial soft tissues of the left shoulder, possibly a ganglion cyst with internal calcifications versus a complex infected fluid collection. Findings are nonspecific. Further assessment with MRI scan can be performed
--- NOTE | 2018-05-07 17:15 | Cons- Infect Disease ---
General Information and HPI Consulting Request Date of Consult: 05/07/18 Requested By: Chance Gonazlez MD Reason for Consult: Rule out sepsis Source of Information: patient, old records Exam Limitations: dementia, poor historian History of Present Illness: This is an 88-year-old woman, [place] [facility] resident, with mild dementia, hypertension, CHF, chronic renal insufficiency, hypothyroidism, osteoarthritis with chronic back pain, chronic thrombocytopenia, peptic ulcer disease and chronic venous stasis changes of both lower extremities, status post multiple hospitalizations for cellulitis, with bacteremia secondary to Pseudomonas and Group G strep in the past, last hospitalized at [facility] 1 1/2 years prior to admission with a left leg cellulitis, treated with Unasyn and discharged on Augmentin, with MRSA isolated from a left shoulder abscess culture 3 months prior to admission, with no further details regarding this available, apparently treated recently at another institution for a urinary tract infection, admitted on May 06 after she was sent to the emergency room because of an altered mental status and hypotension. On admission she was afebrile, with a blood pressure of 80/47. Laboratory data revealed a white blood cell count of 4.6, BUN/creatinine 42 and 4.8, with normal liver enzymes. Urinalysis rare RBC/rare WBCs. Chest x- ray was negative. She was given 1 dose of Vancomycin and begun on Ceftriaxone. She was also given 3 L of fluid. She has remained afebrile overnight. This morning she was noted to have purulent drainage from her left shoulder, with an ultrasound revealing a complex superficial fluid collection, measuring 1.7 x 0.6 x 1.5 cm, in the superficial soft tissues of the left shoulder. Presently she does not offer any complaints. Allergies/Medications Allergies: Coded Allergies: cetirizine (UNKNOWN PER 03/26/16) diazepam (UNKNOWN PER 03/26/16) Home Med List: Acetaminophen 500 MG TABLET 1 TAB PO TID PAIN (Reported) Bisacodyl 10 MG SUPP.RECT 10 MG SC PRN IF MOM NOT EFFECTIVE (Reported) Cranberry Extract (Cranberry) 200 MG CAPSULE 1 TAB PO DAILY UTI PREVENTION ( Reported) Duloxetine HCl 60 MG CAPSULE.DR 1 CAP PO DAILY MENTAL HEALTH (Reported) Escitalopram Oxalate (Lexapro) 10 MG TABLET 1 TAB PO DAILY MENTAL HEALTH ( Reported) Fentanyl (Duragesic) 25 MCG/HOUR PATCH.TD72 1 PATCH TD Q72 PAIN (Reported) Furosemide (Lasix) 40 MG TABLET 0.75 TAB PO BID DIURETIC (Reported) Reason to Stop at ADM: HYPOTENSIVE AND ON FLUIDS Gabapentin 100 MG CAPSULE 3 CAP PO TID NEUROPATHY/PAIN (Reported) Levothyroxine Sodium (Synthroid) 88 MCG TABLET 1 TAB PO DAILY HYPOTHYROID ( Reported) Lubiprostone (Amitiza) 8 MCG CAPSULE 1 CAP PO DAILY GI (Reported) Mag Hydrox/Al Hydrox/Simeth (Mintox Suspension) 200 MG-200 MG-20 MG/5 ML ORAL.SUSP 20 ML PO Q6PRN PRN GI UPSET (Reported) Magnesium Hydroxide (Milk Of Magnesia) 400 MG/5 ML ORAL.SUSP 30 ML PO PRN CONSTIPATION (Reported) Metoprolol Tartrate 25 MG TABLET 0.5 MG PO BID HEART HEALTH Na Phos,M-B/Na Phos,Di-Ba (Fleet Enema) 19 GRAM-7 GRAM/118 ML ENEMA IF DUCOLAX INEFFECTIVE (Reported) Omeprazole 10 MG CAPSULE.DR 1 CAP PO 0600 GI (Reported) Oxycodone HCl 10 MG TABLET 0.5 TAB PO TID PAIN (Reported) Polyethylene Glycol 3350 (Miralax) 17 GM POWD.PACK 1 PAC PO DAILY GI ( Reported) dissolve in water Spironolactone 25 MG TABLET 12.5 MG PO DAILY DIURETIC (Reported) Reason to Stop at ADM: HYPOTENSIVE Past History Travel History Traveled to [place] past 21 day No Medical History Blood Transfusion Hx: No Neurological: dementia, NEUROPATHY EENT: NONE Cardiovascular: CHF, chronic venous insuff, hypertension, hyperlipidemia Respiratory: NONE Gastrointestinal: GERD, peptic ulcer disease, upper GI bleed, duodenitis gastritis Hepatic: NONE Renal: STAGE 4 CKD UTI Musculoskeletal: chronic back pain, osteoarthritis Psychiatric: anxiety Endocrine: hypothyroidism Blood Disorders: thrombocytopenia Cancer(s): NONE 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 Extended Care Facility Services at Home: Nursing Primary Language: Greenlandic Smoking Status: Unknown If Ever Smoked Living Will? yes Functional Ability ADLs Needs Assist: dressing, eating, toileting, bathing. Ambulation: LIVES AT A NURSING CARE FACILITY IADLs Needs Assist: shopping, housework, finances, food prep, telephone, transportation, medication admin. Review of Systems Review of Systems All Other Systems: Reviewed and Negative Exam & Diagnostic Data Last 24 Hrs of Vital Signs/I&O Vital Signs Date Time Temp Pulse Resp B/P B/P Pulse O2 O2 Flow FiO2 Mean Ox Delivery Rate 05/07 1200 94 Nasal 2.0L Cannula 05/07 0800 97.7 64 25 96/46 92 Nasal 2.0L Cannula 05/07 0800 93 Nasal 2.0L Cannula 05/07 0400 97 Nasal 2.0L Cannula 05/07 0000 97.6 78 22 104/52 92 Nasal 2.0L Cannula 05/06 2355 92 Nasal 2.0L Cannula 05/06 2245 69 116/57 05/06 2114 79/49 05/06 1839 98.7 67 16 93/53 95 Nasal 2.0L Cannula 05/06 1806 75 85/56 05/06 1805 95 Nasal 2.0L Cannula Intake & Output 05/07 1600 05/07 0800 05/07 0000 Intake Total 2009 1682 1250 Output Total 750 650 800 Balance 1260 1032 450 Intake, IV 1290 1682 1250 Intake, Oral 720 0 Number 1 1 Bowel Movements Output, Urine 750 650 800 Patient 147 lb 140 lb 140 lb Weight Weight Bed scale Bed scale Bed scale Measurement Method Physical Exam Other Physical Findings: She is awake and alert in no acute distress. She is afebrile. Skin reveals no rash. HEENT exam is negative. Neck is supple with no adenopathy. Lungs are clear. Heart regular rhythm with a 2/6 systolic murmur. Abdomen is soft, nontender with positive bowel sounds. Back no CVA tenderness. Extremities chronic venous stasis changes both lower extremities, with left leg erythema, edema, warmth and mild tenderness; pulses 2+ and equal; left shoulder wound, with no surrounding erythema. Neuro is without focality. Perez catheter is in place. Last 24 Hours of Lab Results: Laboratory Tests 05/07 05/07 05/07 1059 0420 0420 Chemistry Sodium (137 - 145 mmol/L) 140 Potassium (3.5 - 5.1 mmol/L) 4.2 Chloride (98 - 107 mmol/L) 104 Carbon Dioxide (22 - 30 mmol/L) 25 Anion Gap (5 - 16) 11 BUN (7 - 17 mg/dL) 37 H Creatinine (0.5 - 1.0 mg/dL) 4.0 H Estimated GFR (>60 ml/min) 11 L Glucose (65 - 99 mg/dL) 88 Calcium (8.4 - 10.2 mg/dL) 7.0 L Phosphorus (2.5 - 4.5 mg/dL) 6.1 H Magnesium (1.6 - 2.3 mg/dL) 1.8 Iron (37 - 170 ug/dL) 38 TIBC (265 - 497 ug/dL) 290 Ferritin (11.1 - 264 ng/mL) 39.4 Total Bilirubin (0.2 - 1.3 mg/dL) 0.4 AST (14 - 36 U/L) 27 ALT (9 - 52 U/L) 28 Troponin I (< 0.11 ng/ml) 0.06 0.05 Albumin (3.5 - 5.0 g/dL) 2.3 L Hematology CBC w Diff NO MAN DIFF REQ WBC (4.8 - 10.8 /CUMM) 4.0 L RBC (4.20 - 5.40 /CUMM) 3.92 L Hgb (12.0 - 16.0 G/DL) 9.1 L Hct (37 - 47 %) 28.4 L MCV (81.0 - 99.0 FL) 72.5 L MCH (27.0 - 31.0 PG) 23.2 L MCHC (33.0 - 37.0 G/DL) 32.0 L RDW (11.5 - 14.5 %) 17.1 H Plt Count (130 - 400 /CUMM) 164 MPV (7.4 - 10.4 FL) 7.4 Gran % (42.2 - 75.2 %) 73.5 Lymphocytes % (20.5 - 51.1 %) 16.1 L Monocytes % (1.7 - 9.3 %) 9.1 Eosinophils % (0 - 5 %) 0.9 Basophils % (0.0 - 2.0 %) 0.4 Absolute Granulocytes (1.4 - 6.5 /CUMM) 2.9 Absolute Lymphocytes (1.2 - 3.4 /CUMM) 0.6 L Absolute Monocytes (0.10 - 0.60 /CUMM) 0.4 Absolute Eosinophils (0.0 - 0.7 /CUMM) 0 Absolute Basophils (0.0 - 0.2 /CUMM) 0 05/07 05/06 0200 1934 Chemistry Lactic Acid Cancelled Hematology CBC w Diff NO MAN DIFF REQ WBC (4.8 - 10.8 /CUMM) 4.4 L RBC (4.20 - 5.40 /CUMM) 3.87 L Hgb (12.0 - 16.0 G/DL) 9.0 L Hct (37 - 47 %) 27.9 L MCV (81.0 - 99.0 FL) 72.0 L MCH (27.0 - 31.0 PG) 23.3 L MCHC (33.0 - 37.0 G/DL) 32.3 L RDW (11.5 - 14.5 %) 16.9 H Plt Count (130 - 400 /CUMM) 161 MPV (7.4 - 10.4 FL) 7.7 Gran % (42.2 - 75.2 %) 75.1 Lymphocytes % (20.5 - 51.1 %) 13.2 L Monocytes % (1.7 - 9.3 %) 10.8 H Eosinophils % (0 - 5 %) 0.8 Basophils % (0.0 - 2.0 %) 0.1 Absolute Granulocytes (1.4 - 6.5 /CUMM) 3.3 Absolute Lymphocytes (1.2 - 3.4 /CUMM) 0.6 L Absolute Monocytes (0.10 - 0.60 /CUMM) 0.5 Absolute Eosinophils (0.0 - 0.7 /CUMM) 0 Absolute Basophils (0.0 - 0.2 /CUMM) 0 05/06 05/06 1740 1740 Urines Urinalysis LIGHT H Urine Color (YEL,AMB,STR) YEL Urine Clarity (CLEAR) CLEAR Urine pH (5.0 - 8.0) 6.0 Ur Specific [place] (1.001 - 1.035) 1.020 Urine Protein (NEG,<30 MG/DL) NEG Urine Ketones (NEG) NEG Urine Nitrite (NEG) NEG Urine Bilirubin (NEG) NEG Urine Urobilinogen (0.1 - 1.0 EU/dl) 0.2 Ur Leukocyte Esterase (NEG) NEG Ur Microscopic SEDIMENT EXAMINED Urine RBC (0 - 5 /HPF) RARE Urine WBC (0 - 2 /HPF) RARE Ur Epithelial Cells (NONE,FEW) FEW Hyaline Casts (0/LPF) 1-3 H Urine Hemoglobin (NEG) TRACE-INTACT Ur Random Creatinine (mg/dL) 73.0 Ur Random Sodium (30 - 90 mmol/L) 28 L Ur Random Potassium (mmol/L) 42.4 Fraction Sodium Excret (<1% %) 1.4 H Urine Glucose (N MG/DL) NEG 05/06 1735 Chemistry Sodium (137 - 145 mmol/L) 135 L Potassium (3.5 - 5.1 mmol/L) 4.6 Chloride (98 - 107 mmol/L) 95 L Carbon Dioxide (22 - 30 mmol/L) 28 Anion Gap (5 - 16) 11 BUN (7 - 17 mg/dL) 42 H Creatinine (0.5 - 1.0 mg/dL) 4.8 H Estimated GFR (>60 ml/min) 9 L BUN/Creatinine Ratio (7 - 25 %) 8.8 Glucose (65 - 99 mg/dL) 93 Lactic Acid (0.7 - 2.1 mmol/L) 0.8 Calcium (8.4 - 10.2 mg/dL) 7.7 L Total Bilirubin (0.2 - 1.3 mg/dL) 0.5 AST (14 - 36 U/L) 35 ALT (9 - 52 U/L) 37 Alkaline Phosphatase (<127 U/L) 37 Troponin I (< 0.11 ng/ml) 0.03 Total Protein (6.3 - 8.2 g/dL) 5.7 L Albumin (3.5 - 5.0 g/dL) 2.8 L Globulin (1.9 - 4.2 gm/dL) 2.9 Albumin/Globulin Ratio (1.1 - 2.2 %) 1.0 L TSH &T3 &Free T4 Intrp (0.270 - 4.20 uIU/mL) 1.170 Cortisol PM Sample (1.7 - 14.1) 7.0 Hematology CBC w Diff NO MAN DIFF REQ WBC (4.8 - 10.8 /CUMM) 4.2 L RBC (4.20 - 5.40 /CUMM) 3.88 L Hgb (12.0 - 16.0 G/DL) 8.8 L Hct (37 - 47 %) 27.5 L MCV (81.0 - 99.0 FL) 70.8 L MCH (27.0 - 31.0 PG) 22.8 L MCHC (33.0 - 37.0 G/DL) 32.2 L RDW (11.5 - 14.5 %) 17.3 H Plt Count (130 - 400 /CUMM) 175 MPV (7.4 - 10.4 FL) 7.3 L Gran % (42.2 - 75.2 %) 65.7 Lymphocytes % (20.5 - 51.1 %) 21.5 Monocytes % (1.7 - 9.3 %) 10.7 H Eosinophils % (0 - 5 %) 1.8 Basophils % (0.0 - 2.0 %) 0.3 Absolute Granulocytes (1.4 - 6.5 /CUMM) 2.7 Absolute Lymphocytes (1.2 - 3.4 /CUMM) 0.9 L Absolute Monocytes (0.10 - 0.60 /CUMM) 0.4 Absolute Eosinophils (0.0 - 0.7 /CUMM) 0.1 Absolute Basophils (0.0 - 0.2 /CUMM) 0 Last 24 Hours of [place] Results: Blood cultures x 2 May 06 negative Urine culture May 06 negative Diagnostic Data Recent Imaging Findings: Chest x-ray May 06 negative Renal ultrasound May 07 atrophic left kidney with no hydronephrosis of the right kidney Ultrasound of the left shoulder May 07 reveals a complex superficial fluid collection in the superficial soft tissues of the left shoulder Assessment/Plan Assessment/Plan Impression: This is an 88-year-old woman, [place] [facility] resident, with mild dementia, chronic renal insufficiency and chronic venous stasis changes of both lower extremities, status post multiple hospitalizations for cellulitis, with bacteremia secondary to Pseudomonas and Group G strep in the past, found to have MRSA from a left shoulder abscess culture 3 months prior to admission, with further details not available, apparently treated recently at another institution for a urinary tract infection, admitted on May 06 because of an altered mental status and hypotension, found to be afebrile and hypotensive with a normal white blood cell count and acute renal failure. Her hypotension may be multifactorial, in part secondary to dehydration, with a markedly elevated creatinine, which is improving with fluids, and possible sepsis, though she has remained afebrile with a normal white blood cell count. She does have evidence of a left lower extremity cellulitis and, given her previous episodes of cellulitis, presumably secondary to chronic venous stasis changes of the lower extremities, she is clearly at increased risk for this. Of note her previous episodes of cellulitis have presented with fever and either leukocytosis or bandemia, neither of which is present currently. The left shoulder process is of unclear significance. She has minimal inflammation but a culture from 3 months prior to admission was positive for MRSA; therefore, given the apparent chronicity of this process, further evaluation of this may be warranted, as suggested by Radiology. Suggestion: 1. Obtain further details from from Dr. Madsen regarding her left shoulder abscess 2. Further evaluation of her left shoulder, for example MRI, based on above 3. Elevation of the left lower extremity 4. Follow-up final cultures 5. Continue Ceftriaxone pending above Consult Acknowledgment - Thank you for your consult request.
[2018-05-08] VITALS: BP 101/51
[2018-05-08 04:57] LABS: ABSOLUTE BASOPHIL COUNT 0 /CUMM (0.0-0.2); ABSOLUTE EOSINOPHIL COUNT 0 /CUMM (0.0-0.7); ABSOLUTE GRANULOCYTE CT 4.3 /CUMM (1.4-6.5); ABSOLUTE LYMPH COUNT 0.7 /CUMM (1.2-3.4); ABSOLUTE MONOCYTE COUNT 0.4 /CUMM (0.10-0.60); BASOPHIL % 0.2 % (0.0-2.0); EOSINOPHIL % 0.3 % (0-5); GRANULOCYTE % 78.1 % (42.2-75.2); HEMATOCRIT 28.2 % (37-47); MEAN CORPUSCULAR HGB CONC 32.1 G/DL (33.0-37.0); MEAN CORPUSCULAR VOLUME 71.8 FL (81.0-99.0); MEAN PLATELET VOLUME 7.7 FL (7.4-10.4); PLATELET COUNT 166 /CUMM (130-400); RBC DISTRIBUTION WIDTH 17.4 % (11.5-14.5); RED BLOOD CELL CT 3.93 /CUMM (4.20-5.40); WHITE BLOOD CELL COUNT 5.5 /CUMM (4.8-10.8)
--- NOTE | 2018-05-08 07:31 | PN- Resident CRCU ---
Derrick WYNN,Oni 05/08/18 0730: Subjective HPI/CRCU Issues: Hypertension Lower extremity cellulitis 24 Hour Events: Appears more alert and oriented compared to previous day Afebrile overnight with improving white count Hypotension seems to have resolved Objective Vital Signs & I&O Last 8 Hrs of Vitals and I&O: Laboratory Tests 05/08 0420 Chemistry Sodium (137 - 145 mmol/L) 140 Potassium (3.5 - 5.1 mmol/L) 3.7 Chloride (98 - 107 mmol/L) 107 Carbon Dioxide (22 - 30 mmol/L) 22 Anion Gap (5 - 16) 10 BUN (7 - 17 mg/dL) 36 H Creatinine (0.5 - 1.0 mg/dL) 3.2 H Estimated GFR (>60 ml/min) 14 L Glucose (65 - 99 mg/dL) 89 Calcium (8.4 - 10.2 mg/dL) 7.3 L Phosphorus (2.5 - 4.5 mg/dL) 5.3 H Magnesium (1.6 - 2.3 mg/dL) 1.6 Total Bilirubin (0.2 - 1.3 mg/dL) 0.3 AST (14 - 36 U/L) 22 ALT (9 - 52 U/L) 25 Albumin (3.5 - 5.0 g/dL) 2.2 L Hematology CBC w Diff NO MAN DIFF REQ WBC (4.8 - 10.8 /CUMM) 5.5 RBC (4.20 - 5.40 /CUMM) 3.93 L Hgb (12.0 - 16.0 G/DL) 9.1 L Hct (37 - 47 %) 28.2 L MCV (81.0 - 99.0 FL) 71.8 L MCH (27.0 - 31.0 PG) 23.0 L MCHC (33.0 - 37.0 G/DL) 32.1 L RDW (11.5 - 14.5 %) 17.4 H Plt Count (130 - 400 /CUMM) 166 MPV (7.4 - 10.4 FL) 7.7 Gran % (42.2 - 75.2 %) 78.1 H Lymphocytes % (20.5 - 51.1 %) 13.4 L Monocytes % (1.7 - 9.3 %) 8.0 Eosinophils % (0 - 5 %) 0.3 Basophils % (0.0 - 2.0 %) 0.2 Absolute Granulocytes (1.4 - 6.5 /CUMM) 4.3 Absolute Lymphocytes (1.2 - 3.4 /CUMM) 0.7 L Absolute Monocytes (0.10 - 0.60 /CUMM) 0.4 Absolute Eosinophils (0.0 - 0.7 /CUMM) 0 Absolute Basophils (0.0 - 0.2 /CUMM) 0 Intake & Output 05/08 1600 Intake Total 800 Output Total 950 Balance -150 Intake, IV 180 Intake, Oral 620 Number 0 Bowel Movements Output, Urine 950 Patient 68.606 kg Weight Weight Bed scale Measurement Method Exam General Appearance: alert, awake Neck: normal inspection, full range of motion, no JVD Respiratory: very faint crackles heard bilaterally on the upper lung allen Cardiovascular: regular rate/rhythm, systolic murmur Gastrointestinal: soft, non-tender Extremities: chronic venous stasis changes, however left leg appears more erythematous and tender compared to the right when consistent with cellulitic features Current Medications: Current Medications Sig/Kian Start time Last Medication Dose Route Stop Time Status Admin Acetaminophen 1,000 MG ONCE ONE 05/07 2115 DC 05/07 N/A 1 UNIT IV 05/07 Acetaminophen 325 MG Q6P PRN 05/06 2215 AC PO Calcium Acetate 667 MG WITH MEALS 05/07 1200 AC 05/08 PO 1727 Ceftriaxone Sodium 1,000 MG DAILY 05/07 0900 AC 05/08 IV 0840 Duloxetine HCl 60 MG DAILY 05/07 09 AC 05/08 PO 0840 Fentanyl Citrate 25 MCG Q72H 05/06 2345 AC TOP Ferrous Sulfate 325 MG BID 05/08 2100 AC PO Gabapentin 300 MG Q8 05/08 1400 DC PO Gabapentin 100 MG Q12 05/08 1200 AC 05/08 PO 1233 Heparin Sodium 5,000 UNIT Q8 05/07 0600 AC 05/08 (Porcine) SC 1403 Levothyroxine Sodium 0.088 MG 0605/07 0600 AC 05/08 PO 0551 Magnesium Oxide 400 MG ONE ONE 05/08 1300 DC 05/08 PO 05/08 1301 1403 Omeprazole 40 MG DAILY AC 05/07 0700 AC 05/08 PO 0558 Polyethylene Glycol 17 GM DAILY 05/07 09 AC 05/08 PO 0840 Senna/Docusate Sodium 2 TAB DAILY 05/07 0900 AC 05/08 PO 0840 Sodium Chloride 1,000 ML Q10H 05/06 2315 DC 05/08 IV 0415 Impression/Plan Impression/Problem List Impression: 88-year-old lady with a past medical history significant for hypertension, CHF, CAD, hypothyroidism, also arthritis, peptic ulcer disease, chronic venous stasis change on both lower extremities, currently residing at [facility] presented to [facility] ED for evaluation of altered mental status and progressive decrease of oral intake in the past few days. On presentation patient is found to have hypotension with systolic in the 80s in addition to altered mental status. Patient was admitted to ICU for close monitoring of hypertensive with possible infection as the cause. CXR and UA unremarkable. Impression and plan Respiratory: Earlier today patient reported an increase of shortness of breath, physical examination did reveal slight crackles however not that remarkable. Chest x-ray was obtained for concern of pulmonary edema in the context of IV fluid hydration. However results are not remarkably consistent with pulmonary edema. We'll turn off IV fluid hydration and continue to maintain sats above 90 % through supplementation. Infection: White count is improved status post ceftriaxone day 2, with no fevers since admission. The left lower extremity cellulitic area appears to be improving. Regarding the left deltoid possible abscess area, Spoke to Dr. Madsen who took care of the patient was [facility]. He stated that in January and abscess formation which was diagnosed as a suture granuloma was drained and grew MRSA. Antonio Laura MD perform the drainage recommended the patient follow up with orthopedics since the area was suggestive of recent orthopedic workup, however patient was not sent for that follow-up. Even though it's unlikely that the left deltoid area is the source of patient's current infection nevertheless in this to be followed up on workup will consider getting an MRI and continue getting surgical open orthopedic consult. Cardiovascular: Her hypotension is most likely secondary to dehydration as the BUN/creatinine and acute on chronic rise of creatinine is suggestive of prerenal etiology from dehydration. She did improve after IV fluids hydration. In the setting of a positive fluid balance of 6 L and blood pressure being stable we'll hold off on any more IV fluids and encourage liberal by mouth intake. Hematology: Chronic anemia with an MCV of 72 suggestive of microcytic anemia. Unclear whether this is iron deficiency or CKD (this normally presents with an normocytic anemia). There is no acute blood loss right now. We'll continue to monitor H&H. We'll also supplement with iron pills. Metabolic: JETHRO superimposed on CKD as evident by an elevated creatinine of 5.0 on presentation when compared to average baseline of 1.2. Acute kidney injury is probably secondary to acute tubular necrosis secondary to infection/sepsis as evident by urine sediment and a FeNa of greater than 1 dehydration. There is a component of prerenal azotemia given that she improved with IV fluid hydration. Phosphatemia is more consistent with worsening kidney function. We'll continue with current management of phosphate binder. Alimentary; we'll continue regular diet. Neurology; no focal neurological deficit. Awake and alert oriented to person and place only. Will avoid any delirium triggers such as constipation, pain, unnecessary nursing intervention.. Problem List: 1. Cellulitis 2. CKD (chronic kidney disease) Pain Ratin Pain Location: Generalized. Tomorrow's Labs & Rationales: icu bundle cbc Plan DVT/Prophylaxis: mechanical, pharmacological Chance Gonzalez MD 05/08/18 3387: Attending MD Review Statement Attending Sign Off Attending Cosign Statement: I have: examined this patient, reviewed [facility] EMR data, personally reviewd images, discussd w/resident/PA/OCULAR CARE TECHNOLOGIST, discussed mgmt plan w/jhonny, discussed mgmt plan w/CM, discussed mgmt plan w/pt, agreed w/resident/PA/OCULAR CARE TECHNOLOGIST, amended to note. Other Findings: I have: examined this patient, reviewed [facility] EMR data, personally reviewd images, discussd w/resident/PA/OCULAR CARE TECHNOLOGIST, discussed mgmt plan w/jhonny, discussed mgmt plan w/CM, discussed mgmt plan w/pt, agreed w/resident/PA/OCULAR CARE TECHNOLOGIST, amended to note. Impression 88 year old woman * RESOLVED Hypotension - secondary to dehydration and pre-renal azotemia ( hypovolemia) and also consistent with severe sepsis secondary to most likely cellulitis of LE, also a left shoulder purulence and fluctuation * IMPROVING JETHRO likely secondary to dehydration/pre-renal azotemia * anemia Plan -continue ceftriaxone, awaiting records regarding workup for L shoulder and considering MRI -f/u ID recommendations -surgical input appreciated -nephrology consultation appreciated, improving creatinine -now eating, IVF held -f/u ECHO given systolic murmur DVT prophylaxis at all times DG to gen med TTS 35 min TTS 40 min Per the ER documentation - discussion documented that patient is DNR/DNI
[2018-05-08 08:00] VITALS: BP 100/46
--- NOTE | 2018-05-08 09:33 | PN- Infect Dx ---
Subjective Subjective: Afebrile. She has various complaints but her history is unreliable Objective Last 24 Hrs of Vital Signs/I&O Vital Signs Date Time Temp Pulse Resp B/P B/P Pulse O2 O2 Flow FiO2 Mean Ox Delivery Rate 05/08 08 98.0 69 24 100/46 95 Nasal 2.0L Cannula 05/08 0800 92 Nasal 3.0L Cannula 05/08 0400 95 Nasal 2.0L Cannula 05/08 0253 93 Nasal 2.0L Cannula 05/08 0000 98.3 67 14 101/51 95 Nasal 2.0L Cannula 05/08 0000 95 Nasal 2.0L Cannula 05/07 2000 94 Nasal 2.0L Cannula 05/07 1600 98.6 73 18 102/60 99 Nasal 2.0L Cannula 05/07 1600 95 Nasal 2.0L Cannula 05/07 1200 94 Nasal 2.0L Cannula Intake & Output 05/08 1600 05/08 0800 05/08 0000 Intake Total 1332 1579 Output Total 300 600 Balance 1032 979 Intake, IV 1092 1129 Intake, Oral 240 450 Number 1 2 Bowel Movements Output, Urine 300 600 Patient 145 lb Weight Physical Exam Other Physical Findings: She appears comfortable in no acute distress Lungs bibasilar crackles Heart regular rhythm with a 2/6 systolic murmur Abdomen is soft, questionable tenderness on palpation diffusely, with no guarding or rebound, positive bowel sounds Back no CVA tenderness Extremities left shoulder wound with expressible exudate, with no surrounding erythema and no tenderness to palpation; good range of motion of the left shoulder; decreased erythema and edema of the left leg Perez catheter remains in place Results Last 24 Hours of Lab Results: Laboratory Tests 05/08 05/07 0420 1059 Chemistry Sodium (137 - 145 mmol/L) 140 Potassium (3.5 - 5.1 mmol/L) 3.7 Chloride (98 - 107 mmol/L) 107 Carbon Dioxide (22 - 30 mmol/L) 22 Anion Gap (5 - 16) 10 BUN (7 - 17 mg/dL) 36 H Creatinine (0.5 - 1.0 mg/dL) 3.2 H Estimated GFR (>60 ml/min) 14 L Glucose (65 - 99 mg/dL) 89 Calcium (8.4 - 10.2 mg/dL) 7.3 L Phosphorus (2.5 - 4.5 mg/dL) 5.3 H Magnesium (1.6 - 2.3 mg/dL) 1.6 Total Bilirubin (0.2 - 1.3 mg/dL) 0.3 AST (14 - 36 U/L) 22 ALT (9 - 52 U/L) 25 Troponin I (< 0.11 ng/ml) 0.06 Albumin (3.5 - 5.0 g/dL) 2.2 L Hematology CBC w Diff NO MAN DIFF REQ WBC (4.8 - 10.8 /CUMM) 5.5 RBC (4.20 - 5.40 /CUMM) 3.93 L Hgb (12.0 - 16.0 G/DL) 9.1 L Hct (37 - 47 %) 28.2 L MCV (81.0 - 99.0 FL) 71.8 L MCH (27.0 - 31.0 PG) 23.0 L MCHC (33.0 - 37.0 G/DL) 32.1 L RDW (11.5 - 14.5 %) 17.4 H Plt Count (130 - 400 /CUMM) 166 MPV (7.4 - 10.4 FL) 7.7 Gran % (42.2 - 75.2 %) 78.1 H Lymphocytes % (20.5 - 51.1 %) 13.4 L Monocytes % (1.7 - 9.3 %) 8.0 Eosinophils % (0 - 5 %) 0.3 Basophils % (0.0 - 2.0 %) 0.2 Absolute Granulocytes (1.4 - 6.5 /CUMM) 4.3 Absolute Lymphocytes (1.2 - 3.4 /CUMM) 0.7 L Absolute Monocytes (0.10 - 0.60 /CUMM) 0.4 Absolute Eosinophils (0.0 - 0.7 /CUMM) 0 Absolute Basophils (0.0 - 0.2 /CUMM) 0 Last 24 Hours of Khang Results: Blood cultures x 2 May 06 negative Urine culture May 06 negative Assessment/Plan ID Impression: Stable, with temperatures and white blood cell count remaining normal, though she remains borderline hypotensive, on Ceftriaxone, Day 2 of treatment for possible sepsis, with the left lower extremity cellulitis the most likely source. The left shoulder wound is of unclear etiology, with a scar noted in that area, suggesting that she has had previous surgery, though she is unable to provide any history regarding this, and with a culture obtained 3 months prior to admission positive for MRSA. Her renal function is improving with fluids. Suggestion: 1. Obtain further details regarding her left shoulder from her primary care physician 2. Would consider MRI of the left shoulder based on above 3. Elevation of the left lower extremity 4. Remove Perez catheter 5. Continue Ceftriaxone
--- NOTE | 2018-05-08 09:34 | RADIOLOGY REPORT ---
EXAMINATION: XR PORTABLE CHEST CLINICAL INFORMATION: Pulmonary edema versus pneumonia. Increased oxygen demand and shortness of breath. Status post IV fluid hydration. COMPARISON: Several prior chest x-rays, most recent of which is dated 05/06/2018. TECHNIQUE: Portable AP semierect view of the chest was obtained. FINDINGS: Evaluation is limited due to difficulties with patient cooperation. The patient's chin projects over the right upper lung and the left lower chest is not fully included on the [id number] of this exam. The patient is rotated. The cardiomediastinal silhouette appears similar to the previous study, likely within normal limits in size. There is ectasia and tortuosity of the aorta again seen. Multiple EKG leads overlie the chest. Compared to prior exam, there has been development of diffuse interstitial pulmonary opacities, consistent with pulmonary edema. There is also increased reticular and dense opacity in the left lung base, possibly due to atelectasis or pneumonia. Small bilateral pleural effusions are seen, left greater than right. No pneumothorax is noted. There is diffuse osteopenia. Bony structures are poorly assessed. IMPRESSION: 1. Limited exam. 2. Findings are suspicious for interval development of pulmonary edema with small bilateral pleural effusions, left greater than right. 3. Left basilar atelectasis or consolidation also seen, new compared to prior exam.
--- NOTE | 2018-05-08 10:25 | PN- Nephrology ---
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 May also be a component of age related changes. Cannot get a great history in terms of her HTN as to whether or not this may be contributing to her baseline kidney disease. Although a UA cannot rule out non- albumin protein, I think it'd be OK to hold off on a paraprotein work-up at her age with her comorbidities. JETHRO - Likely 2/2 ATN in the setting of hypotension and likely sepsis. Should note that ciprofloxacin can cause crystal induced ATN. [place] urine sediment supportive of these diagnoses. The fact that she is developing pulm edema argues against significant degree of pre-renal azotemia - IVF have been stopped. Hypocalcemia/Hypophosphatemia - Electrolyte derangements commonly seen in JETHRO from CaXPhos deposition and decreased 25 Vit D activation. Both are improving ( Ca once corrected for albumin is within the normal range). Anemia - Iron deficient. Suggestion: -Agree with stopping IVF -Would decrease dose of gabapentin given JETHRO - can cause drowsiness and asterixis -Cont calcium acetate 667mg TID with meals -Would supplement iron - can do PO given active infection and the fact that her kidney disease is acute - would guaiac stool as well -No dialysis need at this time Please call [phone] with ?'s Subjective Subjective: SCr down to 3.2 2000cc UOP No new micro BP 100/46 Evaluated by Surgery - not thought to be infected Being followed by ID - LLE cellulitis thought to be most likely source New pulm edema on Chest X-ray - ?feels SOB Objective Vital Signs and I&Os Vital Signs Date Time Temp Pulse Resp B/P B/P Pulse O2 O2 Flow FiO2 Mean Ox Delivery Rate 05/08 0800 98.0 69 24 100/46 95 Nasal 2.0L Cannula 05/08 0800 92 Nasal 3.0L Cannula 05/08 0400 95 Nasal 2.0L Cannula 05/08 0253 93 Nasal 2.0L Cannula 05/08 0000 98.3 67 14 101/51 95 Nasal 2.0L Cannula 05/08 0000 95 Nasal 2.0L Cannula 05/07 2000 94 Nasal 2.0L Cannula 05/07 1600 98.6 73 18 102/60 99 Nasal 2.0L Cannula 05/07 1600 95 Nasal 2.0L Cannula 05/07 1200 94 Nasal 2.0L Cannula Intake & Output 05/08 1600 05/08 0400 05/07 1600 05/07 0400 05/06 1600 05/06 0400 Intake Total 1332 1579 3692 1250 Output Total 519 400 9540 800 Balance 2194 129 3074 450 Intake, IV 1092 1129 2972 1250 Intake, Oral 240 450 720 Number 1 2 2 Bowel Movements Output, Urine 569 805 4903 800 Patient 151 lb 147 lb 140 lb Weight Weight Bed scale Bed scale Bed scale Measurement Method Physical Exam: Gen - OK appearing HEENT - JVP visible CV - RRR, no m/r/g Chest - clear anteriorly Abd - soft, NTND Ext - trace edema, chronic skin changes, LLE less erythematous Neuro - alert, not oriented to place or time Current Medications: Current Medications Sig/Kian Start time Last Medication Dose Route Stop Time Status Admin Acetaminophen 1,000 MG ONCE ONE 05/07 2115 [place] 05/07 N/A 1 UNIT IV 05/07 Acetaminophen 325 MG Q6P PRN 05/06 2215 PO Calcium Acetate 667 MG WITH MEALS 05/07 1200 AC 05/08 PO 0750 Ceftriaxone Sodium 1,000 MG DAILY 05/07 09 AC 05/08 IV 0840 Duloxetine HCl 60 MG DAILY 05/07 09 AC 05/08 PO 0840 Fentanyl Citrate 25 MCG Q72H 05/06 2345 AC TOP Gabapentin 300 MG Q8 05/08 1400 AC PO Heparin Sodium 5,000 UNIT Q8 05/07 06 AC 05/08 (Porcine) SC 0552 Levothyroxine Sodium 0.088 MG 05/07 0600 05/08 PO 0551 Omeprazole 40 MG DAILY AC 05/07 07 AC 05/08 PO 0558 Polyethylene Glycol 17 GM DAILY 05/07 09 AC 05/08 PO 0840 Senna/Docusate Sodium 2 TAB DAILY 05/07 09 AC 05/08 PO 0840 Sodium Chloride 1,000 ML Q10H 05/06 2315 DC 05/08 IV 0415 Results Pertinent Lab Results: Laboratory Tests 05/08 05/07 05/07 0420 1059 0420 Chemistry Sodium (137 - 145 mmol/L) 140 Potassium (3.5 - 5.1 mmol/L) 3.7 Chloride (98 - 107 mmol/L) 107 Carbon Dioxide (22 - 30 mmol/L) 22 Anion Gap (5 - 16) 10 BUN (7 - 17 mg/dL) 36 H Creatinine (0.5 - 1.0 mg/dL) 3.2 H Estimated GFR (>60 ml/min) 14 L Glucose (65 - 99 mg/dL) 89 Calcium (8.4 - 10.2 mg/dL) 7.3 L Phosphorus (2.5 - 4.5 mg/dL) 5.3 H Magnesium (1.6 - 2.3 mg/dL) 1.6 Iron (37 - 170 ug/dL) 38 TIBC (265 - 497 ug/dL) 290 Ferritin (11.1 - 264 ng/mL) 39.4 Total Bilirubin (0.2 - 1.3 mg/dL) 0.3 AST (14 - 36 U/L) 22 ALT (9 - 52 U/L) 25 Troponin I (< 0.11 ng/ml) 0.06 0.05 Albumin (3.5 - 5.0 g/dL) 2.2 L Hematology CBC w Diff NO MAN DIFF REQ WBC (4.8 - 10.8 /CUMM) 5.5 RBC (4.20 - 5.40 /CUMM) 3.93 L Hgb (12.0 - 16.0 G/DL) 9.1 L Hct (37 - 47 %) 28.2 L MCV (81.0 - 99.0 FL) 71.8 L MCH (27.0 - 31.0 PG) 23.0 L MCHC (33.0 - 37.0 G/DL) 32.1 L RDW (11.5 - 14.5 %) 17.4 H Plt Count (130 - 400 /CUMM) 166 MPV (7.4 - 10.4 FL) 7.7 Gran % (42.2 - 75.2 %) 78.1 H Lymphocytes % (20.5 - 51.1 %) 13.4 L Monocytes % (1.7 - 9.3 %) 8.0 Eosinophils % (0 - 5 %) 0.3 Basophils % (0.0 - 2.0 %) 0.2 Absolute Granulocytes (1.4 - 6.5 /CUMM) 4.3 Absolute Lymphocytes (1.2 - 3.4 /CUMM) 0.7 L Absolute Monocytes (0.10 - 0.60 /CUMM) 0.4 Absolute Eosinophils (0.0 - 0.7 /CUMM) 0 Absolute Basophils (0.0 - 0.2 /CUMM) 0 05/07 05/07 0420 0200 Chemistry Sodium (137 - 145 mmol/L) 140 Potassium (3.5 - 5.1 mmol/L) 4.2 Chloride (98 - 107 mmol/L) 104 Carbon Dioxide (22 - 30 mmol/L) 25 Anion Gap (5 - 16) 11 BUN (7 - 17 mg/dL) 37 H Creatinine (0.5 - 1.0 mg/dL) 4.0 H Estimated GFR (>60 ml/min) 11 L Glucose (65 - 99 mg/dL) 88 Calcium (8.4 - 10.2 mg/dL) 7.0 L Phosphorus (2.5 - 4.5 mg/dL) 6.1 H Magnesium (1.6 - 2.3 mg/dL) 1.8 Total Bilirubin (0.2 - 1.3 mg/dL) 0.4 AST (14 - 36 U/L) 27 ALT (9 - 52 U/L) 28 Albumin (3.5 - 5.0 g/dL) 2.3 L Hematology CBC w Diff NO MAN DIFF REQ NO MAN DIFF REQ WBC (4.8 - 10.8 /CUMM) 4.0 L 4.4 L RBC (4.20 - 5.40 /CUMM) 3.92 L 3.87 L Hgb (12.0 - 16.0 G/DL) 9.1 L 9.0 L Hct (37 - 47 %) 28.4 L 27.9 L MCV (81.0 - 99.0 FL) 72.5 L 72.0 L MCH (27.0 - 31.0 PG) 23.2 L 23.3 L MCHC (33.0 - 37.0 G/DL) 32.0 L 32.3 L RDW (11.5 - 14.5 %) 17.1 H 16.9 H Plt Count (130 - 400 /CUMM) 164 161 MPV (7.4 - 10.4 FL) 7.4 7.7 Gran % (42.2 - 75.2 %) 73.5 75.1 Lymphocytes % (20.5 - 51.1 %) 16.1 L 13.2 L Monocytes % (1.7 - 9.3 %) 9.1 10.8 H Eosinophils % (0 - 5 %) 0.9 0.8 Basophils % (0.0 - 2.0 %) 0.4 0.1 Absolute Granulocytes (1.4 - 6.5 /CUMM) 2.9 3.3 Absolute Lymphocytes (1.2 - 3.4 /CUMM) 0.6 L 0.6 L Absolute Monocytes (0.10 - 0.60 /CUMM) 0.4 0.5 Absolute Eosinophils (0.0 - 0.7 /CUMM) 0 0 Absolute Basophils (0.0 - 0.2 /CUMM) 0 0 05/06 05/06 05/06 1934 1740 1740 Chemistry Lactic Acid Cancelled Urines Urinalysis LIGHT H Urine Color (YEL,AMB,STR) YEL Urine Clarity (CLEAR) CLEAR Urine pH (5.0 - 8.0) 6.0 Ur Specific [place] (1.001 - 1.035) 1.020 Urine Protein (NEG,<30 MG/DL) NEG Urine Ketones (NEG) NEG Urine Nitrite (NEG) NEG Urine Bilirubin (NEG) NEG Urine Urobilinogen (0.1 - 1.0 EU/dl) 0.2 Ur Leukocyte Esterase (NEG) NEG Ur Microscopic SEDIMENT EXAMINED Urine RBC (0 - 5 /HPF) RARE Urine WBC (0 - 2 /HPF) RARE Ur Epithelial Cells (NONE,FEW) FEW Hyaline Casts (0/LPF) 1-3 H Urine Hemoglobin (NEG) TRACE-INTACT Ur Random Creatinine (mg/dL) 73.0 Ur Random Sodium (30 - 90 mmol/L) 28 L Ur Random Potassium (mmol/L) 42.4 Fraction Sodium Excret (<1% %) 1.4 H Urine Glucose (N MG/DL) NEG 05/06 05/06 1735 1657 Chemistry Sodium (137 - 145 mmol/L) 135 L Potassium (3.5 - 5.1 mmol/L) 4.6 Chloride (98 - 107 mmol/L) 95 L Carbon Dioxide (22 - 30 mmol/L) 28 Anion Gap (5 - 16) 11 BUN (7 - 17 mg/dL) 42 H Creatinine (0.5 - 1.0 mg/dL) 4.8 H Estimated GFR (>60 ml/min) 9 L BUN/Creatinine Ratio (7 - 25 %) 8.8 Glucose (65 - 99 mg/dL) 93 Lactic Acid (0.7 - 2.1 mmol/L) 0.8 Calcium (8.4 - 10.2 mg/dL) 7.7 L Total Bilirubin (0.2 - 1.3 mg/dL) 0.5 AST (14 - 36 U/L) 35 ALT (9 - 52 U/L) 37 Alkaline Phosphatase (<127 U/L) 37 Troponin I (< 0.11 ng/ml) 0.03 Total Protein (6.3 - 8.2 g/dL) 5.7 L Albumin (3.5 - 5.0 g/dL) 2.8 L Globulin (1.9 - 4.2 gm/dL) 2.9 Albumin/Globulin Ratio (1.1 - 2.2 %) 1.0 L TSH &T3 &Free T4 Intrp (0.270 - 4.20 uIU/mL) 1.170 Cancelled Cortisol PM Sample (1.7 - 14.1) 7.0 Hematology CBC w Diff NO MAN DIFF REQ WBC (4.8 - 10.8 /CUMM) 4.2 L RBC (4.20 - 5.40 /CUMM) 3.88 L Hgb (12.0 - 16.0 G/DL) 8.8 L Hct (37 - 47 %) 27.5 L MCV (81.0 - 99.0 FL) 70.8 L MCH (27.0 - 31.0 PG) 22.8 L MCHC (33.0 - 37.0 G/DL) 32.2 L RDW (11.5 - 14.5 %) 17.3 H Plt Count (130 - 400 /CUMM) 175 MPV (7.4 - 10.4 FL) 7.3 L Gran % (42.2 - 75.2 %) 65.7 Lymphocytes % (20.5 - 51.1 %) 21.5 Monocytes % (1.7 - 9.3 %) 10.7 H Eosinophils % (0 - 5 %) 1.8 Basophils % (0.0 - 2.0 %) 0.3 Absolute Granulocytes (1.4 - 6.5 /CUMM) 2.7 Absolute Lymphocytes (1.2 - 3.4 /CUMM) 0.9 L Absolute Monocytes (0.10 - 0.60 /CUMM) 0.4 Absolute Eosinophils (0.0 - 0.7 /CUMM) 0.1 Absolute Basophils (0.0 - 0.2 /CUMM) 0 Imaging/Other Studies: EXAM TYPE: US - US-RENAL/KIDNEY EXAMINATION: US RETROPERITONEAL COMPLETE (RENAL) CLINICAL INFORMATION: Hypotension. JETHRO. COMPARISON: Chest CTA 10/29/2012. TECHNIQUE: Real-time imaging of the kidneys and bladder. The study was performed portably. FINDINGS: RIGHT KIDNEY: 11.6 x 5.0 x 6.3 cm (SAG x AP x TRV). The kidney is normal in size, contour, and echogenicity. Renal cortical thickness is normal. No calculi or focal parenchymal lesions. No hydronephrosis. LEFT KIDNEY: Not visualized. In correlation with prior studies including chest CTA from 08/29/2013 there is marked left renal atrophy. BLADDER: Empty and not well evaluated. The ureteral jets were not seen. IMPRESSION: Normal appearance of the right kidney. Left kidney is markedly atrophic and could not be visualized. Shoulder US IMPRESSION: Complex superficial fluid collection in the superficial soft tissues of the left shoulder, possibly a ganglion cyst with internal calcifications versus a complex infected fluid collection. Findings are nonspecific. Further assessment with MRI scan can be performed
--- NOTE | 2018-05-08 12:30 | ECHOCARDIOGRAM REPORT ---
MIHAI DUMONT Age: 88 : 1930 Gender: F Exam Date: 05/07/2018 16:11 Exam Location: [facility] Ht (in): 64 Wt (lb): 140 BSA: 1.70 BP: 104 / 52 Ordering Physician: Daniel Pugh MD Referring Physician: Daniel Pugh MD Technologist: Lashanda Burkett KIMBERLY Room Number: 107 Indications: Hypotension Rhythm: Sinus Technical Quality: Fair FINDINGS Left Ventricle Small left ventricular cavity. Mild concentric left ventricular hypertrophy. No obvious regional wall motion abnormalities. Normal left ventricular ejection fraction visually estimated at >65%. Abnormal relaxation filling pattern of the left ventricle for age (stage 1 diastolic dysfunction). Mildly increased resting left ventricular outflow tract velocity (1.5 m/s). Right Ventricle Normal right ventricular size and function. Right Atrium Normal right atrial size. Left Atrium Left atrial size at the upper limits of normal. Mitral Valve Mild mitral annular calcification. Mitral valve mildly thickened. Mild mitral regurgitation. Aortic Valve Aortic valve not well visualized. Diffuse thickening of the aortic valve cusps with reduced excursion. Mild to moderate aortic stenosis. No aortic regurgitation. Tricuspid Valve Structurally normal tricuspid valve. Mild tricuspid regurgitation. Moderate pulmonary hypertension.right ventricular systolic pressure estimated to be elevated at 53 mmHg. Pulmonic Valve Pulmonic valve not well visualized. No pulmonic regurgitation. Pericardium No pericardial effusion. Great Vessels Normal size aortic root. Dilated inferior vena cava. CONCLUSIONS Small left ventricular cavity. Mild concentric left ventricular hypertrophy. Normal left ventricular ejection fraction visually estimated at > 65%. Abnormal relaxation filling pattern of the left ventricle for age (stage 1 diastolic dysfunction). Mildly increased resting left ventricular outflow tract velocity (1.5 m/s). Normal right ventricular size and function. Normal right atrial size. Left atrial size at the upper limits of normal. Mild mitral regurgitation. Mild to moderate aortic stenosis. Mild tricuspid regurgitation. Moderate pulmonary hypertension. Dilated inferior vena cava. Vahid Cleary M.D. (Electronically Signed) Final Date: 08 May 2018 12:25 MEASUREMENTS (Male / Female) Normal Values 2D ECHO LV Diastolic Diameter PLAX 3.5 cm 4.2 - 5.9 / 3.9 - 5.3 cm LV Systolic Diameter PLAX 1.7 cm 2.1 - 4.0 cm LV Fractional Shortening PLAX 51.4 % 25 - 46 % LV Ejection Fraction 2D Teich 83.5 % IVS Diastolic Thickness 1.2 cm LVPW Diastolic Thickness 1.2 cm LV Relative Wall Thickness 0.7 RV Internal Dim ED PLAX 2.8 cm 1.9 - 3.8 cm LVOT Diameter 1.8 cm Aortic Root Diameter 3.3 cm LA Systolic Diameter LX 4.0 cm 3.0 - 4.0 / 2.7 - 3.8 cm LA Volume 41.0 cm 18 - 58 / 22 - 52 cm DOPPLER AV Peak Velocity 273.0 cm/s AV Peak Gradient 29.8 mmHg AV Mean Velocity 179.0 cm/s AV Mean Gradient 16.0 mmHg AV Velocity Time Integral 53.6 cm LVOT Peak Velocity 150.0 cm/s LVOT Peak Gradient 9.0 mmHg LVOT Mean Velocity 95.4 cm/s LVOT Mean Gradient 4.0 mmHg LVOT Velocity Time Integral 33.9 cm LVOT Stroke Volume 86.3 cm AV Area Cont Eq vti 1.6 cm AV Area Cont Eq pk 1.4 cm MV Peak Velocity 156.0 cm/s MV Peak Gradient 9.7 mmHg MV Mean Velocity 80.9 cm/s MV Mean Gradient 3.0 mmHg Mitral E Point Velocity 75.5 cm/s Mitral A Point Velocity 83.4 cm/s Mitral E to A Ratio 0.9 MV PHT Velocity 161.0 cm/s MV Deceleration [place] 627.0 cm/s MV Pressure Half Time 77.0 ms MV Area PHT 2.9 cm MV Deceleration Time 272.0 ms TR Peak Velocity 347.0 cm/s TR Peak Gradient 48.2 mmHg Right Atrial Pressure 5.0 mmHg Pulmonary Artery Systolic Pressure 53.2 mmHg Right Ventricular Systolic Pressure 53.2 mmHg PV Peak Velocity 93.0 cm/s PV Peak Gradient 3.5 mmHg PV Mean Velocity 59.5 cm/s PV Mean Gradient 2.0 mmHg PV Velocity Time Integral 17.5 cm LV E' Lateral Velocity 7.1 cm/s Mitral E to LV E' Lateral Ratio 10.6 LV E' Septal Velocity 6.5 cm/s Mitral E to LV E' Septal Ratio 11.6
[2018-05-08 16:00] VITALS: BP 126/58
[2018-05-09] VITALS: BP 122/70
[2018-05-09 05:42] LABS: ABSOLUTE BASOPHIL COUNT 0 /CUMM (0.0-0.2); ABSOLUTE EOSINOPHIL COUNT 0 /CUMM (0.0-0.7); ABSOLUTE GRANULOCYTE CT 4.9 /CUMM (1.4-6.5); ABSOLUTE LYMPH COUNT 0.9 /CUMM (1.2-3.4); ABSOLUTE MONOCYTE COUNT 0.6 /CUMM (0.10-0.60); BASOPHIL % 0.2 % (0.0-2.0); EOSINOPHIL % 0.5 % (0-5); GRANULOCYTE % 76.9 % (42.2-75.2); HEMATOCRIT 29.8 % (37-47); MEAN CORPUSCULAR HGB 23.1 PG (27.0-31.0); MEAN CORPUSCULAR HGB CONC 32.1 G/DL (33.0-37.0); MEAN PLATELET VOLUME 7.8 FL (7.4-10.4); PLATELET COUNT 182 /CUMM (130-400); RBC DISTRIBUTION WIDTH 17.5 % (11.5-14.5); RED BLOOD CELL CT 4.14 /CUMM (4.20-5.40); WHITE BLOOD CELL COUNT 6.3 /CUMM (4.8-10.8)
--- NOTE | 2018-05-09 07:41 | PN- Housestaff ---
Derrick WYNN,Oni 05/09/18 0741: Subjective Follow-up For: Sepsis JETHRO Subjective: Seen and examined at bedside. Alert and oriented to person and place. She remains afebrile with improvement white count. She states she is cold, denies sob,cp/palpitation. Review of Systems Constitutional: Reports: see HPI. Objective Last 24 Hrs of Vital Signs/I&O Vital Signs Date Time Temp Pulse Resp B/P B/P Pulse O2 O2 Flow FiO2 Mean Ox Delivery Rate 05/09 08 Nasal 3.0L Cannula 05/09 08 97.8 68 18 130/60 94 Nasal 3.0L Cannula 05/09 0000 94 Nasal 3.0L Cannula 05/09 0000 97.3 18 122/70 94 Nasal 3.0L Cannula 05/08 1600 90 Nasal 3.0L Cannula 05/08 1600 97.1 84 20 126/58 90 Nasal 3.0L Cannula Intake & Output 05/09 1600 05/09 0800 05/09 0000 Intake Total 240 200 600 Output Total 850 1200 1100 Balance -610 -1000 -500 Intake, IV 100 Intake, Oral 240 100 600 Number 1 Bowel Movements Output, Urine 850 1200 1100 Physical Exam General Appearance: Alert, Cooperative Cardiovascular: Regular Rate, Normal S1, Normal S2, No Murmurs Lungs: Clear to Auscultation, Normal Air Movement Abdomen: Normal Bowel Sounds, Soft, No Tenderness Neurological: Normal Speech, Strength at 5/5 X4 Ext, Normal Tone, Sensation Intact Assessment/Plan Assessment: Impression Respiratory: improvement in respiratory status, patient is now able to tolerate and saturate above 90% on room air. Infection: White count is stable however patient continues to be febrile. Will increase ceftriaxone 2 g and pursue MRI of the lumbar spine given that the patient had work done on her back, will also obtain LIZANDRO for endocarditis given that the patient is growing gram-positive strep. Regarding her left shoulder, it is unlikely that this is also some of infection. Spoke to surgery who recalls doing an I&D on an outpatient basis, Also spoke to orthopedics office who stated that they so the patient's a referral but never did any surgical intervention. Given that was limited information of patient's history and the POA not able to give us any detail, MRI was not done. We'll however give patient instruction upon discharge to follow-up with surgery and orthopedics to evaluate for any interval changes on the left deltoid area which may ever risk of becoming an abscess. Cardiovascular: Stable with no episodes medication yesterday as yesterday of hypertension. She has a fluid negative balance of half a liter in the past shift we'll continue to maintain a negative fluid balance to prevent any risk of pulmonary edema. Hematology: Chronic anemia with an MCV of 72 suggestive of microcytic anemia. Unclear whether this is iron deficiency or CKD (this normally presents with an normocytic anemia). There is no acute blood loss right now. We'll continue to monitor H&H. We'll also supplement with iron pills. Metabolic: JETHRO superimposed on CKD as evident by an elevated creatinine of 5.0 on presentation when compared to average baseline of 1.2. Now improving Alimentary; we'll continue regular diet. Neurology; no focal neurological deficit. Awake and alert oriented to person and place only. Will avoid any delirium triggers such as constipation, pain, unnecessary nursing intervention. Problem List: 1. Cellulitis 2. Acute kidney injury Pain Ratin Pain Location: generalized Pain Goal: Remain pain free Pain Plan: per pathway Tomorrow's Labs & Rationales: bep-Chance Madrgial MD 05/09/18 0902: Attending MD Review Statement Attending Statement Attending MD Statement: examined this patient, discuss w/resident/PA/GEAR CUTTING MACHINE OPERATOR, agreed w/resident/PA/GEAR CUTTING MACHINE OPERATOR, discussed with family, reviewed EMR data (avail), discussed with nursing, discussed with case mgmt, reviewed images, amended to note Attending Assessment/Plan: I have: examined this patient, reviewed [facility] EMR data, personally reviewd images, discussd w/resident/PA/GEAR CUTTING MACHINE OPERATOR, discussed mgmt plan w/jhonny, discussed mgmt plan w/CM, discussed mgmt plan w/pt, agreed w/resident/PA/GEAR CUTTING MACHINE OPERATOR, amended to note. Impression 88 year old woman * cellulitis of LE, also a left shoulder purulence and fluctuation * IMPROVING JETHRO likely secondary to dehydration/pre-renal azotemia * anemia Plan -continue ceftriaxone -ortho evaluation of L shoulder and MRI -f/u ID recommendations -surgical input appreciated -nephrology consultation appreciated, improving creatinine DVT prophylaxis at all times gen med hold Per the ER documentation - discussion documented that patient is DNR/DNI Phosphatemia is more consistent with worsening kidney function. We'll continue with current management of phosphate binder. Alimentary; we'll continue regular diet. Neurology; no focal neurological deficit. Awake and alert oriented to person and place only. Will avoid any delirium triggers such as constipation, pain, unnecessary nursing intervention.. Cardiovascular: Her hypotension is most likely secondary to dehydration as the BUN/creatinine and acute on chronic rise of creatinine is suggestive of prerenal etiology from dehydration. She did improve after IV fluids hydration. In the setting of a positive fluid balance of 6 L and blood pressure being stable we'll hold off on any more IV fluids and encourage liberal by mouth intake. Hematology: Chronic anemia with an MCV of 72 suggestive of microcytic anemia. Unclear whether this is iron deficiency or CKD (this normally presents with an normocytic anemia). There is no acute blood loss right now. We'll continue to monitor H&H. We'll also supplement with iron pills. Metabolic: JETHRO superimposed on CKD as evident by an elevated creatinine of 5.0 on presentation when compared to average baseline of 1.2. Acute kidney injury is probably secondary to acute tubular necrosis secondary to infection/sepsis as evident by urine sediment and a FeNa of greater than 1 dehydration. There is a component of prerenal azotemia given that she improved with IV fluid hydration. Phosphatemia is more consistent with worsening kidney function. We'll continue with current management of phosphate binder. Alimentary; we'll continue regular diet. Neurology; no focal neurological deficit. Awake and alert oriented to person and place only. Will avoid any delirium triggers such as constipation, pain, unnecessary nursing intervention.. Carlos WYNN,Chance 05/09/18 0902: Attending MD Review Statement Attending Statement Attending MD Statement: examined this patient, discuss w/resident/PA/GEAR CUTTING MACHINE OPERATOR, agreed w/resident/PA/GEAR CUTTING MACHINE OPERATOR, discussed with family, reviewed EMR data (avail), discussed with nursing, discussed with case mgmt, reviewed images, amended to note Attending Assessment/Plan: I have: examined this patient, reviewed [facility] EMR data, personally reviewd images, discussd w/resident/PA/GEAR CUTTING MACHINE OPERATOR, discussed mgmt plan w/jhonny, discussed mgmt plan w/CM, discussed mgmt plan w/pt, agreed w/resident/PA/GEAR CUTTING MACHINE OPERATOR, amended to note. Impression 88 year old woman * cellulitis of LE, also a left shoulder purulence and fluctuation * IMPROVING JETHRO likely secondary to dehydration/pre-renal azotemia * anemia Plan -continue ceftriaxone -ortho evaluation of L shoulder and MRI -f/u ID recommendations -surgical input appreciated -nephrology consultation appreciated, improving creatinine DVT prophylaxis at all times gen med hold Per the ER documentation - discussion documented that patient is DNR/DNI
[2018-05-09 08:00] VITALS: BP 130/60
--- NOTE | 2018-05-09 09:50 | PN- Infect Dx ---
Subjective Subjective: Afebrile. She complains of abdominal pain and of feeling cold. Objective Last 24 Hrs of Vital Signs/I&O Vital Signs Date Time Temp Pulse Resp B/P B/P Pulse O2 O2 Flow FiO2 Mean Ox Delivery Rate 05/09 08 Nasal 3.0L Cannula 05/09 08 97.8 68 18 130/60 94 Nasal 3.0L Cannula 05/09 0000 94 Nasal 3.0L Cannula 05/09 0000 97.3 18 122/70 94 Nasal 3.0L Cannula 05/08 1600 90 Nasal 3.0L Cannula 05/08 1600 97.1 84 20 126/58 90 Nasal 3.0L Cannula Intake & Output 05/09 1600 05/09 0800 05/09 0000 Intake Total 200 600 Output Total 400 1200 1100 Balance -400 -1000 -500 Intake, IV 100 Intake, Oral 100 600 Output, Urine 400 1200 1100 Physical Exam Other Physical Findings: She is awake and alert, appearing comfortable and in no acute distress Lungs decreased breath sounds at the left base Heart regular rhythm with a 1/6 systolic murmur Abdomen is soft, with no obvious tenderness, positive bowel sounds Extremities decreased erythema and edema of the left lower extremity; left shoulder wound, with fibrinous exudate expressed, with no surrounding inflammation Perez catheter remains in place Results Last 24 Hours of Lab Results: Laboratory Tests 05/09 0500 Chemistry Sodium (137 - 145 mmol/L) 142 Potassium (3.5 - 5.1 mmol/L) 3.1 L Chloride (98 - 107 mmol/L) 106 Carbon Dioxide (22 - 30 mmol/L) 25 Anion Gap (5 - 16) 10 BUN (7 - 17 mg/dL) 30 H Creatinine (0.5 - 1.0 mg/dL) 2.7 H Estimated GFR (>60 ml/min) 17 L Glucose (65 - 99 mg/dL) 88 Calcium (8.4 - 10.2 mg/dL) 7.8 L Phosphorus (2.5 - 4.5 mg/dL) 3.7 Magnesium (1.6 - 2.3 mg/dL) 1.6 Total Bilirubin (0.2 - 1.3 mg/dL) 0.5 AST (14 - 36 U/L) 20 ALT (9 - 52 U/L) 29 Albumin (3.5 - 5.0 g/dL) 2.4 L Hematology CBC w Diff NO MAN DIFF REQ WBC (4.8 - 10.8 /CUMM) 6.3 RBC (4.20 - 5.40 /CUMM) 4.14 L Hgb (12.0 - 16.0 G/DL) 9.6 L Hct (37 - 47 %) 29.8 L MCV (81.0 - 99.0 FL) 72.0 L MCH (27.0 - 31.0 PG) 23.1 L MCHC (33.0 - 37.0 G/DL) 32.1 L RDW (11.5 - 14.5 %) 17.5 H Plt Count (130 - 400 /CUMM) 182 MPV (7.4 - 10.4 FL) 7.8 Gran % (42.2 - 75.2 %) 76.9 H Lymphocytes % (20.5 - 51.1 %) 13.7 L Monocytes % (1.7 - 9.3 %) 8.7 Eosinophils % (0 - 5 %) 0.5 Basophils % (0.0 - 2.0 %) 0.2 Absolute Granulocytes (1.4 - 6.5 /CUMM) 4.9 Absolute Lymphocytes (1.2 - 3.4 /CUMM) 0.9 L Absolute Monocytes (0.10 - 0.60 /CUMM) 0.6 Absolute Eosinophils (0.0 - 0.7 /CUMM) 0 Absolute Basophils (0.0 - 0.2 /CUMM) 0 Last 24 Hours of Khang Results: Blood cultures x 2 May 06 negative Recent Imaging Studies: Chest x-ray May 08 reveals diffuse interstitial pulmonary opacities, with increased reticular and dense opacity at the left lung base; small bilateral pleural effusions, left greater than right Assessment/Plan ID Impression: Stable, with temperatures and white blood cell count remaining normal, on Ceftriaxone, Day 3 of treatment for possible sepsis, most likely secondary to a left lower extremity cellulitis, with decreasing erythema and edema of the left leg. The left shoulder wound is of unclear etiology. She apparently has had previous shoulder surgery, but no further details about this are available, and a culture obtained 3 months prior to admission positive for MRSA suggests that this is a chronic process. Her renal function continues to improve, though her chest x-ray is now revealing fluid overload. Suggestion: 1. Would pursue MRI of the left shoulder 2. Further management of her fluid status per Renal 3. Remove Perez catheter 4. Discontinue Ceftriaxone 5. Begin Keflex 500 mg p.o. every 8 hours Geri Sanderson MD is covering until May 13
[2018-05-09 15:09] VITALS: BP 140/70
[2018-05-09 22:26] VITALS: BP 110/62
[2018-05-10 01:02] VITALS: BP 124/58
[2018-05-10 06:46] VITALS: BP 110/60
--- NOTE | 2018-05-10 09:38 | PN- Housestaff ---
See Addendum Subjective Follow-up For: Hypotension, sepsis Subjective: No acute events overnight, afebrile. Patient is complaining of generalized body pain, states her current pain medications are not effective. Denies fever, night sweats, chills. Patient is asking when she can go home Review of Systems Constitutional: Reports: see HPI. Objective Last 24 Hrs of Vital Signs/I&O Vital Signs Date Time Temp Pulse Resp B/P B/P Pulse O2 O2 Flow FiO2 Mean Ox Delivery Rate 05/10 0800 Nasal 2.0L Cannula 05/10 0646 98.0 60 18 110/60 93 Nasal Cannula 05/10 0102 98.3 66 20 124/58 93 Nasal 2.0L Cannula 05/10 0000 93 Nasal 2.0L Cannula 05/09 2226 97.5 62 18 110/62 94 05/09 1600 Nasal 2.0L Cannula 05/09 1509 98.2 79 20 140/70 91 Nasal 2.0L Cannula Intake & Output 05/10 1600 05/10 0800 05/10 0000 Intake Total 250 250 Output Total 100 700 Balance 150 -450 Intake, IV 10 10 Intake, Oral 240 240 Number 1 2 Bowel Movements Output, Urine 100 700 Physical Exam General Appearance: Alert, Oriented X3, Cooperative Skin: Left shoulder covered in dressing, minimal sanginous discharge present on dressing. No flucutations appreciated HEENT: Atraumatic, EOMI Cardiovascular: Normal S1, Normal S2, Systolic murmure 2/6 appreciated Lungs: Clear to Auscultation, Normal Air Movement Abdomen: Normal Bowel Sounds, Soft, No Tenderness Extremities: Normal Pulses, LLE and foot non-pitting edema , stasis dermatitis bilat. Assessment/Plan Assessment: 88-year-old lady with significant past medical history for hypertension, CKD stage IIIA, chronic venous insufficiency, peptic ulcer, depression, chronic pain on fentanyl, and dementia brought in from [place] for assessment of change in mental status and hypotension. Problem List: 1. Hypotension 2. Anemia 3. JETHRO on CKD Stage IIIA 4. LLE Cellulitis 2/2 Stasis Dermatitis 5. Sepsis #Hypotension: On initial admit patient patient SBP was in the 80s, anti- hypertensive medications were held. Patient SBP has been ranging between 110s- 140s since yesterday Plan #Anemia: H/H on admission 9.0/27.9. Most likely due to iron deficiency, no active source of bleeding. Stable and asymptomatic. plan -Ferrous Sulfate 325mg #JETHRO on CKD stage IIIa: Creatinine on admission 3.2. Renal ultrasound on showed normal appearance of right kidney, left kidney is markedly atrophic and cannot be visualized. Renal function is improving, creatinine today 1.9 Plan: - Continue to monitor #HypoKalemia: Plan -Kdur 60mEq # left lower extremity cellulitis secondary to stasis dermatitis: Plan -PO Keflex 500 mg every 8 #18 -Lubriderm lotion Plan to discharge patient home today, patient is medically stable. Patient will be discharged back to [place] with Keflex and 500 mg p.o. every 8 #18, ferrous sulfate 325 mg p.o. twice daily. Patient will follow-up with PCP, strategic intelligence officer. Patient will follow up with Ortho regarding left shoulder, uncertain at this time if patient has hardware cannot perform MRI. Problem List: 1. Cellulitis Pain Ratin Pain Location: n/a Pain Goal: Remain pain free Pain Plan: tylenol Tomorrow's Labs & Rationales: none
--- NOTE | 2018-05-10 10:58 | Transfer of Care Summary ---
Hospital Course Course Hospital Course: Reason for ICU: Hypotension with sepsis HPI: 88-year-old lady with significant past medical history for hypertension, CKD stage IIIA, chronic venous insufficiency, peptic ulcer, depression, chronic pain on fentanyl, and dementia brought in from [place] for assessment of change in mental status and hypotension. . ICU interval: Patient was started on ceftriaxone and this switch to cephalexin for lower extremity cellulitis. Her white count improved from 4 to 6. She remained afebrile throughout ICU stay, her urine cultures and blood cultures were unremarkable. There was also questionable left deltoid area of induration, however it was not believed that this was a source of infection. She had also developed acute on chronic kidney injury which was secondary to ATN from sepsis, she improved with IVF. On day 3 she was transferred to [facility]. Mechanical ventilation; No NIPPV: No Antibiotics: Cephalexin (now on day 3) Catheters/lines: Perez removed 05/09 Things to be followed: * Patient will need a follow-up Antonio Laura MD and possibly orthopedics for her left deltoid fluctuating area has low suspicion of an abscess but a progress into one. She previously grew MRSA from a I&D in January, not able to discern what kind of orthopedic work she received. * Her fentanyl patch was DC'd on admission the context of hypotension. She has not required it during this admission and therefore strongly consider not restarting it. She is on double panting which we have changed the dose for a renally adjusted dose. * She was started on calcium carbonate as a phosphate binder nephro. She will need to follow-up with nephrology on an outpatient basis for her CKD.. Assessment/Plan: see above
[2018-05-10] MEDS ORDERED: FERROUS SULFAT325 M2 PO (11:01)
[2018-05-10] MEDS ORDERED: CEPHALEXIN500 M3 PO (11:01)
--- NOTE | 2018-05-10 11:14 | PN- Nephrology ---
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 May also be a component of age related changes. Cannot get a great history in terms of her HTN as to whether or not this may be contributing to her baseline kidney disease. Although a UA cannot rule out non- albumin protein, I think it'd be OK to hold off on a paraprotein work-up at her age with her comorbidities. JETHRO - Likely 2/2 ATN in the setting of hypotension and likely sepsis. Should note that ciprofloxacin can cause crystal induced ATN. [place] urine sediment supportive of these diagnoses. The fact that she is developing pulm edema argues against significant degree of pre-renal azotemia - IVF stopped. Hypocalcemia/Hypophosphatemia - Electrolyte derangements commonly seen in JETHRO from CaXPhos deposition and decreased 25 Vit D activation. Both are improving ( Ca once corrected for albumin is within the normal range) and she can be taken off of this on discharge. Anemia - Iron deficient - on oral iron supplementation. Suggestion: -Would restart home diuretics including spironolactone -Gabapentin can be uptitrated on discharge if/when kidney function returns to baseline -Cont calcium acetate 667mg TID with meals - can likely stop on discharge -Cont iron supplementation Please call [phone] with ?'s Subjective Subjective: SCr down to 1.9 K 3.0 2.9L UOP Pulm edema on chest x-ray Says breathing OK Able to eat/drink Objective Vital Signs and I&Os Vital Signs Date Time Temp Pulse Resp B/P B/P Pulse O2 O2 Flow FiO2 Mean Ox Delivery Rate 05/10 0800 Nasal 2.0L Cannula 05/10 0646 98.0 60 18 110/60 93 Nasal Cannula 05/10 0102 98.3 66 20 124/58 93 Nasal 2.0L Cannula 05/10 0000 93 Nasal 2.0L Cannula 05/09 2226 97.5 62 18 110/62 94 05/09 1600 Nasal 2.0L Cannula 05/09 1509 98.2 79 20 140/70 91 Nasal 2.0L Cannula Intake & Output 05/10 1600 05/10 0400 05/09 1600 05/09 0400 05/08 1600 05/08 0400 Intake Total 250 250 030 650 7239 1579 Output Total 094 621 7579 1100 1250 600 Balance 150 -450 -1810 -500 882 979 Intake, IV 10 10 100 1272 1129 Intake, Oral 240 240 340 600 860 450 Number 1 2 1 1 2 Bowel Movements Output, Urine 907 608 6419 1100 1250 600 Patient 151 lb Weight Weight Bed scale Measurement Method Physical Exam: Gen - NAD HEENT - supple CV - RRR, no m/r/g Chest - very scant basilar crackles Abd - soft, NTND Ext - warm, LLE erythema improved Neuro - alert, conversive although seems confused Current Medications: Current Medications Sig/Kian Start time Last Medication Dose Route Stop Time Status Admin Acetaminophen 1,000 MG Q8P PRN 05/10 0726 AC PO Acetaminophen 325 MG Q6P PRN 05/06 2215 DC 05/10 PO 0548 Calcium Acetate 667 MG WITH MEALS 05/07 1200 AC 05/10 PO 1105 Ceftriaxone Sodium 1,000 MG DAILY 05/07 0900 DC 05/09 IV 0919 Cephalexin 500 MG Q8 05/10 0600 AC 05/10 PO 0547 Duloxetine HCl 60 MG DAILY 05/07 0900 AC 05/10 PO 0839 Fentanyl Citrate 25 MCG Q72H 05/06 2345 AC 05/09 TOP 2123 Ferrous Sulfate 325 MG BID 05/08 2100 AC 05/10 PO 0837 Gabapentin 100 MG Q12 05/08 1200 AC 05/10 PO 0838 Glycerin/Mineral Oil 1 HEIDY TIDPRN PRN 05/10 1000 AC TOP Heparin Sodium 5,000 UNIT Q8 05/07 0600 AC 05/10 (Porcine) SC 0548 Levothyroxine Sodium 0.088 MG 0600 05/07 0600 AC 05/10 PO 0547 Magnesium Oxide 400 MG BID 05/09 1137 AC 05/10 PO 0837 Melatonin 3 MG ONCE ONE 05/10 0300 DC 05/10 PO 05/10 0301 0255 Omeprazole 40 MG DAILY AC 05/07 0700 AC 05/10 PO 0547 Oxycodone HCl 5 MG Q6 PRN 05/09 1000 AC 05/10 PO 1105 Polyethylene Glycol 17 GM DAILY 05/07 0900 AC 05/10 PO 0838 Potassium Chloride 60 MEQ ONCE ONE 05/10 1000 DC 05/10 PO 05/10 1001 1105 Potassium Chloride 40 MEQ ONCE ONE 05/09 1230 CAN PO 05/09 1231 Potassium Chloride 40 MEQ ONCE ONE 05/09 1230 DC 05/09 PO 05/09 1231 1230 Potassium Chloride 40 MEQ ONCE ONE 05/09 1145 CAN PO 05/09 1146 Senna/Docusate Sodium 2 TAB DAILY 05/07 0900 AC 05/10 PO 0838 Results Pertinent Lab Results: Laboratory Tests 05/10 05/09 0805 0500 Chemistry Sodium (137 - 145 mmol/L) 144 142 Potassium (3.5 - 5.1 mmol/L) 3.0 L 3.1 L Chloride (98 - 107 mmol/L) 106 106 Carbon Dioxide (22 - 30 mmol/L) 29 25 Anion Gap (5 - 16) 9 10 BUN (7 - 17 mg/dL) 28 H 30 H Creatinine (0.5 - 1.0 mg/dL) 1.9 H 2.7 H Estimated GFR (>60 ml/min) 25 L 17 L BUN/Creatinine Ratio (7 - 25 %) 14.7 Glucose (65 - 99 mg/dL) 88 Calcium (8.4 - 10.2 mg/dL) 7.8 L Phosphorus (2.5 - 4.5 mg/dL) 3.7 Magnesium (1.6 - 2.3 mg/dL) 1.6 Total Bilirubin (0.2 - 1.3 mg/dL) 0.5 AST (14 - 36 U/L) 20 ALT (9 - 52 U/L) 29 Albumin (3.5 - 5.0 g/dL) 2.4 L Hematology CBC w Diff NO MAN DIFF REQ WBC (4.8 - 10.8 /CUMM) 6.3 RBC (4.20 - 5.40 /CUMM) 4.14 L Hgb (12.0 - 16.0 G/DL) 9.6 L Hct (37 - 47 %) 29.8 L MCV (81.0 - 99.0 FL) 72.0 L MCH (27.0 - 31.0 PG) 23.1 L MCHC (33.0 - 37.0 G/DL) 32.1 L RDW (11.5 - 14.5 %) 17.5 H Plt Count (130 - 400 /CUMM) 182 MPV (7.4 - 10.4 FL) 7.8 Gran % (42.2 - 75.2 %) 76.9 H Lymphocytes % (20.5 - 51.1 %) 13.7 L Monocytes % (1.7 - 9.3 %) 8.7 Eosinophils % (0 - 5 %) 0.5 Basophils % (0.0 - 2.0 %) 0.2 Absolute Granulocytes (1.4 - 6.5 /CUMM) 4.9 Absolute Lymphocytes (1.2 - 3.4 /CUMM) 0.9 L Absolute Monocytes (0.10 - 0.60 /CUMM) 0.6 Absolute Eosinophils (0.0 - 0.7 /CUMM) 0 Absolute Basophils (0.0 - 0.2 /CUMM) 0 05/08 0420 Chemistry Sodium (137 - 145 mmol/L) 140 Potassium (3.5 - 5.1 mmol/L) 3.7 Chloride (98 - 107 mmol/L) 107 Carbon Dioxide (22 - 30 mmol/L) 22 Anion Gap (5 - 16) 10 BUN (7 - 17 mg/dL) 36 H Creatinine (0.5 - 1.0 mg/dL) 3.2 H Estimated GFR (>60 ml/min) 14 L Glucose (65 - 99 mg/dL) 89 Calcium (8.4 - 10.2 mg/dL) 7.3 L Phosphorus (2.5 - 4.5 mg/dL) 5.3 H Magnesium (1.6 - 2.3 mg/dL) 1.6 Total Bilirubin (0.2 - 1.3 mg/dL) 0.3 AST (14 - 36 U/L) 22 ALT (9 - 52 U/L) 25 Albumin (3.5 - 5.0 g/dL) 2.2 L Hematology CBC w Diff NO MAN DIFF REQ WBC (4.8 - 10.8 /CUMM) 5.5 RBC (4.20 - 5.40 /CUMM) 3.93 L Hgb (12.0 - 16.0 G/DL) 9.1 L Hct (37 - 47 %) 28.2 L MCV (81.0 - 99.0 FL) 71.8 L MCH (27.0 - 31.0 PG) 23.0 L MCHC (33.0 - 37.0 G/DL) 32.1 L RDW (11.5 - 14.5 %) 17.4 H Plt Count (130 - 400 /CUMM) 166 MPV (7.4 - 10.4 FL) 7.7 Gran % (42.2 - 75.2 %) 78.1 H Lymphocytes % (20.5 - 51.1 %) 13.4 L Monocytes % (1.7 - 9.3 %) 8.0 Eosinophils % (0 - 5 %) 0.3 Basophils % (0.0 - 2.0 %) 0.2 Absolute Granulocytes (1.4 - 6.5 /CUMM) 4.3 Absolute Lymphocytes (1.2 - 3.4 /CUMM) 0.7 L Absolute Monocytes (0.10 - 0.60 /CUMM) 0.4 Absolute Eosinophils (0.0 - 0.7 /CUMM) 0 Absolute Basophils (0.0 - 0.2 /CUMM) 0 Imaging/Other Studies: Chest X-ray IMPRESSION: 1. Limited exam. 2. Findings are suspicious for interval development of pulmonary edema with small bilateral pleural effusions, left greater than right. 3. Left basilar atelectasis or consolidation also seen, new compared to prior exam.
--- NOTE | 2018-05-10 12:46 | Discharge Summary ---
Visit Information Visit Dates Admission Date: 05/06/18 Discharge Date: 05/10/18 Hospital Course Course Attending Physician: Yomi Worrell MD Primary Care Physician: Salinas Madsen MD Hospital Course: 88-year-old lady with significant past medical history for hypertension, CKD stage IIIA, chronic venous insufficiency, peptic ulcer, depression, chronic pain on fentanyl, and dementia brought in from [place] for assessment of change in mental status and hypotension. She was admitted to ICU then transferred to general medicine and treated for the following conditions: 1. Septic shock secondary to cellulitis 2. ATN 3. Left deltoid wound #Septic shock secondary to cellulitis: Patient presented hypotensive and source of infection in LLE. She did not require any pressors. TTE showed stage 1 diastolic dysfunction. Patient was started on ceftriaxone for lower extremity cellulitis. Her white count improved from 4 to 6. She remained afebrile throughout stay, her urine cultures and blood cultures were unremarkable. She was switched to cephalexin and will continue this for 10 day course. #ATN: Patient developed acute on chronic kidney injury which was secondary to ATN from sepsis, she improved with IVF. US revealed atrophic left kidney. Neprhology was consulted. She was started on calcium carbonate as a phosphate binder nephro, but this was stopped at discharge. She will need to follow-up with nephrology on an outpatient basis for her CKD. #Left deltoid wound: Patient noted to have area of flutuence on left deltoid with evidence of previous surgery. US revealed a complex superficial fluid collection in the superficial soft tissues of the left shoulder, possibly a ganglion cyst with internal calcifications versus a complex infected fluid collection. Surgery was consulted. Patient will need a follow-up Antonio Laura MD and possibly orthopedics for her left deltoid fluctuating area has low suspicion of an abscess but a progress into one. There is concern for skin cancer, biopsy may be necessary. #Chronic medical issues: Home medications were otherwise continued. Allergies: Coded Allergies: cetirizine (UNKNOWN PER 03/26/16) diazepam (UNKNOWN PER 03/26/16) Disposition Summary Disposition Principal Diagnosis: 1. Sepsis secondary to cellulitis Additional Diagnosis: 2. ATN 3. Left deltoid wound Discharge Disposition: SNF Discharge Instructions General Discharge Information Code Status: Do Not Resucitate/Intubat Patient's Diet: Regular Patient's Activity: As tolerated Follow-Up Instructions/Appts: Please take all medications as directed. Please follow up with primary care, nephrology, and surgery. Medications at Discharge Discharge Medications: Continue taking these medications: Omeprazole (Omeprazole) 10 MG CAPSULE. 1 Capsule ORAL 0600 Qty = 30 Comments: 40 MG GIVEN 05/10/18 6AM Polyethylene Glycol 3350 (Miralax) 17 GM POWD.PACK 1 Packet ORAL DAILY Instructions: dissolve in water Comments: GIVEN 05/10/18 @ 0919 Duloxetine HCl (Duloxetine HCl) 60 MG CAPSULE.DR 1 Capsule ORAL DAILY Comments: GIVEN 05/10/18 @ 0918 Lubiprostone (Amitiza) 8 MCG CAPSULE 1 Capsule ORAL DAILY Comments: NOT GIVEN Escitalopram Oxalate (Lexapro) 10 MG TABLET 1 Tablet ORAL DAILY Comments: NOT GIVEN Spironolactone (Spironolactone) 25 MG TABLET 12.5 Milligram ORAL DAILY Instructions: Reason to Stop at ADM: HYPOTENSIVE Comments: NOT GIVEN Furosemide (Lasix) 40 MG TABLET 0.75 Tablet ORAL TWICE DAILY Instructions: Reason to Stop at ADM: HYPOTENSIVE AND ON FLUIDS Comments: NOT GIVEN Acetaminophen (Acetaminophen) 500 MG TABLET 1 Tablet ORAL THREE TIMES DAILY Comments: NOT GIVEN Fentanyl (Duragesic) 25 MCG/HOUR PATCH.TD72 1 PATCH TRANSDERM EVERY 72 HOURS (EVERY 3 DAYS) Qty = 30 Comments: GIVEN 05/09/18 @ 0919PM Gabapentin (Gabapentin) 100 MG CAPSULE 3 Capsule ORAL THREE TIMES DAILY Qty = 60 Comments: GIVEN 05/09/18 @ 0918 Bisacodyl (Bisacodyl) 10 MG SUPP.RECT 10 Milligram RECTALLY as needed for IF MOM NOT EFFECTIVE Comments: NOT GIVEN Na Phos,M-B/Na Phos,Di-Ba (Fleet Enema) 19 GRAM-7 GRAM/118 ML ENEMA RECTALLY as needed for IF DUCOLAX INEFFECTIVE Comments: NOT GIVEN Magnesium Hydroxide (Milk Of Magnesia) 400 MG/5 ML ORAL.SUSP 30 Milliliters ORAL as needed for CONSTIPATION Mag Hydrox/Al Hydrox/Simeth (Mintox Suspension) 200 MG-200 MG-20 MG/5 ML ORAL.SUSP 20 Milliliters ORAL EVERY 6 HOURS NEEDED as needed for GI UPSET Comments: NOT GIVEN Oxycodone HCl (Oxycodone HCl) 10 MG TABLET 0.5 Tablet ORAL THREE TIMES DAILY Comments: GIVEN 05/10/18 1100 Cranberry Extract (Cranberry) 200 MG CAPSULE 1 Tablet ORAL DAILY Comments: NOT GIVEN Metoprolol Tartrate (Metoprolol Tartrate) 25 MG TABLET 0.5 Milligram ORAL TWICE DAILY Days = 30 Comments: NOT GIVEN Levothyroxine Sodium (Synthroid) 88 MCG TABLET 1 Tablet ORAL DAILY Qty = 30 Comments: Last Taken:05/10/18 Time:5AM Start taking the following new medications: Cephalexin (Cephalexin) 500 MG CAPSULE 500 Milligram ORAL EVERY 8 HOURS Qty = 18 No Refills Comments: Last Taken:05/10/18 Time:1320 Ferrous Sulfate (Ferrous Sulfate) 325 MG (65 MG IRON) TABLET. 325 Milligram ORAL TWICE DAILY Qty = 60 No Refills Comments: Last Taken:05/10/18 Time:9AM Copies To: Derick WYNN,Inder Matson; Tena WYNN,[place] Edge; Valentín WYNN,Antonio Ordaz; Estevan WYNN, Wilfredo Seo Attending MD Review Statement Documenting Attending: Yomi Worrell MD Other Findings: The patient was seen on the day of discharge. Discussed with Dr. Vann- will do further evaluation of left shoulder as OP if needed. OK to return to [place] today.
[2018-05-10 14:19] VITALS: BP 110/60
== END 2018-05-10 15:31 | DRG 871 ==
LOC: ERH 16:24 → CRI 21:48 → ERHI 21:48 → ENRESERV 22:53 → CRI 23:54 → ENTRNSPT 05-09 13:46 → EDTRNSPT 05-09 13:50 → EDTRNSPTSTS 05-09 14:32 → EDTRNSPT 05-09 14:32 → 2NA 05-09 14:57 → CMPTRNSPT 05-09 15:01 → 2NA 05-10 10:57 → ENPENDDIS 05-10 14:18 → 2NA 05-10 15:31
PROVIDERS: Internal Medicine Endocrinology, Diabetes & Metabolism; Physician Assistant; Preventive Medicine Public Health & General Preventive Medicine; Student in an Organized Health Care Education/Training Program
DX: A41.9 Sepsis, unspecified organism (principal); N17.0 Acute kidney failure with tubular necrosis; L03.116 Cellulitis of left lower limb; L03.115 Cellulitis of right lower limb; N17.9 Acute kidney failure, unspecified; I13.0 Hypertensive heart and chronic kidney disease with heart failure and stage 1 through stage 4 chronic kidney disease, or unspecified chronic kidney disease; I50.32 Chronic diastolic (congestive) heart failure; L02.414 Cutaneous abscess of left upper limb; R65.20 Severe sepsis without septic shock; N18.3 Chronic kidney disease, stage 3 (moderate); E03.9 Hypothyroidism, unspecified; D69.6 Thrombocytopenia, unspecified; F03.90 Unspecified dementia, unspecified severity, without behavioral disturbance, psychotic disturbance, mood disturbance, and anxiety; G89.4 Chronic pain syndrome; E86.0 Dehydration; E83.51 Hypocalcemia; E83.39 Other disorders of phosphorus metabolism; I25.2 Old myocardial infarction; I87.2 Venous insufficiency (chronic) (peripheral); F32.9 Major depressive disorder, single episode, unspecified; K27.9 Peptic ulcer, site unspecified, unspecified as acute or chronic, without hemorrhage or perforation; Z88.8 Allergy status to other drugs, medicaments and biological substances; K21.9 Gastro-esophageal reflux disease without esophagitis; F41.9 Anxiety disorder, unspecified; M54.9 Dorsalgia, unspecified; Z90.710 Acquired absence of both cervix and uterus; D64.9 Anemia, unspecified; Z66 Do not resuscitate; G62.9 Polyneuropathy, unspecified; D50.9 Iron deficiency anemia, unspecified
CPT/HCPCS: 2NAP; 84133; 84300; CCU; 36415; 36592; 71045; 76775; 76881; 81001; 82436; 82570; 87040; 87086; 93005; 93010; 93306; J0131; J0696; J1644; J1720; J3370; J7040